=== PATIENT | male | born 1940 | race African-American/Black ===

== ENCOUNTER 2016-09-03 21:49 | Emergency (ER) | payer MEDICARE ==
--- NOTE | 2016-09-03 23:42 | ER Document Report ---
ED Medical Screen (RME) - General Stated Complaint: LEG PAIN Time seen by provider: 23:38 Mode of Arrival: Ambulatory Information source: Patient Notes: 76-year-old male presents to ED for pains, swelling, and numbness to his right leg up to his groin. He states she's had blood clots in the past states he was on blood thinners about 3 years ago not now. Left calf 32 cm right calf 32-1/2 cm. I have greeted and performed a rapid initial assessment of this patient. A comprehensive ED assessment and evaluation of the patient, analysis of test results and completion of medical decision making process will be conducted by an additional ED providers. TRAVEL OUTSIDE OF THE U[place] IN LAST 30 DAYS: No - Related Data Allergies/Adverse Reactions: No Known Allergies Allergy (Verified 03/28/16 20:03) Past Medical History - Past Medical History Cardiac Medical History: Reports: Hx Hypertension Renal/ Medical History: Reports: Hx Kidney Stones - Immunizations Hx Diphtheria, Pertussis, Tetanus Vaccination: Yes Physical Exam - Vital signs Vitals: Temp Pulse Resp BP Pulse Ox 98.1 F 64 16 148/71 H 98 09/03/16 23:13 09/03/16 23:13 09/03/16 23:13 09/03/16 23:13 09/03/16 23:13 Course - Vital Signs Vital signs: Temp Pulse Resp BP Pulse Ox 98.1 F 64 16 148/71 H 98 09/03/16 23:13 09/03/16 23:13 09/03/16 23:13 09/03/16 23:13 09/03/16 23:13
--- NOTE | 2016-09-04 06:40 | ER Document Report ---
ED Extremity Problem, Lower - General Mode of Arrival: Ambulatory Information source: Patient TRAVEL OUTSIDE OF THE U.S. IN LAST 30 DAYS: No - HPI Patient complains to provider of: Pain Location: Leg - Right Occurred: Other - ~08/31/16 Onset/Duration: Gradual, Persistent Context: denies: Recent travel Associated symptoms: Painful ambulation <BEKA DEWITT - Last Filed: 09/04/16 06:35> <TOR ACE - Last Filed: 09/04/16 08:14> - General Chief Complaint: Leg Pain Stated Complaint: LEG PAIN Notes: Patient is a 76-year-old male presenting to the emergency department chief complaint right leg pain for the past 3-4 days. Patient states that his leg feels numb from the hip down with pins and needles. Patient states the pain came on gradually after lifting some heavy items at work at [employer]. Patient has a history of blood clot and his leg, but he cannot remember which leg because it was a few years ago. (BEKA DEWITT) - Related Data Allergies/Adverse Reactions: No Known Allergies Allergy (Verified 09/03/16 23:39) Past Medical History - General Information source: Patient - Social History Smoking Status: Never Smoker Chew tobacco use (# tins/day): No Frequency of alcohol use: None Drug Abuse: None Family History: Reviewed & Not Pertinent - Past Medical History Cardiac Medical History: Reports: Hx Hypertension Renal/ Medical History: Reports: Hx Benign Prostatic Hyperplasia, Hx Kidney Stones. Denies: Hx Peritoneal Dialysis - Immunizations Hx Diphtheria, Pertussis, Tetanus Vaccination: Yes <BEKA DEWITT - Last Filed: 09/04/16 06:35> Review of Systems - Review of Systems Constitutional: No symptoms reported EENT: No symptoms reported Cardiovascular: No symptoms reported Respiratory: No symptoms reported Gastrointestinal: No symptoms reported Genitourinary: No symptoms reported Male Genitourinary: No symptoms reported Musculoskeletal: See HPI, Other - R. leg pain and numbness Skin: No symptoms reported Hematologic/Lymphatic: No symptoms reported Neurological/Psychological: No symptoms reported -: Yes All other systems reviewed and negative <BEKA DEWITT - Last Filed: 09/04/16 06:35> Physical Exam - General General appearance: Appears well, Alert In distress: None - HEENT Head: Normocephalic, Atraumatic Eyes: Normal Pupils: PERRL - Respiratory Respiratory status: No respiratory distress Chest status: Nontender Breath sounds: Normal Chest palpation: Normal - Cardiovascular Rhythm: Regular Heart sounds: Normal auscultation Murmur: No - Abdominal Inspection: Normal Distension: No distension Bowel sounds: Normal Tenderness: Nontender Organomegaly: No organomegaly - Back Back: Normal, Nontender - Extremities General upper extremity: Normal inspection Thigh: Tender - Tenderness over anterior lateral thigh from hip down. - Neurological Neuro grossly intact: Yes Cognition: Normal Elberta Coma Scale Eye Opening: Spontaneous Elberta Coma Scale Verbal: Oriented Claudia Coma Scale Motor: Obeys Commands Elberta Coma Scale Total: 15 Speech: Normal - Psychological Associated symptoms: Normal affect, Normal mood - Skin Skin Temperature: Warm Skin Moisture: Dry Skin Color: Normal <BEKA DEWITT - Last Filed: 09/04/16 06:35> Course <BEKA DEWITT - Last Filed: 09/04/16 06:35> - Laboratory Result Diagrams: 09/04/16 06:45 09/04/16 06:45 <TOR ACE - Last Filed: 09/04/16 08:14> - Re-evaluation Re-evalutation: 09/04/16 08:13 The patient's creatinine has gone up quite a bit since it was checked here in May 2016. He admits he has been taking Motrin for his thigh pain. He was advised to stop all NSAIDs, and several of these were listed for him so he understands. He was advised to take only Tylenol for his discomfort, and primarily rest. Muscles. He is also advised to follow-up with [facility] this week and he was given a copy of his lab work in May and today. ( TOR ACE) - Vital Signs Vital signs: Temp Pulse Resp BP Pulse Ox 98.1 F 64 16 148/71 H 98 09/03/16 23:13 09/03/16 23:13 09/03/16 23:13 09/03/16 23:13 09/03/16 23:13 (BEKA DEWITT) (TOR ACE) - Laboratory Laboratory results interpreted by va: 09/04/16 09/04/16 06:45 06:45 RBC 4.10 L Hgb 12.4 L Hct 37.2 L RDW 15.1 H Seg Neutrophils % 38.0 L Potassium 5.1 H BUN 25 H Creatinine 2.01 H Est GFR ( Amer) 39 L Est GFR (Non-Af Amer) 33 L (TOR ACE) Discharge <BEKA DEWITT - Last Filed: 09/04/16 06:35> <TOR ACE - Last Filed: 09/04/16 08:14> - Discharge Clinical Impression: Renal failure Muscle strain of right thigh Qualifiers: Encounter type: initial encounter Qualified Code(s): S76.911A - Strain of unspecified muscles, fascia and tendons at thigh level, right thigh, initial encounter Condition: Stable Disposition: HOME, SELF-CARE Additional Instructions: Muscle Strain: You have PROBABLY strained a muscle. This often occurs with strenuous exertion, or during an injury that suddenly stretches the muscle. The seriousness of a strain varies. Some strains heal within days, others cause problems for months. X-rays cannot show a muscle strain. X-rays are taken only if symptoms suggest that a fracture could be present. The usual treatment of a muscle strain is rest and ice packs. Sometimes, a sling, splint, or crutches may be necessary to rest the muscle. The muscle can be used again once pain subsides. Severe strains require a special exercise and stretching program to prevent permanent stiffness and disability. Your doctor will advise you if this will be necessary. Call the doctor immediately if pain or swelling becomes severe, or if numbness or discoloration develop. //////////////////////////////////////////////////////////////////////////////// /////////////////////////////////////////////////////////////////////////////// Your pain seems to be coming from the anterior and anterolateral thigh muscles. This is not related to the vein system or clots. Of more concern is we discovered that your serum creatinine has gone up quite a lot in the past 3 months. This indicates worsening kidney function. You should follow-up with your primary care provider this week to review the lab work. Drink plenty of water. Do not take Motrin, aspirin, Aleve, or any other nonsteroidal anti-inflammatory medication for your pain Try to limit your walking to let the muscle rest. RETURN TO THE EMERGENCY ROOM IF ANY NEW OR WORSENING SYMPTOMS. Forms: Return to Work Referrals: [facility] [Provider Group] - Follow up in 3-5 days Scribe Attestation: 09/04/16 08:05 I personally performed the services described in the documentation, reviewed and edited the documentation which was dictated to the scribe in my presence, and it accurately records my words and actions. (TOR ACE) Scribe Documentation - Scribe Written by Scribe:: Beka Dewitt 09/04/2016 0638 acting as scribe for :: Juan Ramon <BEKA DEWITT - Last Filed: 09/04/16 06:35>
[2016-09-04 06:59] LABS: ABSOLUTE BASOPHILS # (AUTO) 0.1 10^3/uL (0.0-0.2); ABSOLUTE EOSINOPHILS # (AUTO) 0.2 10^3/uL (0.0-0.6); ABSOLUTE LYMPHOCYTES (AUTO) 2.3 10^3/uL (0.5-4.7); ABSOLUTE MONOCYTES (AUTO) 0.6 10^3/uL (0.1-1.4); ABSOLUTE NEUT (AUTO) 1.9 10^3/uL (1.7-8.2); BASOPHILS % (AUTO) 1.1 % (0-2); EOSINOPHILS % (AUTO) 4.4 % (0-6); HEMATOCRIT 37.2 % (37.9-51.0); HEMOGLOBIN 12.4 g/dL (13.5-17.0); LYMPHOCYTES % (AUTO) 44.9 % (13-45); MEAN CORPUSCULAR HEMOGLOBIN 30.3 pg (27.0-33.4); MEAN CORPUSCULAR HGB CONC 33.3 g/dL (32.0-36.0); MEAN CORPUSCULAR VOLUME 91 fl (80-97); MONOCYTES % (AUTO) 11.6 % (3-13); RED CELL DISTRIBUTION WIDTH 15.1 % (11.5-14.0); WHITE BLOOD COUNT 5.1 10^3/uL (4.0-10.5)
[2016-09-04 07:12] LABS: ALANINE AMINOTRANSFERASE 25 U/L (21-72); ALBUMIN 3.8 g/dL (3.5-5.0); ALKALINE PHOSPHATASE 61 U/L (38-126); ANION GAP 7 (5-19); ASPARTATE AMINO TRANSFERASE 26 U/L (17-59); BILIRUBIN,TOTAL 0.5 mg/dL (0.2-1.3); BLOOD UREA NITROGEN 25 mg/dL (7-20); CALCIUM 9.8 mg/dL (8.4-10.2); CARBON DIOXIDE 29 mmol/L (22-30); CHLORIDE 104 mmol/L (98-107); CREATINE KINASE 127 U/L (55-170); CREATININE RESULT 2.01 mg/dL (0.52-1.25); GLUCOSE 98 mg/dL (75-110); POTASSIUM 5.1 mmol/L (3.6-5.0); SODIUM 140.4 mmol/L (137-145); TOTAL PROTEIN 6.6 g/dL (6.3-8.2)
[2016-09-04 08:28] VITALS: BP 149/66
== END 2016-09-04 08:27 | disposition home or self-care (01) ==
LOC: ER 21:49
DX: S76.911A Strain of unspecified muscles, fascia and tendons at thigh level, right thigh, initial encounter (principal); X50.0XXA Overexertion from strenuous movement or load, initial encounter; Y92.512 Supermarket, store or market as the place of occurrence of the external cause; Y99.0 Civilian activity done for income or pay; N19 Unspecified kidney failure; I10 Essential (primary) hypertension; R20.0 Anesthesia of skin; M79.651 Pain in right thigh; Z86.718 Personal history of other venous thrombosis and embolism
CPT/HCPCS: 36415; 80053; 82550; 85025; 85379; 99283

== ENCOUNTER 2016-10-02 05:34 | Emergency (ER) | payer OTHER, MEDICARE ==
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
[2016-10-02 09:13] VITALS: BP 148/75
== END 2016-10-02 09:05 | disposition home or self-care (01) ==
LOC: ER 05:34
DX: G62.9 Polyneuropathy, unspecified (principal); M79.651 Pain in right thigh; V48.5XXA Car driver injured in noncollision transport accident in traffic accident, initial encounter; I12.9 Hypertensive chronic kidney disease with stage 1 through stage 4 chronic kidney disease, or unspecified chronic kidney disease; N18.9 Chronic kidney disease, unspecified
CPT/HCPCS: 93971; 99283

== ENCOUNTER 2017-11-15 16:39 | Emergency (ER) | payer MEDICARE ==
[2017-11-15] MEDS ORDERED: MAG HYDROX/AL HYDROX/SIMETH SUSP 30 ML UDCUP PO ONE (17:18)
[2017-11-15] MEDS ORDERED: METOCLOPRAMIDE HCL ORAL SOLN 10 MG/10 ML UDCUP PO ONE (17:18)
[2017-11-15] MEDS ORDERED: LIDOCAINE 2% VISCOUS SOLN 20 ML UDCUP PO ONE (17:18)
[2017-11-15] MEDS ORDERED: NORMAL SALINE 1000 ML 1,000 ML IV ONE (17:19)
[2017-11-15] MEDS ORDERED: KETOROLAC TROMETHAMINE INJ/PF 30 MG/1 ML SDV IV ONE (17:19)
--- NOTE | 2017-11-15 17:19 | ER Document Report ---
ED Medical Screen (RME) - General Chief Complaint: Skin Problem Stated Complaint: BODY PAIN Time Seen by Provider: 11/15/17 17:04 TRAVEL OUTSIDE OF THE U.S. IN LAST 30 DAYS: No - HPI Notes: 11/15/17 17:14 Patient is a 77-year-old male presents to the ED complaining of epigastric abdominal pain as well as continued pain from his shingles outbreak over the last couple weeks. Patient states that his abdominal pain is a burning sensation that is worsened with any p.o. intake. Patient states that he has not been able to eat or drink much of anything in the last 4 days. He still urinating normally otherwise and having bowel movements. Patient states that he believes he was on antiviral medications during the shingles outbreak initially, but has had a lot of pain in this area since then. Denies any drug allergies. Denies any headache, fever, URI, sore throat, chest pain, palpitations, syncope, cough, shortness of breath, wheeze, dyspnea, urinary retention, dysuria, hematuria, loss of control of bowel or bladder, numbness/ tingling, saddle anesthesia, muscle paralysis/weakness, or rash. I have treated and performed a rapid initial assessment of this patient. A comprehensive ED assessment and evaluation of the patient, analysis of test results and completion of medical decision making process will be conducted by additional ED providers. PHYSICAL EXAMINATION: GENERAL: Well-appearing, well-nourished and in no acute distress. A&Ox4. Answers questions appropriately. LUNGS: Breath sounds clear to auscultation bilaterally and equal. No wheezes rales or rhonchi. HEART: Regular rate and rhythm without murmurs, rubs, gallops. ABDOMEN: Soft, nondistended abdomen. No guarding, no rebound. No masses appreciated. Normal bowel sounds present. No CVA tenderness bilaterally. + moderate epigastric tenderness Extremities: No cyanosis, clubbing, or edema b/l. NEUROLOGICAL: Normal speech, normal gait. PSYCH: Normal mood, normal affect. Skin: herpes zoster approx dermatome T10-11, does not appear acute. - Related Data Allergies/Adverse Reactions: No Known Allergies Allergy (Verified 11/15/17 16:50) Past Medical History - Past Medical History Cardiac Medical History: Reports: Hx Hypertension Renal/ Medical History: Reports: Hx Benign Prostatic Hyperplasia, Hx Kidney Stones. Denies: Hx Peritoneal Dialysis - Immunizations Hx Diphtheria, Pertussis, Tetanus Vaccination: Yes Physical Exam - Vital signs Vitals: Temp Pulse Resp BP Pulse Ox 97.9 F 87 18 109/71 98 11/15/17 16:46 11/15/17 16:46 11/15/17 16:46 11/15/17 16:46 11/15/17 16:46 Course - Vital Signs Vital signs: Temp Pulse Resp BP Pulse Ox 97.9 F 87 18 109/71 98 11/15/17 16:46 11/15/17 16:46 11/15/17 16:46 11/15/17 16:46 11/15/17 16:46
[2017-11-15 18:29] LABS: ABSOLUTE EOSINOPHILS # (AUTO) 0.1 10^3/uL (0.0-0.6); ABSOLUTE LYMPHOCYTES (AUTO) 1.9 10^3/uL (0.5-4.7); ABSOLUTE MONOCYTES (AUTO) 0.5 10^3/uL (0.1-1.4); ABSOLUTE NEUT (AUTO) 1.9 10^3/uL (1.7-8.2); BASOPHILS % (AUTO) 0.3 % (0-2); EOSINOPHILS % (AUTO) 2.5 % (0-6); HEMATOCRIT 37.4 % (37.9-51.0); HEMOGLOBIN 12.6 g/dL (13.5-17.0); LYMPHOCYTES % (AUTO) 43.5 % (13-45); MEAN CORPUSCULAR HEMOGLOBIN 30.7 pg (27.0-33.4); MEAN CORPUSCULAR HGB CONC 33.8 g/dL (32.0-36.0); MEAN CORPUSCULAR VOLUME 91 fl (80-97); PLATELET COUNT 240 10^3/uL (150-450); RED BLOOD COUNT 4.11 10^6/uL (4.35-5.55); RED CELL DISTRIBUTION WIDTH 14.9 % (11.5-14.0); SEGMENTED NEUTROPHILS % (AUTO) 42.7 % (42-78); TOTAL CELLS COUNTED % (AUTO) 100 %; WHITE BLOOD COUNT 4.4 10^3/uL (4.0-10.5)
[2017-11-15 18:47] LABS: ALANINE AMINOTRANSFERASE 20 U/L (21-72); ALBUMIN 4.3 g/dL (3.5-5.0); ALKALINE PHOSPHATASE 64 U/L (38-126); ANION GAP 8 (5-19); ASPARTATE AMINO TRANSFERASE 27 U/L (17-59); BILIRUBIN,DIRECT 0.3 mg/dL (0.0-0.4); BILIRUBIN,TOTAL 0.7 mg/dL (0.2-1.3); BLOOD UREA NITROGEN 19 mg/dL (7-20); CALCIUM 10.5 mg/dL (8.4-10.2); CARBON DIOXIDE 34 mmol/L (22-30); CHLORIDE 100 mmol/L (98-107); GLUCOSE 110 mg/dL (75-110); LIPASE 156.7 U/L (23-300); POTASSIUM 4.2 mmol/L (3.6-5.0); SODIUM 141.9 mmol/L (137-145); TOTAL PROTEIN 7.8 g/dL (6.3-8.2)
--- NOTE | 2017-11-15 18:53 | ER Document Report ---
ED General - General Chief Complaint: Skin Problem Stated Complaint: BODY PAIN Time Seen by Provider: 11/15/17 17:04 Notes: The patient is a 77-year-old male who was diagnosed with shingles in [place] 3 weeks ago and finished his course of antivirals, presents with continuing pain at the site of his rash. In addition, he is having epigastric pain is a burning sensation and is worse after he eats. He moved to [place] from [place] and is in the process of obtaining a primary care physician. He denies nausea, vomiting, chest pain, shortness of breath, diarrhea, constipation, fevers or headache. TRAVEL OUTSIDE OF THE [place] IN LAST 30 DAYS: No - Related Data Allergies/Adverse Reactions: No Known Allergies Allergy (Verified 11/15/17 16:50) Past Medical History - General Information source: Patient - Social History Smoking Status: Former Smoker Family History: Reviewed & Not Pertinent Patient has suicidal ideation: No Patient has homicidal ideation: No - Past Medical History Cardiac Medical History: Reports: Hx Hypertension Renal/ Medical History: Reports: Hx Benign Prostatic Hyperplasia, Hx Kidney Stones. Denies: Hx Peritoneal Dialysis - Immunizations Hx Diphtheria, Pertussis, Tetanus Vaccination: Yes Review of Systems - Review of Systems Notes: REVIEW OF SYSTEMS: CONSTITUTIONAL: -fevers, -chills EENT: -eye pain, -difficulty swallowing, -nasal congestion CARDIOVASCULAR: -chest pain, -syncope. RESPIRATORY: -cough, -SOB GASTROINTESTINAL: +epigastric abdominal pain, -nausea, -vomiting, -diarrhea GENITOURINARY: -dysuria, -hematuria MUSCULOSKELETAL: -back pain, -neck pain SKIN: +painful rash HEMATOLOGIC: -easy bruising or bleeding. LYMPHATIC: -swollen, enlarged glands. NEUROLOGICAL: -altered mental status or loss of consciousness, -headache, - neurologic symptoms PSYCHIATRIC: -anxiety, -depression. ALL OTHER SYSTEMS REVIEWED AND NEGATIVE. Physical Exam - Vital signs Vitals: Temp Pulse Resp BP Pulse Ox 97.9 F 87 18 109/71 98 11/15/17 16:46 11/15/17 16:46 11/15/17 16:46 11/15/17 16:46 11/15/17 16:46 - Notes Notes: PHYSICAL EXAMINATION: GENERAL: Well-appearing, well-nourished and in no acute distress. HEAD: Atraumatic, normocephalic. EYES: Pupils equal round and reactive to light, extraocular movements intact, sclera anicteric, conjunctiva are normal. ENT: nares patent, oropharynx clear without exudates. Moist mucous membranes. NECK: Normal range of motion, supple without lymphadenopathy LUNGS: Breath sounds clear to auscultation bilaterally and equal. No wheezes rales or rhonchi. HEART: Regular rate and rhythm without murmurs ABDOMEN: Soft, mild epigastric tenderness, normoactive bowel sounds. No guarding, no rebound. No masses appreciated. EXTREMITIES: Normal range of motion, no pitting or edema. No cyanosis. NEUROLOGICAL: Cranial nerves grossly intact. Normal speech, normal gait. Normal sensory and motor exams. PSYCH: Normal mood, normal affect. SKIN: Crusted lesions in the right T10 dermatome, consistent with shingles. Course - Re-evaluation Re-evalutation: Patient appears well. His 3 weeks of shingles are mostly crusted over, but they are still painful. Will begin him on low-dose gabapentin and Curtiss for severe pain with follow-up at his primary care physician. He also has symptoms of gastritis and esophagitis that resolved after GI cocktail and will begin him on a PPI. Blood work is unremarkable. Symptoms are atypical for ACS, aortic dissection or PE at this time. Given very strict return precautions and he understands. - Vital Signs Vital signs: Temp Pulse Resp BP Pulse Ox 98.6 F 100 18 148/84 H 100 11/15/17 19:20 11/15/17 19:20 11/15/17 19:20 11/15/17 19:20 11/15/17 19:20 - Laboratory Result Diagrams: 11/15/17 18:11 11/15/17 18:11 Laboratory results interpreted by me: 11/15/17 11/15/17 18:11 18:11 RBC 4.11 L Hgb 12.6 L Hct 37.4 L RDW 14.9 H Carbon Dioxide 34 H Creatinine 1.68 H Est GFR ( Amer) 48 L Est GFR (Non-Af Amer) 40 L Calcium 10.5 H ALT 20 L Discharge - Discharge Clinical Impression: Epigastric pain, Shingles (herpes zoster) polyneuropathy Condition: Stable Disposition: HOME, SELF-CARE Additional Instructions: Shingles You have shingles. Shingles is caused by the chicken pox virus, The virus has been surviving dormant in a nerve cell since you had chicken pox years ago. The virus has spread down a nerve root to reach the skin. Typically, an band-like area of pain and skin sensitivity develops, then small blisters erupt in the area. Shingles lasts two or three weeks, but sometimes leaves persistent pain. You are contagious -- you can give children chicken pox. But you can't give anyone shingles. Antiviral medicines (such as acyclovir or famciclovir) can help, but the rash usually worsens for about a week. Pain medication is often given if the area hurts. Antihistamines such as Benadryl may be necessary for itching if it does not respond to soda baths and calamine lotion. Sometimes cortisone medicine or nerve-block shots are necessary if pain is severe. If the area remains severely painful as the sores heal, or if you suspect an infection developing in the sores, see your doctor. Gastritis You have an inflammation of the stomach called gastritis. This commonly causes upper abdominal pain, nausea, and vomiting. In severe cases, bleeding of the stomach lining can occur. Gastritis can be caused by bacteria or viruses , alcohol, or stomach-irritating drugs. Begin with sips of clear liquids. Take increasing amounts of fluid over the first 24 hours. Then start small amounts of bland foods (such as dry toast , applesauce, mashed potato). Gradually resume your usual diet. You should take antacids every two hours until the pain has subsided. Acid -suppressing drugs may be prescribed as well. Avoid aspirin, caffeine, tobacco , and alcohol. If the abdominal pain worsens, or there is evidence of major bleeding in the stomach (such as black, tarry stool, bloody or black vomit, or lightheadedness), you should return immediately. Call the doctor if you aren't improved in 24 to 36 hours. Prescriptions: Gabapentin [Neurontin 300 mg Capsule] 300 mg PO QHS #30 cap Hydrocodone/Acetaminophen [Curtiss 5-325 mg Tablet] 1 tab PO Q6H PRN #10 tablet PRN Reason: Omeprazole Magnesium [Prilosec Otc] 20 mg PO Q12H #14 tablet.dr Referrals: KATHRYN SMITH MD [[facility]UNITY BASED STAFF] - Follow up as needed
[2017-11-15 19:30] VITALS: BP 148/84
== END 2017-11-15 19:23 | disposition home or self-care (01) ==
LOC: ER 16:39
DX: R10.13 Epigastric pain (principal); B02.9 Zoster without complications; G62.9 Polyneuropathy, unspecified; I10 Essential (primary) hypertension; Z87.442 Personal history of urinary calculi
CPT/HCPCS: 99284; 96361; 96374; 36415; 83690; 85025; 80053; J3490; J1885; A9270; J7030

== ENCOUNTER 2017-11-26 14:35 | Inpatient (IN) | payer OTHER, MEDICARE ==
--- NOTE | 2017-11-26 15:24 | ER Document Report ---
ED General - General Chief Complaint: Syncope Stated Complaint: FALL/HEAD INJURY Time Seen by Provider: 11/26/17 15:08 Mode of Arrival: Medic Information source: Patient TRAVEL OUTSIDE OF THE [place] IN LAST 30 DAYS: No - HPI Patient complains to provider of: passing out Onset: Just prior to arrival Onset/Duration: Sudden Quality of pain: Dull - hit head on floor after passing out Associated symptoms: None Exacerbated by: Denies Relieved by: Denies Similar symptoms previously: No Recently seen / treated by doctor: No - just moved here from [place]-no PMD here yet Notes: 77-year-old male states he was sitting in a chair ready to take his meds for his hypertension when he passed out. He states he awoke on the floor had the phone next to him and called 911.Patient states he recently relocated here from [place] has not established a primary medical doctor yet although he does have a name to call for an appointment. He states he does have relatives that live in the area and they do visit him however he does live alone. - Related Data Allergies/Adverse Reactions: No Known Allergies Allergy (Verified 11/15/17 16:50) Past Medical History - General Information source: Patient, [facility] Records - Social History Smoking Status: Unknown if Ever Smoked Frequency of alcohol use: None Lives with: Alone Family History: Reviewed & Not Pertinent, Hypertension Patient has suicidal ideation: No Patient has homicidal ideation: No - Past Medical History Cardiac Medical History: Reports: Hx Hypertension Pulmonary Medical History: Reports: None Neurological Medical History: Reports: None Renal/ Medical History: Reports: Hx Benign Prostatic Hyperplasia, Hx Kidney Stones. Denies: Hx Peritoneal Dialysis Skin Medical History: Reports Other - Postherpetic neuralgia right flank area - Immunizations Hx Diphtheria, Pertussis, Tetanus Vaccination: Yes Review of Systems - Review of Systems Constitutional: Weakness. denies: Fever EENT: No symptoms reported Cardiovascular: Syncope, Dizziness, Lightheaded Respiratory: No symptoms reported Gastrointestinal: Diarrhea - This week, Nausea, Vomiting Genitourinary: No symptoms reported Skin: Other - Shingles Neurological/Psychological: No symptoms reported Physical Exam - Vital signs Vitals: Resp BP Pulse Ox 14 154/69 H 98 11/26/17 14:41 11/26/17 14:41 11/26/17 14:41 - Notes Notes: PHYSICAL EXAMINATION: GENERAL: Well-appearing, well-nourished and in no acute distress. HEAD: Atraumatic, normocephalic. EYES: Pupils equal round and reactive to light, extraocular movements intact, sclera anicteric, conjunctiva are normal. ENT: Nares patent, oropharynx clear without exudates. Moist mucous membranes. NECK: Normal range of motion, supple without lymphadenopathy LUNGS: Breath sounds clear to auscultation bilaterally and equal. No wheezes rales or rhonchi. HEART: Regular rate and rhythm without murmurs ABDOMEN: Soft, Right flank and right mid quadrant scarring status post shingles with current postherpetic neuralgia, nondistended abdomen. No guarding, no rebound. No masses appreciated. Musculoskeletal: Normal range of motion, +1 pitting edema. No cyanosis. NEUROLOGICAL: Cranial nerves grossly intact. Normal speech. Normal sensory, motor exams PSYCH: Normal mood, normal affect. SKIN: Warm, Dry, normal turgor, no rashes noted. Course - Re-evaluation Re-evalutation: 11/26/17 16:[address] 11/26/17 00:00 IMPRESSION: No acute intracranial changes. EVIDENCE OF ACUTE STROKE: NO. Mucosal thickening is noted left maxillary antrum. Chest X-Ray 11/26/17 15:16 IMPRESSION: NO ACUTE RADIOGRAPHIC FINDING IN THE CHEST. Labs- All tests 24 hr 11/26/17 11/26/17 16:18 16:18 WBC 4.6 RBC 4.40 Hgb 13.5 Hct 39.9 MCV 91 MCH 30.6 MCHC 33.7 RDW 15.1 H Plt Count 288 Seg Neutrophils % 61.1 Lymphocytes % 28.7 Monocytes % 8.7 Eosinophils % 0.6 Basophils % 0.9 Absolute Neutrophils 2.8 Absolute Lymphocytes 1.3 Absolute Monocytes 0.4 Absolute Eosinophils 0.0 Absolute Basophils 0.0 Sodium 141.2 Potassium 4.5 Chloride 98 Carbon Dioxide 30 Anion Gap 13 BUN 29 H Creatinine 1.92 H Est GFR ( Amer) 41 L Est GFR (Non-Af Amer) 34 L Glucose 110 Calcium 10.5 H Magnesium 2.5 H Total Bilirubin 0.7 Direct Bilirubin 0.4 Neonat Total Bilirubin Not Reportable Neonat Direct Bilirubin Not Reportable Neonat Indirect Bili Not Reportable AST 31 ALT 30 Alkaline Phosphatase 59 Total Protein 7.8 Albumin 4.3 - Vital Signs Vital signs: Temp Pulse Resp BP Pulse Ox 98.3 F 80 18 142/63 H 97 11/26/17 14:50 11/26/17 15:27 11/26/17 15:27 11/26/17 15:27 11/26/17 15:27 - Laboratory Result Diagrams: 11/26/17 16:18 11/26/17 16:18 Laboratory results interpreted by me: 11/26/17 11/26/17 16:18 16:18 RDW 15.1 H BUN 29 H Creatinine 1.92 H Est GFR ( Amer) 41 L Est GFR (Non-Af Amer) 34 L Calcium 10.5 H Magnesium 2.5 H - Diagnostic Test Radiology reviewed: Image reviewed, Reports reviewed - EKG Interpretation by Me EKG shows normal: Sinus rhythm - 75 When compared to previous EKG there are: Previous EKG unavailable Discharge - Discharge Clinical Impression: Syncope, Renal insufficiency syndrome Condition: Stable Disposition: ADMITTED INPATIENT Admitting Provider: Hospitalist - Dr. Joe Unit Admitted: Telemetry
--- NOTE | 2017-11-26 15:36 | RADIOLOGY REPORT (SQ) ---
EXAM DESCRIPTION: CT HEAD WITHOUT COMPLETED DATE/TIME: 11/26/2017 3:06 pm REASON FOR STUDY: bed1 s/p fall hit head per dr sheldon COMPARISON: None. TECHNIQUE: Axial images acquired through the brain without intravenous contrast. Images reviewed wi th bone, brain and subdural windows. Images stored on PACS. All CT scanners at this facility use dose modulation, iterative reconstruction, and/or weight based d osing when appropriate to reduce radiation dose to as low as reasonably achievable (ALARA). [facility]: Dose Right [facility]: CareDose [facility]: Dose Right [facility]: Teradose 4D [facility]: [employer] RADIATION DOSE: mGy. LIMITATIONS: Rotation during filming. FINDINGS: VENTRICLES: Normal size and contour. CEREBRUM: No masses. No hemorrhage. No midline shift. No evidence for acute infarction. Normal gra y/white matter differentiation. No areas of low density in the white matter. CEREBELLUM: No masses. No hemorrhage. No alteration of density. No evidence for acute infarction. EXTRAAXIAL SPACES: No fluid collections. No masses. ORBITS AND GLOBE: No intra- or extraconal masses. Normal contour of globe without masses. CALVARIUM: No fracture. PARANASAL SINUSES: No fluid. Mucosal thickening noted left maxillary antrum. SOFT TISSUES: No mass or hematoma. OTHER: No other significant finding. IMPRESSION: No acute intracranial changes. EVIDENCE OF ACUTE STROKE: NO. Mucosal thickening is noted left maxillary antrum. COMMENT: Quality ID # [id number]: Final reports with documentation of one or more dose reduction techniques (e.g., Automated exposure control, adjustment of the mA and/or kV according to patient size, use of iterative reconstruction technique) TECHNICAL DOCUMENTATION: JOB ID: [id number] [employer]- All Rights Reserved Reading location - IP/workstation name: [facility]
--- NOTE | 2017-11-26 15:58 | RADIOLOGY REPORT (SQ) ---
EXAM DESCRIPTION: CHEST SINGLE VIEW COMPLETED DATE/TIME: 11/26/2017 3:41 pm REASON FOR STUDY: syncope COMPARISON: None. EXAM PARAMETERS: NUMBER OF VIEWS: One view. TECHNIQUE: Single frontal radiographic view of the chest acquired. RADIATION DOSE: NA LIMITATIONS: None. FINDINGS: LUNGS AND PLEURA: No opacities, masses or pneumothorax. No pleural effusion. MEDIASTINUM AND HILAR STRUCTURES: No masses. Contour normal. HEART AND VASCULAR STRUCTURES: Heart normal in size. Normal vasculature. BONES: No acute findings. HARDWARE: None in the chest. OTHER: EKG leads over the chest. IMPRESSION: NO ACUTE RADIOGRAPHIC FINDING IN THE CHEST. TECHNICAL DOCUMENTATION: JOB ID: [id number] [employer]- All Rights Reserved Reading location - IP/workstation name: [email or web address]
[2017-11-26 16:37] LABS: ABSOLUTE LYMPHOCYTES (AUTO) 1.3 10^3/uL (0.5-4.7); ABSOLUTE MONOCYTES (AUTO) 0.4 10^3/uL (0.1-1.4); ABSOLUTE NEUT (AUTO) 2.8 10^3/uL (1.7-8.2); BASOPHILS % (AUTO) 0.9 % (0-2); EOSINOPHILS % (AUTO) 0.6 % (0-6); HEMATOCRIT 39.9 % (37.9-51.0); HEMOGLOBIN 13.5 g/dL (13.5-17.0); LYMPHOCYTES % (AUTO) 28.7 % (13-45); MEAN CORPUSCULAR HEMOGLOBIN 30.6 pg (27.0-33.4); MEAN CORPUSCULAR HGB CONC 33.7 g/dL (32.0-36.0); MEAN CORPUSCULAR VOLUME 91 fl (80-97); MONOCYTES % (AUTO) 8.7 % (3-13); PLATELET COUNT 288 10^3/uL (150-450); RED CELL DISTRIBUTION WIDTH 15.1 % (11.5-14.0); SEGMENTED NEUTROPHILS % (AUTO) 61.1 % (42-78); TOTAL CELLS COUNTED % (AUTO) 100 %; WHITE BLOOD COUNT 4.6 10^3/uL (4.0-10.5)
[2017-11-26 16:51] LABS: ALANINE AMINOTRANSFERASE 30 U/L (21-72); ALBUMIN 4.3 g/dL (3.5-5.0); ALKALINE PHOSPHATASE 59 U/L (38-126); ANION GAP 13 (5-19); ASPARTATE AMINO TRANSFERASE 31 U/L (17-59); BILIRUBIN,DIRECT 0.4 mg/dL (0.0-0.4); BILIRUBIN,TOTAL 0.7 mg/dL (0.2-1.3); BLOOD UREA NITROGEN 29 mg/dL (7-20); CALCIUM 10.5 mg/dL (8.4-10.2); CARBON DIOXIDE 30 mmol/L (22-30); CHLORIDE 98 mmol/L (98-107); GLUCOSE 110 mg/dL (75-110); POTASSIUM 4.5 mmol/L (3.6-5.0); SODIUM 141.2 mmol/L (137-145); TOTAL PROTEIN 7.8 g/dL (6.3-8.2)
[2017-11-26] MEDS ORDERED: ONDANSETRON HCL INJ/PF 4 MG/2 ML SDV IV PRN (17:03)
[2017-11-26] MEDS ORDERED: MAGNESIUM HYDROXIDE SUSP 30 ML UDCUP PO PRN (17:03)
[2017-11-26] MEDS ORDERED: NORMAL SALINE 1000 ML 1,000 ML IV PRN (17:18)
[2017-11-26 17:32] LABS: APPEARANCE,URINE SLIGHTLY-CLOUDY; BILIRUBIN,URINE NEGATIVE (NEGATIVE); COLOR,URINE YELLOW; GLUCOSE, URINE NEGATIVE (NEGATIVE); KETONES,URINE 20 mg/dL (NEGATIVE); LEUKOCYTE ESTERASE,URINE SMALL (NEGATIVE); NITRITE,URINE NEGATIVE (NEGATIVE); PROTEIN,URINE NEGATIVE (NEGATIVE); URINE SPECIFIC GRAVITY 1.015; UROBILINOGEN,URINE NEGATIVE mg/dL (<2.0)
--- NOTE | 2017-11-26 18:00 | PDOC H&P ---
History of Present Illness Patient complains of: Syncopal episode History of Present Illness: CANDIDO WHITFIELD JR is a 77 year old male who presents to [facility]'s ER after he passed out at home. He states he was sitting in a chair ready to take his meds for his hypertension when he passed out. He states he awoke on the floor had the phone next to him and called 911.Patient states he recently relocated here from [place] has not established a primary medical doctor yet although he does have a name to call for an appointment. He states he does have relatives that live in the area and they do visit him however he does live alone. He states for the last 2 months he has had difficulty swallowing food. He feels like his food gets stuck. He describes drinking hot water to push down. Started pureing all his food over the last month. He reports at least a 20 pound weight loss over the last 2 months. Past Medical History Medical History: None Cardiac Medical History: Reports: Hypertension Pulmonary Medical History: Reports: None Neurological Medical History: Reports: None Malignancy Medical History: Reports: None GI Medical History: Reports: Gastroesophageal Reflux Disease, Other - Significant dysphagia Musculoskeltal Medical History: Reports: None Skin Medical History: Reports: Other - Postherpetic neuralgia right flank area Psychiatric Medical History: Reports: None Hematology: Reports: None Infectious Medical History: Reports: None Past Surgical History Past Surgical History: Reports: Vascular Surgery - Left carotid artery endarterectomuy Social History Information Source: Patient Lives with: Alone Smoking Status: Unknown if Ever Smoked Frequency of Alcohol Use: None Hx Recreational Drug Use: Yes Drugs: None - Advance Directive Resuscitation Status: Full Code Surrogate healthcare decision maker:: Daughter in [place] Family History Family History: Hypertension Parental Family History Reviewed: Yes Children Family History Reviewed: Yes Sibling(s) Family History Reviewed.: Yes Medication/Allergy Home Medications: Gabapentin [Neurontin 300 mg Capsule] 300 mg PO QHS #30 cap 11/15/17 Hydrocodone/Acetaminophen [Abbott 5-325 mg Tablet] 1 tab PO Q6HP PRN 11/26/17 Omeprazole Magnesium [Prilosec Otc] 20 mg PO Q12 11/26/17 Allergies/Adverse Reactions: No Known Allergies Allergy (Verified 11/15/17 16:50) Review of Systems Constitutional: PRESENT: anorexia, weight loss Eyes: ABSENT: visual disturbances Ears: ABSENT: hearing changes Cardiovascular: ABSENT: chest pain, dyspnea on exertion, edema, orthropnea, palpitations Respiratory: ABSENT: as per HPI, cough, dyspnea, hemoptysis, sputum, other Gastrointestinal: PRESENT: dysphagia Genitourinary: ABSENT: dysuria, hematuria Musculoskeletal: ABSENT: joint swelling Integumentary: ABSENT: rash, wounds Neurological: ABSENT: abnormal gait, abnormal speech, confusion, dizziness, focal weakness, syncope Psychiatric: ABSENT: anxiety, depression, homidical ideation, suicidal ideation Endocrine: ABSENT: cold intolerance, heat intolerance, polydipsia, polyuria Hematologic/Lymphatic: ABSENT: as per HPI, easy bleeding, easy bruising, lymphadenopathy, other Physical Exam Vital Signs: Temp Pulse Resp BP Pulse Ox 98.3 F 80 18 142/63 H 97 11/26/17 14:50 11/26/17 15:27 11/26/17 15:27 11/26/17 15:27 11/26/17 15:27 Intake & Output 11/25/17 11/26/17 11/27/17 06:59 06:59 06:59 Weight 85.729 kg General appearance: PRESENT: no acute distress, thin, well-developed, well- nourished Head exam: PRESENT: atraumatic, normocephalic Eye exam: PRESENT: conjunctiva pink, EOMI, PERRLA. ABSENT: scleral icterus Ear exam: PRESENT: normal external ear exam Mouth exam: PRESENT: moist, tongue midline Neck exam: ABSENT: carotid bruit, JVD, lymphadenopathy, thyromegaly Respiratory exam: PRESENT: clear to auscultation karina. ABSENT: rales, rhonchi, wheezes Cardiovascular exam: PRESENT: RRR. ABSENT: diastolic murmur, rubs, systolic murmur Pulses: PRESENT: normal dorsalis pedis pul Vascular exam: PRESENT: normal capillary refill GI/Abdominal exam: PRESENT: normal bowel sounds, soft. ABSENT: distended, guarding, mass, organolmegaly, rebound, tenderness Rectal exam: PRESENT: deferred Extremities exam: PRESENT: full ROM. ABSENT: calf tenderness, clubbing, pedal edema Neurological exam: PRESENT: alert, awake, oriented to person, oriented to place , oriented to time, oriented to situation, CN II-XII grossly intact. ABSENT: motor sensory deficit Psychiatric exam: PRESENT: appropriate affect, normal mood. ABSENT: homicidal ideation, suicidal ideation Skin exam: PRESENT: dry, intact, warm. ABSENT: cyanosis, rash Results Laboratory Results: 11/26/17 16:18 11/26/17 16:18 11/26/17 11/26/17 16:18 16:18 WBC 4.6 RBC 4.40 Hgb 13.5 Hct 39.9 MCV 91 MCH 30.6 MCHC 33.7 RDW 15.1 H Plt Count 288 Seg Neutrophils % 61.1 Lymphocytes % 28.7 Monocytes % 8.7 Eosinophils % 0.6 Basophils % 0.9 Absolute Neutrophils 2.8 Absolute Lymphocytes 1.3 Absolute Monocytes 0.4 Absolute Eosinophils 0.0 Absolute Basophils 0.0 Sodium 141.2 Potassium 4.5 Chloride 98 Carbon Dioxide 30 Anion Gap 13 BUN 29 H Creatinine 1.92 H Est GFR ( Amer) 41 L Est GFR (Non-Af Amer) 34 L Glucose 110 Calcium 10.5 H Magnesium 2.5 H Total Bilirubin 0.7 AST 31 ALT 30 Alkaline Phosphatase 59 Total Protein 7.8 Albumin 4.3 11/26/17 16:18 Troponin I 0.014 Impressions: Head CT 11/26/17 00:00 IMPRESSION: No acute intracranial changes. EVIDENCE OF ACUTE STROKE: NO. Mucosal thickening is noted left maxillary antrum. Chest X-Ray 11/26/17 15:16 IMPRESSION: NO ACUTE RADIOGRAPHIC FINDING IN THE CHEST. Assessment & Plan - Diagnosis (1) Syncope Qualifiers: Syncope type: unspecified Qualified Code(s): R55 - Syncope and collapse Is this a current diagnosis for this admission?: Yes Plan: We will place patient on telemetry and monitor overnight. Check carotid duplex. (2) Acute kidney failure Qualifiers: Acute renal failure type: with acute tubular necrosis Qualified Code(s): N17.0 - Acute kidney failure with tubular necrosis Is this a current diagnosis for this admission?: Yes Plan: Most likely secondary to dehydration patient has not been eating and drinking well over the last month he reports. His last reported at least 20 pounds. Will hydrate with IV normal saline overnight recheck BMP in the morning. (4) GERD (gastroesophageal reflux disease) Qualifiers: Esophagitis presence: esophagitis presence not specified Qualified Code(s) : K21.9 - Gastro-esophageal reflux disease without esophagitis Is this a current diagnosis for this admission?: Yes Plan: We will obtain an upper GI series tomorrow. If stricture is present will refer to gastroenterology (5) Herpes zoster Is this a current diagnosis for this admission?: Yes Plan: Continue gabapentin and hydrocodone for pain (6) Essential hypertension Is this a current diagnosis for this admission?: Yes Plan: Continue current home medications. We will obtain orthostatic vital signs every shift.
--- NOTE | 2017-11-26 20:15 | EKG REPORT ---
SEVERITY:- BORDERLINE ECG - SINUS RHYTHM PROBABLE LEFT ATRIAL ABNORMALITY : Confirmed by: Kelsey Alvarez 26-Nov-2017 20:14:33
[2017-11-26] MEDS: GABAPENTIN 300 MG CAPSULE PO SCH (23:19)
[2017-11-27] MEDS: LANSOPRAZOLE 15 MG TAB.RAP.DR PO SCH ×2 (05:42→19:10)
[2017-11-27 06:44] LABS: ANION GAP 13 (5-19); BLOOD UREA NITROGEN 26 mg/dL (7-20); CALCIUM 9.9 mg/dL (8.4-10.2); CARBON DIOXIDE 27 mmol/L (22-30); CHLORIDE 102 mmol/L (98-107); GLUCOSE 84 mg/dL (75-110); POTASSIUM 4.2 mmol/L (3.6-5.0); SODIUM 142.1 mmol/L (137-145)
[2017-11-27] MEDS: ENOXAPARIN SODIUM INJ 40 MG/0.4 ML DISP.SYRIN SUBCUT SCH (10:17)
--- NOTE | 2017-11-27 10:42 | RADIOLOGY REPORT (SQ) ---
EXAM DESCRIPTION: UGI SERIES COMPLETED DATE/TIME: 11/27/2017 9:39 am REASON FOR STUDY: Increasing dysphagia with solids, COMPARISON: Chest films 11/26/2017 TECHNIQUE: Under fluoroscopic guidance, patient ingested effervescent granules followed by thick and thin barium. Fluoroscopic spot images and routine radiographic images acquired and stored on PACS. 12 MM BARIUM TABLET GIVEN: Yes. No significant delay in passage. LIMITATIONS: Limited visualization of the gastric antrum FLUOROSCOPY TIME: FLUORO TIME: 3.9 minutes 24 digital radiographic images saved to PACS. FINDINGS: NEUROMUSCULAR COORDINATION OF SWALLOW: Normal. No aspiration. ESOPHAGEAL MOTILITY: Normal peristalsis. No esophageal spasm. ESOPHAGEAL MUCOSA: Normal mucosa without masses or ulceration. GASTRO-ESOPHAGEAL JUNCTION: No hiatal hernia. Minimal gastroesophageal reflux to the distal 3rd of t he esophagus. 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 This overlaps the antrum region which is difficult to visualize on george vu's study. GASTRIC OUTLET: No delay in emptying. Normal pylorus. DUODENAL BULB: Normal distention. No spasm or ulceration. DUODENUM: Mucosa normal. No extrinsic masses or malrotation. PROXIMAL SMALL BOWEL: Mucosa normal. No extrinsic masses or malrotation. NON-GI TRACT STRUCTURES: Degenerative disc changes at C4-5 and C5-6 OTHER: No other significant finding. IMPRESSION: Mild gastroesophageal reflux to the distal 3rd of the esophagus. No Schatzki's ring or distal esophageal stricture. Partial organoaxial gastric volvulus, where the body of the stomach is more superior than the GE junc tion and pylorus. This partially obscures the gastric antrum. COMMENT: Quality ID [id number]: Final reports for procedures using fluoroscopy that document radiation exp osure indices, or exposure time and number of fluorographic images (if radiation exposure indices are not available) TECHNICAL DOCUMENTATION: JOB ID: [id number] [employer]- All Rights Reserved Reading location - IP/workstation name: [email or web address]
[2017-11-27] MEDS: HYDROCODONE/ACETAMINOPHEN 5-325 MG TABLET PO PRN ×2 (14:00→22:20)
--- NOTE | 2017-11-27 16:11 | PDOC PROGRESS REPORT ---
Subjective Progress Note for:: 11/27/17 Subjective:: Patient is seen resting in bed. He denies any chest pain, shortness of breath or dyspnea. He denies any further dizziness. He denies any nausea. He continues to have abdominal pain. He has had no vomiting. He continues to complain of dysphagia. His upper GI showed no esophageal strictures or narrowing. He denies any other complaints at the present time. Reason For Visit: SYNCOPE Physical Exam Vital Signs: Temp Pulse Resp BP Pulse Ox 98.5 F 78 16 132/62 H 98 11/27/17 11:09 11/27/17 11:09 11/27/17 11:09 11/27/17 11:09 11/27/17 11:09 Intake & Output 11/26/17 11/27/17 11/28/17 06:59 06:59 06:59 Intake Total 1175 Output Total 400 Balance 775 Weight 75.8 kg General appearance: PRESENT: no acute distress, well-developed, well-nourished Head exam: PRESENT: atraumatic, normocephalic Eye exam: PRESENT: conjunctiva pink, EOMI, PERRLA. ABSENT: scleral icterus Ear exam: PRESENT: normal external ear exam Mouth exam: PRESENT: moist, tongue midline Neck exam: ABSENT: carotid bruit, JVD, lymphadenopathy, thyromegaly Respiratory exam: PRESENT: clear to auscultation karina. ABSENT: rales, rhonchi, wheezes Cardiovascular exam: PRESENT: RRR. ABSENT: diastolic murmur, rubs, systolic murmur Pulses: PRESENT: normal dorsalis pedis pul Vascular exam: PRESENT: normal capillary refill GI/Abdominal exam: PRESENT: normal bowel sounds, soft. ABSENT: distended, guarding, mass, organolmegaly, rebound, tenderness Rectal exam: PRESENT: deferred Extremities exam: PRESENT: full ROM. ABSENT: calf tenderness, clubbing, pedal edema Neurological exam: PRESENT: alert, awake, oriented to person, oriented to place , oriented to time, oriented to situation, CN II-XII grossly intact. ABSENT: motor sensory deficit Psychiatric exam: PRESENT: appropriate affect, normal mood. ABSENT: homicidal ideation, suicidal ideation Skin exam: PRESENT: dry, intact, warm. ABSENT: cyanosis, rash Results Laboratory Results: 11/27/17 05:31 11/26/17 11/27/17 17:15 05:31 Sodium 142.1 Potassium 4.2 Chloride 102 Carbon Dioxide 27 Anion Gap 13 BUN 26 H Creatinine 1.59 H Est GFR ( Amer) 51 L Est GFR (Non-Af Amer) 43 L Glucose 84 Calcium 9.9 Urine Color YELLOW Urine Appearance SLIGHTLY-CLOUDY Urine pH 5.0 Ur Specific [place] 1.015 Urine Protein NEGATIVE Urine Glucose (UA) NEGATIVE Urine Ketones 20 H Urine Blood NEGATIVE Urine Nitrite NEGATIVE Ur Leukocyte Esterase SMALL H Urine WBC (Auto) 9 Urine RBC (Auto) 2 Impressions: Head CT 11/26/17 00:00 IMPRESSION: No acute intracranial changes. EVIDENCE OF ACUTE STROKE: NO. Mucosal thickening is noted left maxillary antrum. Chest X-Ray 11/26/17 15:16 IMPRESSION: NO ACUTE RADIOGRAPHIC FINDING IN THE CHEST. Upper GI Series 11/27/17 00:00 IMPRESSION: Mild gastroesophageal reflux to the distal 3rd of the esophagus. No Schatzki's ring or distal esophageal stricture. Partial organoaxial gastric volvulus, where the body of the stomach is more superior than the GE junction and pylorus. This partially obscures the gastric antrum. Assessment & Plan - Diagnosis (1) Syncope Qualifiers: Syncope type: unspecified Qualified Code(s): R55 - Syncope and collapse Is this a current diagnosis for this admission?: Yes Plan: No further dizziness. He is unsteady on his feet. Will consult with physical therapy (2) Acute kidney failure Qualifiers: Acute renal failure type: with acute tubular necrosis Qualified Code(s): N17.0 - Acute kidney failure with tubular necrosis Is this a current diagnosis for this admission?: Yes Plan: Most likely secondary to dehydration patient has not been eating and drinking well over the last month he reports. His last reported at least 20 pounds. Will hydrate with IV normal saline overnight recheck BMP in the morning. (3) Dysphagia Qualifiers: Dysphagia type: unspecified Qualified Code(s): R13.10 - Dysphagia, unspecified Is this a current diagnosis for this admission?: Yes Plan: UGI negative. Will check CT of the abd/pelvis due to significant weight loss and abdominal pain (4) GERD (gastroesophageal reflux disease) Qualifiers: Esophagitis presence: esophagitis presence not specified Qualified Code(s) : K21.9 - Gastro-esophageal reflux disease without esophagitis Is this a current diagnosis for this admission?: Yes Plan: We will obtain an upper GI series tomorrow. If stricture is present will refer to gastroenterology (5) Herpes zoster Is this a current diagnosis for this admission?: Yes Plan: Continue gabapentin and hydrocodone for pain (6) Essential hypertension Is this a current diagnosis for this admission?: Yes Plan: Continue current home medications. We will obtain orthostatic vital signs every shift. - Time Time Spent with patient: 25-34 minutes Medications reviewed and adjusted accordingly: Yes
[2017-11-27] MEDS: GABAPENTIN 300 MG CAPSULE PO SCH (22:20)
--- NOTE | 2017-11-27 23:41 | RADIOLOGY REPORT (SQ) ---
EXAM DESCRIPTION: CT ABD/PELVIS ORAL ONLY COMPLETED DATE/TIME: 11/27/2017 10:01 pm REASON FOR STUDY: Abdominal pain, nausea, and 20 lb weight loss R10.10 UPPER ABDOMINAL PAIN, UNSPE CIFIED COMPARISON: None. TECHNIQUE: CT scan of the abdomen and pelvis performed with oral contrast and no intravenous contras t. Images reviewed with lung, soft tissue, and bone windows. Reconstructed coronal and sagittal MPR i mages reviewed. All images stored on PACS. All CT scanners at this facility use dose modulation, iterative reconstruction, and/or weight based d osing when appropriate to reduce radiation dose to as low as reasonably achievable (ALARA). [facility]: Dose Right [facility]: CareDose [facility]: Dose Right [facility]: Teradose 4D [facility]: Smart [employer] RADIATION DOSE: mGy. LIMITATIONS: Significant beam hardening- Scatter artifact from enteric contrast. FINDINGS: LOWER CHEST: Minimal linear atelectasis. NON-CONTRASTED LIVER, SPLEEN, ADRENALS: Evaluation limited by lack of IV contrast. No identified sign ificant masses. PANCREAS: No identified significant masses. No peripancreatic inflammatory changes. GALLBLADDER: No identified stones by CT criteria. No inflammatory changes to suggest cholecystitis. RIGHT KIDNEY AND URETER: No identified significant masses. Assessment limited by lack of IV contrast. No significant calcifications. No hydronephrosis or hydroureter. LEFT KIDNEY AND URETER: No identified significant masses. Assessment limited by lack of IV contrast. No significant calcifications. No hydronephrosis or hydroureter. AORTA AND RETROPERITONEUM: No aneurysm. No identified significant masses. BOWEL AND PERITONEAL CAVITY: No obvious inflammatory changes. No identified significant masses. No f ree fluid. APPENDIX: Normal. PELVIS, BLADDER, AND ABDOMINAL WALL:No free fluid. Bladder normal. BONES: No acute findings. IMPRESSION: No definite acute findings. There is significant beam hardening- scatter artifact from the enteric contrast which limits evaluation through the abdomen. TECHNICAL DOCUMENTATION: JOB ID: [id number] Quality ID # [id number]: Final reports with documentation of one or more dose reduction techniques (e.g., Au tomated exposure control, adjustment of the mA and/or kV according to patient size, use of iterative reconstruction technique) 2010 [employer]- All Rights Reserved Reading location - IP/workstation name: [email or web address]
[2017-11-28] MEDS: LANSOPRAZOLE 15 MG TAB.RAP.DR PO SCH ×2 (04:06→17:45)
[2017-11-28] MEDS: HYDROCODONE/ACETAMINOPHEN 5-325 MG TABLET PO PRN ×3 (04:06→15:27)
[2017-11-28] MEDS: ENOXAPARIN SODIUM INJ 40 MG/0.4 ML DISP.SYRIN SUBCUT SCH (09:53)
[2017-11-28] MEDS ORDERED: 1/2 NORMAL SALINE 1,000 ML IV PRN (11:39)
--- NOTE | 2017-11-28 12:35 | RADIOLOGY REPORT (SQ) ---
EXAM DESCRIPTION: CAROTID DOPPLER COMPLETED DATE/TIME: 11/28/2017 12:13 pm REASON FOR STUDY: syncope, hx carotid disease R10.10 UPPER ABDOMINAL PAIN, UNSPECIFIED COMPARISON: None. TECHNIQUE: Grayscale ultrasound, Doppler velocity and spectra, and color Doppler images acquired of the extra-cranial carotid and vertebral arteries. Images stored on PACS. LIMITATIONS: None. FINDINGS: RIGHT CAROTID CCA Velocities: Within normal limits. ICA Velocities Peak systolic 1.3 m/s. End diastolic 0.25 m/s. Proximal ICA/CCA peak systolic ratio 1.2. Intimal thickening and smooth plaque. LEFT CAROTID CCA Velocities: Within normal limits. ICA Velocities Peak systolic 0.77 m/s. End diastolic 0.23 m/s. Proximal ICA/CCA peak systolic ratio 1.0. Intimal thickening and smooth plaque. VERTEBRAL ARTERIES: Antegrade flow. Normal waveforms. SUBCLAVIAN ARTERIES: No finding. OTHER: No other significant finding. IMPRESSION: NO HEMODYNAMICALLY SIGNIFICANT STENOSIS. COMMENT: Quality ID #[id number]: Velocity criteria are extrapolated from the diameter data as defined by t he Society of Radiologists in Ultrasound Consensus Conference. Radiology 2003: 229; 340-346. TECHNICAL DOCUMENTATION: JOB ID: [id number] [employer]- All Rights Reserved Reading location - IP/workstation name: [email or web address]
--- NOTE | 2017-11-28 16:18 | PDOC PROGRESS REPORT ---
Subjective Progress Note for:: 11/28/17 Subjective:: The patient is a 77-year-old gentleman with a past medical history of Hypertension GERD Postherpetic neuralgia in the right flank He presented to the hospital on November 26 with an episode of syncope. He was sitting in a chair about to take his medications when he passed out. He woke up on the floor and called EMS. The patient recently relocated from [place] and does not have a primary care physician yet. He is reported a recent h/o dysphagia to solids and a 20 lb weight loss. Barium swallow revealed mild GERD but no schatzki's ring or distal esophageal stricture. Continues to c/o pain due to postherpetic neuralgia Reason For Visit: FALL/HEAD INJURY Physical Exam Vital Signs: Temp Pulse Resp BP Pulse Ox 98.5 F 60 16 165/64 H 96 11/28/17 11:00 11/28/17 11:00 11/28/17 11:00 11/28/17 11:00 11/28/17 11:00 Intake & Output 11/27/17 11/28/17 11/29/17 06:59 06:59 06:59 Intake Total 1175 621 Output Total 400 1400 Balance 775 -779 Weight 75.8 kg 81.3 kg General appearance: PRESENT: cooperative Head exam: PRESENT: atraumatic Eye exam: ABSENT: scleral icterus Ear exam: PRESENT: normal external ear exam Mouth exam: PRESENT: moist Respiratory exam: PRESENT: symmetrical, unlabored Cardiovascular exam: PRESENT: RRR GI/Abdominal exam: PRESENT: normal bowel sounds, soft Rectal exam: PRESENT: deferred Extremities exam: ABSENT: pedal edema Neurological exam: PRESENT: alert, awake Skin exam: PRESENT: other - R flank post herpetic rash- clearing up, no vesicles. Results Laboratory Results: 11/27/17 05:31 Impressions: Head CT 11/26/17 00:00 IMPRESSION: No acute intracranial changes. EVIDENCE OF ACUTE STROKE: NO. Mucosal thickening is noted left maxillary antrum. Chest X-Ray 11/26/17 15:16 IMPRESSION: NO ACUTE RADIOGRAPHIC FINDING IN THE CHEST. Abdomen/Pelvis CT 11/27/17 00:00 IMPRESSION: No definite acute findings. There is significant beam hardening- scatter artifact from the enteric contrast which limits evaluation through the abdomen. Upper GI Series 11/27/17 00:00 IMPRESSION: Mild gastroesophageal reflux to the distal 3rd of the esophagus. No Schatzki's ring or distal esophageal stricture. Partial organoaxial gastric volvulus, where the body of the stomach is more superior than the GE junction and pylorus. This partially obscures the gastric antrum. Assessment & Plan - Diagnosis (1) Acute kidney failure Qualifiers: Acute renal failure type: with acute tubular necrosis Qualified Code(s): N17.0 - Acute kidney failure with tubular necrosis Is this a current diagnosis for this admission?: Yes Plan: IV fluids, monitor renal function (2) Dysphagia Qualifiers: Dysphagia type: unspecified Qualified Code(s): R13.10 - Dysphagia, unspecified Is this a current diagnosis for this admission?: Yes (3) Essential hypertension Is this a current diagnosis for this admission?: Yes Plan: Amlodipine (4) GERD (gastroesophageal reflux disease) Qualifiers: Esophagitis presence: esophagitis presence not specified Qualified Code(s) : K21.9 - Gastro-esophageal reflux disease without esophagitis Is this a current diagnosis for this admission?: Yes Plan: PPI (5) Herpes zoster Is this a current diagnosis for this admission?: Yes (6) Syncope Qualifiers: Syncope type: unspecified Qualified Code(s): R55 - Syncope and collapse Is this a current diagnosis for this admission?: Yes Plan: Suspected due to orthostatic hypotension. Continue IV fluids. - Time Time Spent with patient: 25-34 minutes
[2017-11-28] MEDS: HYDROMORPHONE HCL INJ/PF 2 MG/ML AMPULE IV PRN (19:57)
[2017-11-28] MEDS: GABAPENTIN 300 MG CAPSULE PO SCH (21:28)
[2017-11-29] MEDS: HYDROMORPHONE HCL INJ/PF 2 MG/ML AMPULE IV PRN ×2 (02:10→08:30)
[2017-11-29] MEDS: LANSOPRAZOLE 15 MG TAB.RAP.DR PO SCH ×2 (05:34→17:25)
[2017-11-29 05:42] LABS: ANION GAP 11 (5-19); BLOOD UREA NITROGEN 15 mg/dL (7-20); CALCIUM 9.7 mg/dL (8.4-10.2); CARBON DIOXIDE 30 mmol/L (22-30); CHLORIDE 101 mmol/L (98-107); GLUCOSE 104 mg/dL (75-110); PHOSPHORUS 3.4 mg/dL (2.5-4.5); POTASSIUM 4.1 mmol/L (3.6-5.0)
[2017-11-29] MEDS: ENOXAPARIN SODIUM INJ 40 MG/0.4 ML DISP.SYRIN SUBCUT SCH (10:04)
[2017-11-29] MEDS: AMLODIPINE BESYLATE 10 MG TABLET PO SCH (10:04)
[2017-11-29] MEDS: OXYCODONE HCL IR 5 MG TABLET PO PRN ×2 (11:59→20:10)
[2017-11-29] MEDS ORDERED: ONDANSETRON HCL INJ/PF 4 MG/2 ML SDV IV PRN (13:30)
[2017-11-29] MEDS ORDERED: GABAPENTIN 100 MG CAPSULE PO SCH (14:00)
--- NOTE | 2017-11-29 16:32 | PDOC PROGRESS REPORT ---
Subjective Progress Note for:: 11/29/17 Subjective:: The patient is a 77-year-old gentleman with a past medical history of Hypertension GERD Postherpetic neuralgia in the right flank He presented to the hospital on November 26 with an episode of syncope. He was sitting in a chair about to take his medications when he passed out. He woke up on the floor and called EMS. The patient recently relocated from [place] and does not have a primary care physician yet. He is reported a recent h/o dysphagia to solids and a 20 lb weight loss. Barium swallow revealed mild GERD but no schatzki's ring or distal esophageal stricture. pain improved. Neurontin frequency increased. PT to re evaluate for possible rehab. Orthostatic hypotension improved with IV fluids. Reason For Visit: SYNCOPE Physical Exam Vital Signs: Temp Pulse Resp BP Pulse Ox 98.3 F 90 18 155/80 H 99 11/29/17 12:00 11/29/17 12:00 11/29/17 12:00 11/29/17 12:00 11/29/17 12:00 Intake & Output 11/28/17 11/29/17 11/30/17 06:59 06:59 06:59 Intake Total 1435 Output Total 1125 Balance 310 Weight 81.6 kg General appearance: PRESENT: no acute distress Head exam: PRESENT: atraumatic Eye exam: PRESENT: PERRLA Mouth exam: PRESENT: moist Neck exam: ABSENT: tracheal deviation Respiratory exam: PRESENT: symmetrical, unlabored Cardiovascular exam: PRESENT: RRR GI/Abdominal exam: PRESENT: normal bowel sounds, soft Extremities exam: ABSENT: pedal edema Neurological exam: PRESENT: alert, awake Psychiatric exam: PRESENT: appropriate affect Skin exam: PRESENT: other - Zoster rash R flank- no vesicles, improving Results Laboratory Results: 11/29/17 04:35 11/29/17 04:35 Sodium 142.0 Potassium 4.1 Chloride 101 Carbon Dioxide 30 Anion Gap 11 BUN 15 Creatinine 1.29 H Est GFR ( Amer) > 60 Est GFR (Non-Af Amer) 54 L Glucose 104 Calcium 9.7 Phosphorus 3.4 Magnesium 2.0 Impressions: Head CT 11/26/17 00:00 IMPRESSION: No acute intracranial changes. EVIDENCE OF ACUTE STROKE: NO. Mucosal thickening is noted left maxillary antrum. Chest X-Ray 11/26/17 15:16 IMPRESSION: NO ACUTE RADIOGRAPHIC FINDING IN THE CHEST. Abdomen/Pelvis CT 11/27/17 00:00 IMPRESSION: No definite acute findings. There is significant beam hardening- scatter artifact from the enteric contrast which limits evaluation through the abdomen. Upper GI Series 11/27/17 00:00 IMPRESSION: Mild gastroesophageal reflux to the distal 3rd of the esophagus. No Schatzki's ring or distal esophageal stricture. Partial organoaxial gastric volvulus, where the body of the stomach is more superior than the GE junction and pylorus. This partially obscures the gastric antrum. Carotid Doppler Study 11/28/17 00:00 IMPRESSION: NO HEMODYNAMICALLY SIGNIFICANT STENOSIS. Assessment & Plan - Diagnosis (1) Acute kidney failure Qualifiers: Acute renal failure type: with acute tubular necrosis Qualified Code(s): N17.0 - Acute kidney failure with tubular necrosis Is this a current diagnosis for this admission?: Yes Plan: IV fluids, monitor renal function (2) Dysphagia Qualifiers: Dysphagia type: unspecified Qualified Code(s): R13.10 - Dysphagia, unspecified Is this a current diagnosis for this admission?: Yes Plan: No complaints at present. Upper GI barium study unremarkable. Would benefit from EGD as outpatient (3) Essential hypertension Is this a current diagnosis for this admission?: Yes Plan: Amlodipine (4) GERD (gastroesophageal reflux disease) Qualifiers: Esophagitis presence: esophagitis presence not specified Qualified Code(s) : K21.9 - Gastro-esophageal reflux disease without esophagitis Is this a current diagnosis for this admission?: Yes Plan: PPI (5) Herpes zoster Is this a current diagnosis for this admission?: Yes Plan: pain control with Gabapentin. Oxycodone prn (6) Syncope Qualifiers: Syncope type: unspecified Qualified Code(s): R55 - Syncope and collapse Is this a current diagnosis for this admission?: Yes Plan: Suspected due to orthostatic hypotension which has improved with IV fluids. - Time Time Spent with patient: 25-34 minutes
[2017-11-29] MEDS: GABAPENTIN 300 MG CAPSULE PO SCH (22:36)
[2017-11-29] MEDS: TEMAZEPAM 15 MG CAPSULE PO PRN (22:36)
[2017-11-29] MEDS: ACETAMINOPHEN 325 MG TABLET PO PRN (22:36)
[2017-11-30] MEDS: OXYCODONE HCL IR 5 MG TABLET PO PRN ×3 (05:50→20:32)
[2017-11-30] MEDS: LANSOPRAZOLE 15 MG TAB.RAP.DR PO SCH ×2 (05:50→17:13)
[2017-11-30 06:31] LABS: ANION GAP 13 (5-19); BLOOD UREA NITROGEN 14 mg/dL (7-20); CALCIUM 9.5 mg/dL (8.4-10.2); CARBON DIOXIDE 28 mmol/L (22-30); CHLORIDE 102 mmol/L (98-107); GLUCOSE 110 mg/dL (75-110); PHOSPHORUS 2.7 mg/dL (2.5-4.5); POTASSIUM 4.2 mmol/L (3.6-5.0); SODIUM 142.6 mmol/L (137-145)
[2017-11-30] MEDS: AMLODIPINE BESYLATE 10 MG TABLET PO SCH (09:42)
[2017-11-30] MEDS: GABAPENTIN 100 MG CAPSULE PO SCH ×3 (09:43→17:13)
[2017-11-30] MEDS: ENOXAPARIN SODIUM INJ 40 MG/0.4 ML DISP.SYRIN SUBCUT SCH (09:43)
[2017-11-30] MEDS: ACETAMINOPHEN 325 MG TABLET PO PRN (14:17)
[2017-11-30] MEDS ORDERED: PROMETHAZINE HCL 6.25 MG/5 ML SYRUP 60 ML PO PRN (19:30)
--- NOTE | 2017-11-30 19:38 | PDOC PROGRESS REPORT ---
Subjective Progress Note for:: 11/30/17 Subjective:: Patient having continued epigastric pain. Also he feels constipated, is passing gas but has had no bowel movement. Mild nausea associated with epigastric pain. No bleeding. No vomitus. No fever or chills. No chest pain or difficulty breathing. Reason For Visit: SYNCOPE Physical Exam Vital Signs: Temp Pulse Resp BP Pulse Ox 98.4 F 70 16 140/69 H 100 11/30/17 15:44 11/30/17 15:44 11/30/17 15:44 11/30/17 15:44 11/30/17 15:44 Intake & Output 11/29/17 11/30/17 12/01/17 06:59 06:59 06:59 Intake Total 1435 1435 1320 Output Total 1125 1500 1200 Balance 310 -65 120 Weight 81.6 kg 81 kg General appearance: PRESENT: mild distress, well-developed, well-nourished Head exam: PRESENT: atraumatic, normocephalic Eye exam: PRESENT: EOMI. ABSENT: scleral icterus Ear exam: PRESENT: normal external ear exam Mouth exam: PRESENT: moist Respiratory exam: PRESENT: clear to auscultation karina, unlabored. ABSENT: rales , rhonchi, wheezes Cardiovascular exam: PRESENT: RRR. ABSENT: systolic murmur Pulses: PRESENT: normal radial pulses GI/Abdominal exam: PRESENT: normal bowel sounds, soft, tenderness. ABSENT: distended, firm, guarding Rectal exam: PRESENT: deferred Extremities exam: ABSENT: pedal edema Neurological exam: PRESENT: alert, awake, oriented to person, oriented to place , oriented to situation, CN II-XII grossly intact Psychiatric exam: PRESENT: appropriate affect. ABSENT: anxious Skin exam: PRESENT: dry, intact, warm Results Laboratory Results: 11/30/17 05:45 11/30/17 05:45 Sodium 142.6 Potassium 4.2 Chloride 102 Carbon Dioxide 28 Anion Gap 13 BUN 14 Creatinine 1.19 Est GFR ( Amer) > 60 Est GFR (Non-Af Amer) 59 L Glucose 110 Calcium 9.5 Phosphorus 2.7 Magnesium 2.0 Impressions: Head CT 11/26/17 00:00 IMPRESSION: No acute intracranial changes. EVIDENCE OF ACUTE STROKE: NO. Mucosal thickening is noted left maxillary antrum. Chest X-Ray 11/26/17 15:16 IMPRESSION: NO ACUTE RADIOGRAPHIC FINDING IN THE CHEST. Abdomen/Pelvis CT 11/27/17 00:00 IMPRESSION: No definite acute findings. There is significant beam hardening- scatter artifact from the enteric contrast which limits evaluation through the abdomen. Upper GI Series 11/27/17 00:00 IMPRESSION: Mild gastroesophageal reflux to the distal 3rd of the esophagus. No Schatzki's ring or distal esophageal stricture. Partial organoaxial gastric volvulus, where the body of the stomach is more superior than the GE junction and pylorus. This partially obscures the gastric antrum. Carotid Doppler Study 11/28/17 00:00 IMPRESSION: NO HEMODYNAMICALLY SIGNIFICANT STENOSIS. Assessment & Plan - Diagnosis (1) Epigastric pain Is this a current diagnosis for this admission?: Yes Plan: Patient has known GERD. He is on twice daily PPI. I wonder if he has evidence of Moran's or other esophagitis. I believe upper endoscopy is indicated. I will speak with GI in the morning. (2) Constipation Is this a current diagnosis for this admission?: Yes Plan: Have started senna twice daily and also will order Dulcolax suppository. (3) Dysphagia Qualifiers: Dysphagia type: unspecified Qualified Code(s): R13.10 - Dysphagia, unspecified Is this a current diagnosis for this admission?: Yes Plan: Patient has had difficulty with food getting stuck in his esophagus. Another indication for endoscopy. (4) GERD (gastroesophageal reflux disease) Qualifiers: Esophagitis presence: esophagitis presence not specified Qualified Code(s) : K21.9 - Gastro-esophageal reflux disease without esophagitis Is this a current diagnosis for this admission?: Yes Plan: Continue twice daily PPI for now (5) Herpes zoster Is this a current diagnosis for this admission?: Yes Plan: Patient is on gabapentin and has as needed oxycodone available. (6) Syncope Qualifiers: Syncope type: unspecified Qualified Code(s): R55 - Syncope and collapse Is this a current diagnosis for this admission?: Yes Plan: Mariano pain when he had an episode of syncope. So far the workup for avascular syncope is negative. CT head negative. Carotid imaging negative. Will consider further brain imaging and order echocardiogram - Time Time Spent with patient: 25-34 minutes Medications reviewed and adjusted accordingly: Yes - Inpatient Certification Based on my medical assessment, after consideration of the patient's comorbidities, presenting symptoms, or acuity I expect that the services needed warrant INPATIENT care.: Yes I certify that my determination is in accordance with my understanding of Medicare's requirements for reasonable and necessary INPATIENT services [42 CFR 412.3e].: Yes Medical Necessity: Significant Comorbidiites Make Outpatient Treatment Too Risky , Need Close Monitoring Due to Risk of Patient Decompensation, Risk of Complication if Not Cared For in Hospital
[2017-11-30] MEDS ORDERED: BISACODYL 10 MG SUPP.RECT PR ONE (20:00)
[2017-11-30] MEDS: GABAPENTIN 300 MG CAPSULE PO SCH (20:31)
[2017-11-30] MEDS: SENNOSIDES/DOCUSATE 8.6-50 MG 1 EACH TABLET PO SCH (20:32)
[2017-12-01] MEDS: OXYCODONE HCL IR 5 MG TABLET PO PRN ×3 (00:48→14:40)
[2017-12-01] MEDS: TEMAZEPAM 15 MG CAPSULE PO PRN ×2 (02:28→21:08)
[2017-12-01] MEDS: LANSOPRAZOLE 15 MG TAB.RAP.DR PO SCH ×2 (06:30→17:29)
[2017-12-01] MEDS: AMLODIPINE BESYLATE 10 MG TABLET PO SCH (09:24)
[2017-12-01] MEDS: ENOXAPARIN SODIUM INJ 40 MG/0.4 ML DISP.SYRIN SUBCUT SCH (09:25)
[2017-12-01] MEDS: GABAPENTIN 100 MG CAPSULE PO SCH ×3 (09:25→17:29)
[2017-12-01] MEDS: SENNOSIDES/DOCUSATE 8.6-50 MG 1 EACH TABLET PO SCH ×2 (09:25→21:08)
--- NOTE | 2017-12-01 15:52 | PDOC PROGRESS REPORT ---
Subjective Progress Note for:: 12/01/17 Subjective:: Feeling some better, had two watery stools. Right sided shingles lesions are getting some better, he thinks that pain is radiating into left side of abd causing some discomfort there. No chest pain or dyspnea, no fever or chills, no obvious blood. No nausea or vomiting today. No dysphagia or epigastric pain today. Reason For Visit: SYNCOPE Physical Exam Vital Signs: Temp Pulse Resp BP Pulse Ox 98.5 F 69 18 127/57 H 100 12/01/17 11:25 12/01/17 11:25 12/01/17 11:25 12/01/17 11:25 12/01/17 11:25 Intake & Output 11/30/17 12/01/17 12/02/17 06:59 06:59 06:59 Intake Total 1435 1740 Output Total 1500 1775 Balance -65 -35 Weight 81 kg 83.7 kg General appearance: PRESENT: no acute distress, cooperative Head exam: PRESENT: atraumatic, normocephalic Eye exam: ABSENT: scleral icterus Mouth exam: PRESENT: moist, neck supple, tongue midline Respiratory exam: PRESENT: clear to auscultation karina, unlabored. ABSENT: rales , rhonchi, wheezes Cardiovascular exam: PRESENT: RRR. ABSENT: systolic murmur Pulses: PRESENT: normal radial pulses GI/Abdominal exam: PRESENT: normal bowel sounds, soft. ABSENT: distended, firm , guarding, tenderness Rectal exam: PRESENT: deferred Extremities exam: ABSENT: pedal edema Musculoskeletal exam: PRESENT: ambulatory Neurological exam: PRESENT: alert, awake, oriented to person, oriented to place , oriented to situation, CN II-XII grossly intact. ABSENT: aphasic Psychiatric exam: PRESENT: appropriate affect. ABSENT: anxious Skin exam: PRESENT: dry, rash - Healing shingles lesions at about T10 distribution, warm Results Laboratory Results: 11/30/17 05:45 Impressions: Head CT 11/26/17 00:00 IMPRESSION: No acute intracranial changes. EVIDENCE OF ACUTE STROKE: NO. Mucosal thickening is noted left maxillary antrum. Chest X-Ray 11/26/17 15:16 IMPRESSION: NO ACUTE RADIOGRAPHIC FINDING IN THE CHEST. Abdomen/Pelvis CT 11/27/17 00:00 IMPRESSION: No definite acute findings. There is significant beam hardening- scatter artifact from the enteric contrast which limits evaluation through the abdomen. Upper GI Series 11/27/17 00:00 IMPRESSION: Mild gastroesophageal reflux to the distal 3rd of the esophagus. No Schatzki's ring or distal esophageal stricture. Partial organoaxial gastric volvulus, where the body of the stomach is more superior than the GE junction and pylorus. This partially obscures the gastric antrum. Carotid Doppler Study 11/28/17 00:00 IMPRESSION: NO HEMODYNAMICALLY SIGNIFICANT STENOSIS. Assessment & Plan - Diagnosis (1) Epigastric pain Is this a current diagnosis for this admission?: Yes Plan: None today. Continue twice daily PPI. With this and history of dysphasia for solids will speak with GI about upper endoscopy, probably can defer to outpatient setting. (2) Constipation Is this a current diagnosis for this admission?: Yes Plan: Unclear whether this is true. Patient stated he felt constipated but today had 2 watery stools so this could be a postobstructive diarrhea. Large amount of stool was not reported on the CT scan. At this point we will check stool for C. difficile, blood and bacterial infection. 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 I have increased the daily gabapentin to 200 p.o. 3 times daily, will continue at bedtime dosing. Patient has as needed oxycodone available also. He is taking this very sparingly. (6) Syncope Qualifiers: Syncope type: unspecified Qualified Code(s): R55 - Syncope and collapse Is this a current diagnosis for this admission?: Yes Plan: We will complete workup with MRI and echocardiogram. No further syncopal episodes during the hospitalization. - Time Time Spent with patient: 25-34 minutes Medications reviewed and adjusted accordingly: Yes - Inpatient Certification Based on my medical assessment, after consideration of the patient's comorbidities, presenting symptoms, or acuity I expect that the services needed warrant INPATIENT care.: Yes I certify that my determination is in accordance with my understanding of Medicare's requirements for reasonable and necessary INPATIENT services [42 CFR 412.3e].: Yes Medical Necessity: Need Close Monitoring Due to Risk of Patient Decompensation, Risk of Complication if Not Cared For in Hospital
[2017-12-01] MEDS: GABAPENTIN 300 MG CAPSULE PO SCH (21:08)
[2017-12-02] MEDS: LANSOPRAZOLE 15 MG TAB.RAP.DR PO SCH ×2 (03:51→17:18)
[2017-12-02] MEDS: OXYCODONE HCL IR 5 MG TABLET PO PRN ×3 (03:51→17:19)
--- NOTE | 2017-12-02 08:24 | RADIOLOGY REPORT (SQ) ---
EXAM DESCRIPTION: MRI HEAD WITHOUT COMPLETED DATE/TIME: 12/01/2017 6:31 pm REASON FOR STUDY: stroke eval R10.10 UPPER ABDOMINAL PAIN, UNSPECIFIED COMPARISON: CT dated 11/26/2017. TECHNIQUE: Multiplanar imaging includes non-contrasted T1, T2, FLAIR, and diffusion with ADC map seq uences. Images stored on PACS. LIMITATIONS: None. FINDINGS: ANATOMY: No anomalies. Normal vascular flow voids. Pituitary fossa normal. CSF SPACES: Normal in size and contour. No hemorrhage. CEREBRUM: Sulci and gyri normal in size and contour. Normal white matter signal on FLAIR imaging. No evidence of hemorrhage, mass, or extraaxial fluid collection. POSTERIOR FOSSA: No signal alteration. No hemorrhage. No edema, masses or mass effect. Internal jah tory canals, cerebello-pontine angles, mastoids normal. DIFFUSION IMAGING: Negative for acute or sub-acute infarction. ORBITS: No masses. Globes normal. PARANASAL SINUSES: No fluid levels. Mucous membrane thickening in the left maxillary sinus. OTHER: No other significant finding. IMPRESSION: NORMAL MRI OF THE BRAIN WITHOUT INTRAVENOUS GADOLINIUM CONTRAST. EVIDENCE OF ACUTE STROKE: NO. TECHNICAL DOCUMENTATION: JOB ID: [id number] [employer]- All Rights Reserved Reading location - IP/workstation name: [email or web address]
[2017-12-02] MEDS: AMLODIPINE BESYLATE 10 MG TABLET PO SCH (09:16)
[2017-12-02] MEDS: GABAPENTIN 100 MG CAPSULE PO SCH ×3 (09:16→17:18)
[2017-12-02] MEDS: SENNOSIDES/DOCUSATE 8.6-50 MG 1 EACH TABLET PO SCH (09:16)
[2017-12-02] MEDS: ENOXAPARIN SODIUM INJ 40 MG/0.4 ML DISP.SYRIN SUBCUT SCH (09:17)
[2017-12-02] MEDS ORDERED: SENNOSIDES/DOCUSATE 8.6-50 MG 1 EACH TABLET PO ONE ×2 (09:34→11:15)
--- NOTE | 2017-12-02 10:33 | RADIOLOGY REPORT (SQ) ---
EXAM DESCRIPTION: KUB/ABDOMEN (SINGLE VIEW) COMPLETED DATE/TIME: 12/02/2017 10:14 am REASON FOR STUDY: abdominal pain R10.10 UPPER ABDOMINAL PAIN, UNSPECIFIED COMPARISON: None. NUMBER OF VIEWS: One view. TECHNIQUE: Supine radiographic image of the abdomen acquired. LIMITATIONS: None. FINDINGS: BOWEL GAS PATTERN: Normal bowel gas pattern contrast throughout the colon. No dilated loop s. CALCIFICATIONS: No suspicious calcifications. SOFT TISSUES: No gross mass or suggestion of organomegaly. HARDWARE: None in the abdomen. BONES: No acute fracture. No worrisome bone lesions. OTHER: No other significant finding. IMPRESSION: CONTRAST THROUGHOUT THE COLON. NO RADIOGRAPHIC EVIDENCE FOR ACUTE ABDOMINAL DISEASE. TECHNICAL DOCUMENTATION: JOB ID: [id number] [employer]- All Rights Reserved Reading location - IP/workstation name: [email or web address]
--- NOTE | 2017-12-02 18:35 | PDOC PROGRESS REPORT ---
Subjective Progress Note for:: 12/02/17 Subjective:: Patient's shingles pain improving. He continues to have left lower quadrant pain and feels that he is constipated. He feels that his 2 episodes of loose stool yesterday happened despite constipation. His abdomen is soft nondistended without point tenderness. No epigastric pain today. No nausea or vomiting any fevers or chills. No weakness or syncope. Reason For Visit: SYNCOPE Physical Exam Vital Signs: Temp Pulse Resp BP Pulse Ox 98.5 F 79 14 141/85 H 98 12/02/17 16:00 12/02/17 16:00 12/02/17 16:00 12/02/17 16:00 12/02/17 16:00 Intake & Output 12/01/17 12/02/17 12/03/17 06:59 06:59 06:59 Intake Total 1740 1003 822 Output Total 1775 1250 500 Balance -35 -247 322 Weight 83.7 kg 84.6 kg General appearance: PRESENT: no acute distress, cooperative Head exam: PRESENT: atraumatic, normocephalic Eye exam: PRESENT: EOMI. ABSENT: scleral icterus Mouth exam: PRESENT: moist, neck supple Respiratory exam: PRESENT: clear to auscultation karina, unlabored. ABSENT: rales , rhonchi, wheezes Cardiovascular exam: PRESENT: RRR. ABSENT: systolic murmur Pulses: PRESENT: normal radial pulses GI/Abdominal exam: PRESENT: normal bowel sounds, soft. ABSENT: distended, firm , guarding, tenderness Rectal exam: ABSENT: heme (+) stool Neurological exam: PRESENT: alert, awake, oriented to person, oriented to place , oriented to situation, CN II-XII grossly intact Psychiatric exam: PRESENT: anxious Skin exam: PRESENT: dry, warm Results Laboratory Results: 11/30/17 05:45 12/02/17 14:16 Stool Occult Blood NEGATIVE Impressions: Head CT 11/26/17 00:00 IMPRESSION: No acute intracranial changes. EVIDENCE OF ACUTE STROKE: NO. Mucosal thickening is noted left maxillary antrum. Chest X-Ray 11/26/17 15:16 IMPRESSION: NO ACUTE RADIOGRAPHIC FINDING IN THE CHEST. Abdomen/Pelvis CT 11/27/17 00:00 IMPRESSION: No definite acute findings. There is significant beam hardening- scatter artifact from the enteric contrast which limits evaluation through the abdomen. Upper GI Series 11/27/17 00:00 IMPRESSION: Mild gastroesophageal reflux to the distal 3rd of the esophagus. No Schatzki's ring or distal esophageal stricture. Partial organoaxial gastric volvulus, where the body of the stomach is more superior than the GE junction and pylorus. This partially obscures the gastric antrum. Carotid Doppler Study 11/28/17 00:00 IMPRESSION: NO HEMODYNAMICALLY SIGNIFICANT STENOSIS. Head MRI 12/01/17 00:00 IMPRESSION: NORMAL MRI OF THE BRAIN WITHOUT INTRAVENOUS GADOLINIUM CONTRAST. EVIDENCE OF ACUTE STROKE: NO. KUB X-Ray 12/02/17 00:00 IMPRESSION: CONTRAST THROUGHOUT THE COLON. NO RADIOGRAPHIC EVIDENCE FOR ACUTE ABDOMINAL DISEASE. Assessment & Plan - Diagnosis (1) Epigastric pain Is this a current diagnosis for this admission?: Yes Plan: This appears resolved. Continue PPI. Given patient's reported history of dysphagia to solids and also some findings on his upper GI series including partial gastric volvulus and esophageal complications related to GERD outpatient EGD is indicated. (2) Constipation Is this a current diagnosis for this admission?: Yes Plan: Patient takes 5 senna tabs every day to stool normally and avoid constipation. We will administer 5 senna tabs today and see how he does. (3) Dysphagia Qualifiers: Dysphagia type: unspecified Qualified Code(s): R13.10 - Dysphagia, unspecified Is this a current diagnosis for this admission?: Yes Plan: None today. Continue to monitor. Outpatient EGD indicated. (4) GERD (gastroesophageal reflux disease) Qualifiers: Esophagitis presence: esophagitis presence not specified Qualified Code(s) : K21.9 - Gastro-esophageal reflux disease without esophagitis Is this a current diagnosis for this admission?: Yes Plan: Continue PPI. Refer to outpatient GI. (5) Herpes zoster Is this a current diagnosis for this admission?: Yes Plan: Continue gabapentin and as needed oxycodone. (6) Syncope Qualifiers: Syncope type: unspecified Qualified Code(s): R55 - Syncope and collapse Is this a current diagnosis for this admission?: Yes Plan: No further episodes. MRI of the brain negative. Echocardiogram pending. - Time Time Spent with patient: 35 or more minutes Medications reviewed and adjusted accordingly: Yes - Inpatient Certification Based on my medical assessment, after consideration of the patient's comorbidities, presenting symptoms, or acuity I expect that the services needed warrant INPATIENT care.: Yes Medical Necessity: Need Close Monitoring Due to Risk of Patient Decompensation, Risk of Complication if Not Cared For in Hospital
[2017-12-02] MEDS: GABAPENTIN 300 MG CAPSULE PO SCH (21:15)
[2017-12-03] MEDS: TEMAZEPAM 15 MG CAPSULE PO PRN (00:13)
[2017-12-03] MEDS: OXYCODONE HCL IR 5 MG TABLET PO PRN ×3 (00:13→10:03)
[2017-12-03] MEDS: LANSOPRAZOLE 15 MG TAB.RAP.DR PO SCH (05:56)
[2017-12-03 08:02] VITALS: BP 134/78
[2017-12-03] MEDS: AMLODIPINE BESYLATE 10 MG TABLET PO SCH (10:03)
[2017-12-03] MEDS: GABAPENTIN 100 MG CAPSULE PO SCH (10:04)
[2017-12-03] MEDS: ENOXAPARIN SODIUM INJ 40 MG/0.4 ML DISP.SYRIN SUBCUT SCH (10:10)
--- NOTE | 2017-12-03 17:36 | XCELERA REPORT ---
[address] [address] Transthoracic Echocardiogram Report Name: CANDIDO WHITFIELD JR Age: 77 yrs Gender: Male : 1940 Patient Status: Inpatient Patient Location: [address] [place] [address] Study Date: 12/03/2017 09:38 AM Height: 66 in Weight: 184 lb BSA: 1.9 m2 Procedure: A two-dimensional transthoracic echocardiogram with color flow and Doppler was performed. The study was technically limited with all images being suboptimal in quality. Reason For Study: STROKE (CVA) History: STROKE (CVA). Ordering Physician: BAKARI TEJEDA Performed By: Yesi Zamorano Interpretation Summary There is no obvious cardiac source of embolus noted on this transthoracic echocardiogram. Follow-up with a JOSE is suggested if cardiac source is still suspected. The left ventricle is normal in size. There is normal left ventricular wall thickness. LV EF is > than 65% Left ventricular systolic function is normal. Doppler measurements suggest impaired left ventricular relaxation, which is associated with grade I/IV or mild diastolic dysfunction The left ventricular wall motion is normal. The right ventricle is grossly normal size. The right ventricle is not well visualized secondary to technical limitations The left atrial size is normal. There is no evidence of mitral valve prolapse. There is no vegetation seen on the mitral valve. There is no mitral valve stenosis. There is a trace amount of mitral regurgitation There is no aortic valve stenosis There is no LVOT obstruction. No aortic regurgitation is present. There is no tricuspid stenosis. There is a trace amount of tricuspid regurgitation Right ventricular systolic pressure is normal. RVSP is 28 mm of Hg , with RA mean of 5. There is no pericardial effusion. There is no obvious cardiac source of embolus noted on this transthoracic echocardiogram. Follow-up with a JOSE is suggested if cardiac source is still suspected MMode/2D Measurements & Calculations RVDd: 2.5 cm LVIDd: 3.5 cm FS: 33.7 % Ao root diam: 2.4 cm IVSd: 0.96 cm LVIDs: 2.3 cm EDV(Teich): 50.5 ml LVPWd: 0.99 cm ESV(Teich): 18.4 ml Ao root area: 4.5 cm2 EF(Teich): 63.6 % LA dimension: 3.0 cm Doppler Measurements & Calculations MV E max carrie: MV P1/2t max carrie: Ao V2 max: LV V1 max P.7 cm/sec 66.1 cm/sec 127.3 cm/sec 4.0 mmHg MV A max carrie: MV P1/2t: 82.5 msec Ao max PG: LV V1 max: 90.8 cm/sec 6.5 mmHg 100.2 cm/sec MV E/A: 0.70 MVA(P1/2t): 2.7 cm2 MV dec slope: 234.9 cm/sec2 MV dec time: 0.27 sec PA V2 max: PI end-d carrie: TR max carrie: 92.8 cm/sec 115.4 cm/sec 241.4 cm/sec PA max PG: TR max P.4 mmHg 23.3 mmHg Left Ventricle The left ventricle is normal in size. There is normal left ventricular wall thickness. LV EF is > than 65%. Left ventricular systolic function is normal. Doppler measurements suggest impaired left ventricular relaxation, which is associated with grade I/IV or mild diastolic dysfunction. The left ventricular wall motion is normal. There is no thrombus. Right Ventricle The right ventricle is grossly normal size. The right ventricle is not well visualized secondary to technical limitations. Atria The right atrium is normal. The left atrial size is normal. Mitral Valve There is mild to moderate mitral annular calcification. There is no evidence of mitral valve prolapse. There is no vegetation seen on the mitral valve. There is no mitral valve stenosis. There is a trace amount of mitral regurgitation. Aortic Valve There is no aortic valvular vegetation. There is no aortic valve stenosis. There is no LVOT obstruction. No aortic regurgitation is present. Tricuspid Valve There is no tricuspid stenosis. There is a trace amount of tricuspid regurgitation. Right ventricular systolic pressure is normal. RVSP is 28 mm of Hg , with RA mean of 5. Pulmonic Valve There is no pulmonic valvular stenosis. There is a trace amount of pulmonic regurgitation. Great Vessels The aortic root is normal size. Effusions There is no pericardial effusion. : BAKARI TEJEDA > Haydee Caicedo
--- NOTE | 2017-12-03 21:45 | DISCHARGE SUMMARY E ---
Discharge Summary NAME: CANDIDO WHITFIELD : 1940 AGE: 77Y ADMITTED: 11/28/2017 DISCHARGED: 12/03/2017 CODE STATUS: FULL CODE. PRIMARY CARE PROVIDER: Lainey Plata PA-C DISCHARGE DIAGNOSES: Includes: 1. Possible gastric volvulus and esophageal complications resulting in epigastric pain. 2. Constipation. 3. Dysphagia secondary to number 1 which appears to be intermittent. 4. Gastroesophageal reflux disease. 5. Shingles. 6. Syncope secondary to dehydration. 7. Hypertension. DISCHARGE MEDICATIONS: Include: 1. Norvasc 10 mg p.o. daily. 2. Neurontin 200 mg p.o. t.i.d. 90 capsules with 0 refills. 3. Neurontin 300 mg p.o. q. hour of sleep 30 capsules with 0 refills. 4. Chambers 5/325 one tablet p.o. q. 6 hours p.r.n. 5. Prilosec 20 mg p.o. q. 12 hours. DIET: GI soft as tolerated. ACTIVITY: As tolerated. CONDITION: Good. DIAGNOSTICS: Lab values are as follows: Hematology obtained on 11/26/2017: WBCs are 4.6; hemoglobin 30.5; hematocrit 39.9; platelet count is 288,000. Chemistry obtained on 11/30/2017: Sodium is 142, potassium 4.2, chloride is 102, carbon dioxide 28, BUN 14, creatinine 1.19, glucose 110, calcium is 9.5, phosphorus 2.7, magnesium 2.0, bilirubin is 0.7, AST 31, ALT is 30, alk phos 59. Troponin is 0.014. Total protein 7.8, albumin 4.3. Urinalysis obtained on 11/26/2017: Color yellow, appearance slightly cloudy. PH is 5, specific gravity is 1.015. Protein negative, glucose negative, ketones 28, occult blood negative, nitrate negative, bilirubin negative, urobilinogen is negative, leukocyte esterase is small, WBCs are 9, RBCs 2, casts 9, epithelial squamous cells 1, mucus few, ascorbic acid is negative. *------* obtained on 12/02/2017. Stool for occult blood is negative. Serology obtained on 12/02/2017. C. diff. toxin is negative. Microbiology: Stool culture obtained on 12/02/[address] obtained on 11/26/2017 reveals no acute intracranial findings. Chest x-ray obtained on 11/26/2017 reveals no acute radiographic finding of the chest. CT of the abdomen and pelvis obtained on 11/27/2017 reveals no definite acute findings. Upper GI series obtained on 11/27/2017 reveals mild gastroesophageal reflux to the distal third of the esophagus. No Schatzki's ring or distal esophageal stricture. Partial organoaxial gastric volvulus where the body of the stomach is more superior than the GE junction and pylorus. Carotid Doppler obtained on 11/28/2017 reveals no hemodialysis significant stenosis. Head MRI obtained on 12/01/2017 reveals normal MRI of the brain without contrast. KUB obtained on 12/02/2017 reveals contrast throughout the colon. No radiographic evidence of acute abdominal disease. PHYSICAL EXAMINATION: GENERAL: On examination, the patient is a well-developed, well-nourished 77-year-old male who is awake, alert, and oriented to person, place, time, and situation. He is verbal, conversational, does not appear to be in distress. VITAL SIGNS: Temperature is 98.5, pulse 82, respirations 18, blood pressure is 134/78, oxygen saturation 97% on room air. SKIN: Warm and dry. No rash. Not diaphoretic. HEENT: Pupils equal, round, and reactive to light and accommodation. Conjunctiva is pink. No evidence of JVP. CARDIOVASCULAR SYSTEM: Heart is regular. There is no murmur or rub. CHEST: Clear, symmetrical, unlabored. ABDOMEN: Soft, nontender, nondistended. BACK: No CVA tenderness or sacral edema. EXTREMITIES: No clubbing, cyanosis, edema. PSYCHIATRIC: The patient does have an odd affect. HISTORY OF PRESENT ILLNESS: The patient is a 77-year-old -[place] male with a past medical history of recent diagnosis of shingles and hypertension. The patient presented to the Emergency Department after sustaining a syncopal episode. According to the patient, he was sitting in his chair and was ready to take his meds for hypertension when he passed out. The patient stated he was awakened on the floor and had the phone next to him and he called 9--. The patient stated he had recently relocated to this area from [place] and had not established primary care provider although he does have a name to call for an appointment. The patient stated that he does have relatives that live in the area and they visit him often. The patient stated for the past 2 months, he has had difficulty swallowing food. He just feels sometimes food gets stuck. He describes drinking hot water sometimes to push them down. The patient started pureeing all of his foods in the past month and reports losing about 20 pounds over the past 2 months. The patient had labs that were reflective of dehydration. The patient was referred to the hospitalist for admission and management. HOSPITAL COURSE: The patient was admitted to continuous telemetry unit. The patient did have MRI and carotid Dopplers, all of which were unremarkable. The patient did have a CT of the abdomen and his head, also unremarkable. The patient did have a GI series that was suggestive of a gastric volvulus and the patient is agreeable to outpatient followup for this. The patient was hydrated and the patient had no further replication of symptoms. The patient was able to tolerate a diet of GI soft, especially with toast, and feels absolutely ready for discharge. Dr. Sawant discussed the case with Dr. Witt who has agreed to see the patient in his office and this referral has already been made earlier in the week. DISCHARGE PLANNIN. The patient has already been referred to Dr. Witt for outpatient workup. 2. The patient is to follow with primary care provider within 1-2 weeks for hospital followup. TIME SPENT: On this discharge including assessment, plan, physical examination, patient education, review of records is 25 minutes. DICTATING PHYSICIAN: DAMIAN PÉREZ [id number] Y#: [id number] ID: [id number] JOB#: [id number] ACCT: [id number] cc:ANANT SILVA M.D. >
== END 2017-12-03 12:06 | disposition home or self-care (01) | DRG 682 ==
LOC: ER 14:35 → INTOOBSV 17:02 → EH 17:02 → 4W 23:00 → OBSVTOIN 11-28 13:54 → 4N 11-30 17:25
PROVIDERS: ADMIT Internal Medicine; ATTEND Internal Medicine
DX: N17.0 Acute kidney failure with tubular necrosis (principal); K56.2 Volvulus; B02.29 Other postherpetic nervous system involvement; E86.0 Dehydration; K59.00 Constipation, unspecified; I10 Essential (primary) hypertension; R13.10 Dysphagia, unspecified; N40.0 Benign prostatic hyperplasia without lower urinary tract symptoms; K21.9 Gastro-esophageal reflux disease without esophagitis; Z79.899 Other long term (current) drug therapy; Z82.49 Family history of ischemic heart disease and other diseases of the circulatory system; Z87.442 Personal history of urinary calculi; Z91.81 History of falling
CPT/HCPCS: 36415; 70450; 70551; 71045; 74018; 74176; 74247; 80048; 80053; 81001; 82272; 83735; 84100; 84484; 85025; 87045; 87205; 87493; 93005; 93010; 93306; 93880; 99285; G0378; J1170; J1650; J3490; J7030

== ENCOUNTER 2018-02-04 08:35 | Day surgery (SDC) | payer MEDICARE, OTHER ==
[~2018-02-04 08:35] MED LIST: PROPOFOL INJ 200 MG/20 ML VIAL IV ONE
[2018-02-04 10:29] VITALS: BP 114/59
--- NOTE | 2018-02-04 10:50 | Operative Report ---
Operative Report DATE OF SURGERY: 02/04/18 Operative Report: The risks, benefits and alternatives of the procedure including risks of bleeding, perforation requiring surgery are explained to the patient in detail and informed consent is obtained. The patient is brought back to the endoscopy suite and placed in the left, lateral decubital position. Timeout was called. Propofol medication is administered. A rectal examination is done which did not reveal any masses, tears or fissures. An Olympus videoscope was inserted the patient's rectum. The scope was then carefully advanced all the way to the cecum. The cecum was identified by the usual anatomical landmarks including the ileocecal valve as well as the appendiceal office. Photodocumentation is obtained. The scope was then sequentially pulled back via the various segments of the colon including the ascending colon, hepatic flexure, transverse colon, splenic flexure, descending colon and finally into the rectosigmoid portions of the colon. Retroflexion maneuvers performed. The risks benefits and alternatives of the procedure explained to the patient in detail and informed consent is obtained.A GIF Olympus video scope was inserted into the patient's mouth and hypopharynx, the esophagus is identified intubated and insufflated ,the scope was then advanced through the esophagus stomach and duodenum ,retroflexion maneuver is done ,the esophagus stomach and first and second portions of the duodenum examined PREOPERATIVE DIAGNOSIS: Colorectal cancer screening. Dysphagia POSTOPERATIVE DIAGNOSIS: Right side colonic inflammation, status post biopsy. Colon polyp at the splenic flexure area removed via snare polypectomy. Internal hemorrhoids. Gastritis status post biopsy rule out Helicobacter pylori. Schatzki's ring which is broken. Questionable paraesophageal hernia OPERATION: Colonoscopy with snare polypectomy. Colonoscopy with biopsy. EGD with biopsy SURGEON: FAUZIA LEYVA ANESTHESIA: LMAC TISSUE REMOVED OR ALTERED: As noted above. COMPLICATIONS: None. ESTIMATED BLOOD LOSS: None. INTRAOPERATIVE FINDINGS: As noted above. PROCEDURE: Patient tolerated the procedure well. No immediate postprocedure complications are noted. Patient discharged in good condition. Discharge date 02/04/2018. Discharge diet: Regular. Discharge activity: Regular. 2-3 week follow-up to discuss findings. Patient is instructed to call the office or proceed to the emergency room should there be any further problems or questions. 3-5 year surveillance colonoscopy.
== END 2018-02-04 10:20 | disposition home or self-care (01) ==
LOC: END 08:35
PROVIDERS: ATTEND Internal Medicine Gastroenterology
DX: K52.9 Noninfective gastroenteritis and colitis, unspecified (principal); K29.50 Unspecified chronic gastritis without bleeding; D12.6 Benign neoplasm of colon, unspecified; K64.8 Other hemorrhoids; K22.2 Esophageal obstruction; E78.5 Hyperlipidemia, unspecified; I12.9 Hypertensive chronic kidney disease with stage 1 through stage 4 chronic kidney disease, or unspecified chronic kidney disease; N18.2 Chronic kidney disease, stage 2 (mild); Z79.899 Other long term (current) drug therapy
CPT/HCPCS: 43239; 45380; 45385; 88342 ×2; 88305 ×2; J2704; 813

== ENCOUNTER 2018-02-22 13:03 | Inpatient (IN) | payer MEDICARE ==
[2018-02-22] MEDS ORDERED: ASPIRIN 325 MG TABLET PO ONE (13:21)
--- NOTE | 2018-02-22 13:23 | ER Document Report ---
ED Medical Screen (RME) - General Chief Complaint: General Weakness Stated Complaint: WEAKNESS Time Seen by Provider: 02/22/18 13:21 Mode of Arrival: Wheelchair Information source: Patient, Relative TRAVEL OUTSIDE OF THE [place] IN LAST 30 DAYS: No - HPI Patient complains to provider of: weakness/cp Onset: This morning - pt with onset of weakness and cp starting early this am - Related Data Allergies/Adverse Reactions: No Known Allergies Allergy (Verified 11/15/17 16:50) Past Medical History - Past Medical History Cardiac Medical History: Reports: Hx Hypertension Denies: Hx Coronary Artery Disease Pulmonary Medical History: Denies: Hx Asthma, Hx Bronchitis, Hx COPD, Hx Pneumonia Neurological Medical History: Denies: Hx Cerebrovascular Accident, Hx Seizures Renal/ Medical History: Reports: Hx Benign Prostatic Hyperplasia, Hx Kidney Stones. Denies: Hx Peritoneal Dialysis GI Medical History: Reports: Hx Gastroesophageal Reflux Disease Musculoskeltal Medical History: Denies Hx Arthritis Past Surgical History: Reports: Hx Vascular Surgery - Left carotid artery endarterectomuy - Immunizations Hx Diphtheria, Pertussis, Tetanus Vaccination: Yes Physical Exam - Vital signs Vitals: Temp Pulse Resp BP Pulse Ox 98.0 F 100 14 124/72 96 02/22/18 13:11 02/22/18 13:11 02/22/18 13:11 02/22/18 13:11 02/22/18 13:11 Course - Vital Signs Vital signs: Temp Pulse Resp BP Pulse Ox 98.0 F 100 14 124/72 96 02/22/18 13:11 02/22/18 13:11 02/22/18 13:11 02/22/18 13:11 02/22/18 13:11
[2018-02-22 14:24] LABS: HEMOGLOBIN 12.9 g/dL (13.5-17.0); MEAN CORPUSCULAR HEMOGLOBIN 31.9 pg (27.0-33.4); MEAN CORPUSCULAR HGB CONC 33.9 g/dL (32.0-36.0); MEAN CORPUSCULAR VOLUME 94 fl (80-97); PLATELET COUNT 334 10^3/uL (150-450); RED BLOOD COUNT 4.03 10^6/uL (4.35-5.55); RED CELL DISTRIBUTION WIDTH 13.7 % (11.5-14.0); WHITE BLOOD COUNT 3.9 10^3/uL (4.0-10.5)
--- NOTE | 2018-02-22 14:25 | ER Document Report ---
ED Dizziness/Weakness - General Chief Complaint: General Weakness Stated Complaint: WEAKNESS Time Seen by Provider: 02/22/18 13:21 Mode of Arrival: Wheelchair Information source: Patient, Relative TRAVEL OUTSIDE OF THE [place] IN LAST 30 DAYS: No - HPI Patient complains to provider of: Weakness Onset: Yesterday Onset/Duration: Gradual Quality of pain: Dull Severity: Mild Context: denies: Chronic dizziness, Trauma, Vertigo Associated symptoms: Chest pain, Lightheaded, Loss of strength, Short of breath. denies: Nausea, Recent trauma, Sweating, Vomiting Exacerbated by: denies: Change in position - STANDING, ATTEMPTING TO WALK Baseline gait: Walks w/o assistance - Related Data Allergies/Adverse Reactions: No Known Allergies Allergy (Verified 11/15/17 16:50) Past Medical History - General Information source: Patient, Relative - Social History Smoking Status: Former Smoker Cigarette use (# per day): No Chew tobacco use (# tins/day): No Frequency of alcohol use: None Drug Abuse: None Family History: Hypertension Patient has suicidal ideation: No Patient has homicidal ideation: No - Past Medical History Cardiac Medical History: Reports: Hx Hypertension Denies: Hx Coronary Artery Disease Pulmonary Medical History: Denies: Hx Asthma, Hx Bronchitis, Hx COPD, Hx Pneumonia Neurological Medical History: Denies: Hx Cerebrovascular Accident, Hx Seizures Endocrine Medical History: Reports: None Renal/ Medical History: Reports: Hx Benign Prostatic Hyperplasia, Hx Kidney Stones. Denies: Hx Peritoneal Dialysis Malignancy Medical History: Reports Hx Skin Cancer GI Medical History: Reports: Hx Gastroesophageal Reflux Disease Musculoskeletal Medical History: Denies Hx Arthritis Psychiatric Medical History: Reports: None Infectious Medical History: Reports: Other - SHINGLES, POST-HERPETIC NEURALGIA Past Surgical History: Reports: Other - SKIN CANCER ON NECK REMOVED - Immunizations Hx Diphtheria, Pertussis, Tetanus Vaccination: Yes Review of Systems - Review of Systems Constitutional: See HPI EENT: No symptoms reported Cardiovascular: See HPI Respiratory: See HPI Gastrointestinal: No symptoms reported Genitourinary: No symptoms reported Musculoskeletal: No symptoms reported Skin: No symptoms reported Neurological/Psychological: See HPI Physical Exam - Vital signs Vitals: Temp Pulse Resp BP Pulse Ox 98.0 F 100 14 124/72 96 02/22/18 13:11 02/22/18 13:11 02/22/18 13:11 02/22/18 13:11 02/22/18 13:11 Interpretation: Tachycardic. No: Hypotensive, Tachypneic, Febrile - General General appearance: Appears well, Alert In distress: None - HEENT Head: Normocephalic Eyes: Normal Conjunctiva: Normal Ears: Normal Nasal: Normal Mouth/Lips: Normal Mucous membranes: Normal - Respiratory Respiratory status: No respiratory distress Breath sounds: Normal - Cardiovascular Rhythm: Regular Heart sounds: Normal auscultation Murmur: No - Abdominal Inspection: Normal Distension: No distension Bowel sounds: Normal - Extremities General upper extremity: Normal inspection General lower extremity: Normal inspection - Neurological Neuro grossly intact: Yes Cognition: Normal Orientation: AAOx4 - Psychological Associated symptoms: Normal affect, Normal mood - Skin Skin Temperature: Warm Skin Moisture: Dry Skin Color: Normal Skin Turgor: Elastic Course - Vital Signs Vital signs: Temp Pulse Resp BP Pulse Ox 98.0 F 100 13 150/81 H 96 02/22/18 13:11 02/22/18 13:11 02/22/18 15:12 02/22/18 15:12 02/22/18 15:12 - Laboratory Result Diagrams: 02/22/18 14:09 02/22/18 14:09 Laboratory results interpreted by me: 02/22/18 02/22/18 02/22/18 14:09 14:09 14:09 WBC 3.9 L RBC 4.03 L Hgb 12.9 L Seg Neuts % (Manual) 41 L Monocytes % (Manual) 14 H Abs Neuts (Manual) 1.6 L D-Dimer 0.90 H Potassium 5.4 H BUN 30 H Creatinine 1.97 H Est GFR ( Amer) 40 L Est GFR (Non-Af Amer) 33 L - Diagnostic Test Radiology reviewed: Image reviewed, Reports reviewed - EKG Interpretation by Me EKG shows normal: Sinus rhythm, [place], Intervals, QRS Complexes. abnormal: ST-T Waves - BORDERLINE FLAT T WAVES, NS Rate: Normal Rhythm: NSR P Waves: LAE - Consults DR. Nicanor GARCIA Time consulted: 17:08 Consulted provider: will come to ER Discharge - Discharge Clinical Impression: Dehydration, Hyperkalemia Acute kidney failure Qualifiers: Acute renal failure type: unspecified Qualified Code(s): N17.9 - Acute kidney failure, unspecified Condition: Good Disposition: ADMITTED OBSERVATION Admitting Provider: Hospitalist Unit Admitted: Medical Floor
[2018-02-22 14:50] LABS: ALANINE AMINOTRANSFERASE 29 U/L (21-72); ALKALINE PHOSPHATASE 64 U/L (38-126); ANION GAP 11 (5-19); ASPARTATE AMINO TRANSFERASE 33 U/L (17-59); BILIRUBIN,DIRECT 0.3 mg/dL (0.0-0.4); BILIRUBIN,TOTAL 0.4 mg/dL (0.2-1.3); BLOOD UREA NITROGEN 30 mg/dL (7-20); CALCIUM 9.7 mg/dL (8.4-10.2); CARBON DIOXIDE 30 mmol/L (22-30); CHLORIDE 103 mmol/L (98-107); CREATINE KINASE 118 U/L (55-170); GLUCOSE 104 mg/dL (75-110); POTASSIUM 5.4 mmol/L (3.6-5.0); SODIUM 143.7 mmol/L (137-145)
--- NOTE | 2018-02-22 14:51 | RADIOLOGY REPORT (SQ) ---
EXAM DESCRIPTION: CHEST 2 VIEWS COMPLETED DATE/TIME: 02/22/2018 2:38 pm REASON FOR STUDY: sob, cp COMPARISON: None. EXAM PARAMETERS: NUMBER OF VIEWS: two views TECHNIQUE: Digital Frontal and Lateral radiographic views of the chest acquired. RADIATION DOSE: NA LIMITATIONS: none FINDINGS: LUNGS AND PLEURA: No opacities, masses or pneumothorax. No pleural effusion. MEDIASTINUM AND HILAR STRUCTURES: No masses or contour abnormalities. HEART AND VASCULAR STRUCTURES: Heart normal size. No evidence for failure. BONES: No acute findings. HARDWARE: None in the chest. OTHER: No other significant finding. IMPRESSION: NO ACUTE RADIOGRAPHIC FINDING IN THE CHEST. TECHNICAL DOCUMENTATION: JOB ID: [id number] [email or web address] All Rights Reserved Reading location - IP/workstation name: [email or web address]
[2018-02-22 14:57] LABS: ABSOLUTE LYMPHOCYTES# (MANUAL) 1.7 10^3/uL (0.5-4.7); ABSOLUTE MONOCYTES # (MANUAL) 0.5 10^3/uL (0.1-1.4); ABSOLUTE NEUTROPHILS# (MANUAL) 1.6 10^3/uL (1.7-8.2); BASOPHILS % (MANUAL) 1 % (0-2); EOSINOPHILS % (MANUAL) 1 % (0-6); HYPOCHROMASIA SLIGHT; LYMPHOCYTES % (MANUAL) 43 % (13-45); MONOCYTES % (MANUAL) 14 % (3-13); PLATELET COMMENT ADEQUATE; POLYCHROMASIA SLIGHT; SEGMENTED NEUTROPHILS % (MAN) 41 % (42-78); TOTAL CELLS COUNTED 100
[2018-02-22 14:59] LABS: CREATINE KINASE MB 0.39 ng/mL (<4.55)
[2018-02-22 15:00] LABS: TROPONIN I < 0.012 ng/mL
[2018-02-22 16:04] LABS: APPEARANCE,URINE CLEAR; BILIRUBIN,URINE NEGATIVE (NEGATIVE); COLOR,URINE YELLOW; GLUCOSE, URINE NEGATIVE (NEGATIVE); KETONES,URINE NEGATIVE (NEGATIVE); LEUKOCYTE ESTERASE,URINE NEGATIVE (NEGATIVE); NITRITE,URINE NEGATIVE (NEGATIVE); PROTEIN,URINE NEGATIVE (NEGATIVE); URINE SPECIFIC GRAVITY 1.006; UROBILINOGEN,URINE NEGATIVE mg/dL (<2.0)
[2018-02-22 22:09] LABS: ANION GAP 11 (5-19); BLOOD UREA NITROGEN 29 mg/dL (7-20); CARBON DIOXIDE 29 mmol/L (22-30); CHLORIDE 103 mmol/L (98-107); GLUCOSE 103 mg/dL (75-110); SODIUM 143.4 mmol/L (137-145)
[2018-02-22 22:17] LABS: CREATINE KINASE MB 0.46 ng/mL (<4.55)
[2018-02-22 22:19] LABS: TROPONIN I < 0.012 ng/mL
--- NOTE | 2018-02-22 22:20 | RADIOLOGY REPORT (SQ) ---
EXAM DESCRIPTION: CT HEAD WITHOUT COMPLETED DATE/TIME: 02/22/2018 9:39 pm REASON FOR STUDY: weakness/ dizziness/ syncope R55 SYNCOPE AND COLLAPSE COMPARISON: 12/01/2017 TECHNIQUE: Axial images acquired through the brain without intravenous contrast. Images reviewed wi th bone, brain and subdural windows. Images stored on PACS. All CT scanners at this facility use dose modulation, iterative reconstruction, and/or weight based d osing when appropriate to reduce radiation dose to as low as reasonably achievable (ALARA). [facility]: Dose Right [facility]: CareDose [facility]: Dose Right [facility]: Teradose 4D [facility]: [employer] RADIATION DOSE: CT Rad equipment meets quality standard of care and radiation dose reduction techniq ues were employed. CTDIvol: 53.2 mGy. DLP: 1017 mGy-cm. mGy. LIMITATIONS: None. FINDINGS: VENTRICLES: Normal size and contour. CEREBRUM: No masses. No hemorrhage. No midline shift. No evidence for acute infarction. Normal gra y/white matter differentiation. No areas of low density in the white matter. CEREBELLUM: No masses. No hemorrhage. No alteration of density. No evidence for acute infarction. EXTRAAXIAL SPACES: No fluid collections. No masses. ORBITS AND GLOBE: No intra- or extraconal masses. Normal contour of globe without masses. CALVARIUM: No fracture. PARANASAL SINUSES: No fluid or mucosal thickening. SOFT TISSUES: No mass or hematoma. OTHER: No other significant finding. IMPRESSION: No acute intracranial findings. EVIDENCE OF ACUTE STROKE: NO. COMMENT: Quality ID # [id number]: Final reports with documentation of one or more dose reduction techniques (e.g., Automated exposure control, adjustment of the mA and/or kV according to patient size, use of iterative reconstruction technique) TECHNICAL DOCUMENTATION: JOB ID: [id number] 2010 [employer]- All Rights Reserved Reading location - IP/workstation name: [email or web address]
[2018-02-22] MEDS ORDERED: GABAPENTIN 300 MG CAPSULE PO ONE (23:15)
[2018-02-22] MEDS: ASPIRIN 81 MG TABLET, ENT COATED PO SCH (23:24)
[2018-02-22] MEDS: ATORVASTATIN CALCIUM 80 MG TABLET PO SCH (23:24)
[2018-02-22 23:53] LABS: APPEARANCE,URINE CLEAR; BILIRUBIN,URINE NEGATIVE (NEGATIVE); COLOR,URINE YELLOW; GLUCOSE, URINE NEGATIVE (NEGATIVE); KETONES,URINE NEGATIVE (NEGATIVE); LEUKOCYTE ESTERASE,URINE NEGATIVE (NEGATIVE); NITRITE,URINE NEGATIVE (NEGATIVE); PROTEIN,URINE NEGATIVE (NEGATIVE); URINE SPECIFIC GRAVITY 1.009; UROBILINOGEN,URINE NEGATIVE mg/dL (<2.0)
--- NOTE | 2018-02-23 00:07 | EKG REPORT ---
SEVERITY:- BORDERLINE ECG - SINUS RHYTHM PROBABLE LEFT ATRIAL ABNORMALITY BORDERLINE T WAVE ABNORMALITIES : Confirmed by: Haydee Caicedo MD 23-Feb-2018 00:06:41
[2018-02-23 04:32] LABS: ABSOLUTE EOSINOPHILS # (AUTO) 0.2 10^3/uL (0.0-0.6); ABSOLUTE LYMPHOCYTES (AUTO) 2.1 10^3/uL (0.5-4.7); ABSOLUTE MONOCYTES (AUTO) 0.5 10^3/uL (0.1-1.4); ABSOLUTE NEUT (AUTO) 1.6 10^3/uL (1.7-8.2); ALANINE AMINOTRANSFERASE 33 U/L (21-72); ALBUMIN 3.8 g/dL (3.5-5.0); ALKALINE PHOSPHATASE 70 U/L (38-126); ANION GAP 11 (5-19); ASPARTATE AMINO TRANSFERASE 27 U/L (17-59); BASOPHILS % (AUTO) 0.3 % (0-2); BILIRUBIN,DIRECT 0.3 mg/dL (0.0-0.4); BILIRUBIN,TOTAL 0.5 mg/dL (0.2-1.3); BLOOD UREA NITROGEN 29 mg/dL (7-20); CALCIUM 9.7 mg/dL (8.4-10.2); CARBON DIOXIDE 26 mmol/L (22-30); CHLORIDE 105 mmol/L (98-107); EOSINOPHILS % (AUTO) 4.6 % (0-6); GLUCOSE 84 mg/dL (75-110); HEMATOCRIT 37.8 % (37.9-51.0); HEMOGLOBIN 12.7 g/dL (13.5-17.0); LYMPHOCYTES % (AUTO) 48.3 % (13-45); MEAN CORPUSCULAR HEMOGLOBIN 31.5 pg (27.0-33.4); MEAN CORPUSCULAR HGB CONC 33.6 g/dL (32.0-36.0); MEAN CORPUSCULAR VOLUME 94 fl (80-97); MONOCYTES % (AUTO) 10.7 % (3-13); PLATELET COUNT 292 10^3/uL (150-450); POTASSIUM 5.1 mmol/L (3.6-5.0); RED BLOOD COUNT 4.02 10^6/uL (4.35-5.55); RED CELL DISTRIBUTION WIDTH 13.9 % (11.5-14.0); SEGMENTED NEUTROPHILS % (AUTO) 36.1 % (42-78); SODIUM 141.9 mmol/L (137-145); TOTAL CELLS COUNTED % (AUTO) 100 %; TOTAL PROTEIN 6.8 g/dL (6.3-8.2); WHITE BLOOD COUNT 4.4 10^3/uL (4.0-10.5)
[2018-02-23 04:43] LABS: CREATINE KINASE MB 0.49 ng/mL (<4.55)
[2018-02-23 04:47] LABS: TROPONIN I < 0.012 ng/mL
[2018-02-23] MEDS ORDERED: CLARITHROMYCIN 500 MG TABLET PO ONE (06:12)
[2018-02-23] MEDS: LANSOPRAZOLE 30 MG TAB.RAP.DR PO SCH ×2 (06:16→16:24)
[2018-02-23] MEDS: GABAPENTIN 300 MG CAPSULE PO SCH ×3 (06:16→22:53)
[2018-02-23] MEDS: CLARITHROMYCIN 500 MG TABLET PO SCH ×2 (06:16→17:10)
[2018-02-23] MEDS: AMOXICILLIN TRIHYDRATE 500 MG CAPSULE PO SCH ×2 (06:16→17:10)
[2018-02-23] MEDS: NORMAL SALINE 1000 ML 1,000 ML IV PRN ×2 (08:49→17:10)
--- NOTE | 2018-02-23 09:15 | PDOC H&P ---
History of Present Illness Admission Date/PCP: 02/22/18 18:07 MARY ANNE MONROE MD Patient complains of: Generalized weakness. History of Present Illness: CANDIDO WHITFIELD JR is a 77 year old male [place] male presented to the emergency room with complaints of generalized weakness patient states that he is lonely and he is crying while he is telling me his history. Patient has a history of high blood pressure. Patient states that he had a very bad episode of shingles on the right right flank involving multiple thoracolumbar dermatomes. States that he has been diagnosed with very serious stomach infection. States that his daughter is visiting and this morning he tried to get up he felt a little dizzy when to get up to drink water and he noticed that he was woozy . Past Medical History Cardiac Medical History: Reports: Hypertension Denies: Coronary Artery Disease Pulmonary Medical History: Denies: Asthma, Bronchitis, Chronic Obstructive Pulmonary Disease (COPD), Pneumonia Neurological Medical History: Denies: Seizures Endocrine Medical History: Reports: None Malignancy Medical History: Reports: Skin Cancer GI Medical History: Reports: Gastroesophageal Reflux Disease Musculoskeltal Medical History: Denies: Arthritis Psychiatric Medical History: Reports: None Hematology: Denies: Anemia Past Surgical History Past Surgical History: Reports: Vascular Surgery - Left carotid artery endarterectomuy, Other - SKIN CANCER ON NECK REMOVED Social History Smoking Status: Former Smoker Frequency of Alcohol Use: None Hx Recreational Drug Use: No Drugs: None Hx Prescription Drug Abuse: No Family History Family History: Hypertension. denies: DM, Hyperlipidemia Parental Family History Reviewed: No - Noncontributory Children Family History Reviewed: NA Sibling(s) Family History Reviewed.: NA Medication/Allergy Home Medications: Amlodipine Besylate 1 tab PO DAILY 02/22/18 Amoxicillin Trihydrate [Amoxil 500 mg Capsule] 2 cap PO Q12 02/22/18 Clarithromycin 1 tab PO Q12 02/22/18 Gabapentin [Neurontin] 600 mg PO Q8 02/22/18 Hydrochlorothiazide 25 mg PO DAILY 02/22/18 Lisinopril 20 mg PO DAILY 02/22/18 Omeprazole 40 mg PO DAILY 02/22/18 Allergies/Adverse Reactions: No Known Allergies Allergy (Verified 11/15/17 16:50) Review of Systems Constitutional: PRESENT: fatigue, weakness Cardiovascular: ABSENT: chest pain Respiratory: ABSENT: cough Gastrointestinal: ABSENT: abdominal pain Genitourinary: PRESENT: other - Polyuria patient states that he has a problem with his prostate. Neurological: PRESENT: dizziness. ABSENT: abnormal gait, abnormal movements, abnormal speech, confusion, convulsions, focal weakness, numbness, paresthesias , restless legs, syncope, tingling, tremor(s), weakness Psychiatric: PRESENT: depression. ABSENT: anxiety Physical Exam Vital Signs: Temp Pulse Resp BP Pulse Ox 98.4 F 100 15 133/64 H 99 02/22/18 17:01 02/22/18 13:11 02/22/18 17:01 02/22/18 17:01 02/22/18 17:01 General appearance: PRESENT: no acute distress, cooperative Head exam: PRESENT: atraumatic, normocephalic Eye exam: PRESENT: EOMI Ear exam: PRESENT: normal external ear exam Neck exam: PRESENT: full ROM. ABSENT: carotid bruit, tenderness, thyromegaly Respiratory exam: PRESENT: clear to auscultation karina. ABSENT: rhonchi, wheezes Cardiovascular exam: PRESENT: RRR. ABSENT: tachycardia GI/Abdominal exam: PRESENT: normal bowel sounds, soft. ABSENT: distended, tenderness Neurological exam: PRESENT: alert, awake, oriented to person, oriented to place , oriented to time, reflexes normal, CN II-XII grossly intact. ABSENT: motor sensory deficit, normal gait Psychiatric exam: ABSENT: agitated, anxious Results Impressions: Chest X-Ray 02/22/18 13:21 IMPRESSION: NO ACUTE RADIOGRAPHIC FINDING IN THE CHEST. Assessment & Plan - Diagnosis (1) Acute kidney failure Qualifiers: Acute renal failure type: unspecified Qualified Code(s): N17.9 - Acute kidney failure, unspecified Is this a current diagnosis for this admission?: Yes Plan: pt to continue po intake. will start ivf as needed. (2) Hyperkalemia Is this a current diagnosis for this admission?: Yes Plan: suspect acute on chronic kidney disease from htn. will administer kayexalate if needed. no ekg changes,. (3) Essential hypertension Is this a current diagnosis for this admission?: Yes Plan: restart hoem meds once bp allows. (4) GERD (gastroesophageal reflux disease) Qualifiers: Esophagitis presence: esophagitis presence not specified Qualified Code(s) : K21.9 - Gastro-esophageal reflux disease without esophagitis Is this a current diagnosis for this admission?: Yes Plan: continue ppi. (5) Herpes zoster Qualifiers: Herpes zoster complications: unspecified herpes zoster complication Qualified Code(s): B02.8 - Zoster with other complications Is this a current diagnosis for this admission?: Yes Plan: pt to continue his gabapentin. - Time Critical Time spent with patient: Less than 15 minutes Anticipated discharge: Home - Inpatient Certification Based on my medical assessment, after consideration of the patient's comorbidities, presenting symptoms, or acuity I expect that the services needed warrant INPATIENT care.: Yes I certify that my determination is in accordance with my understanding of Medicare's requirements for reasonable and necessary INPATIENT services [42 CFR 412.3e].: Yes Medical Necessity: Need For Continuous Telemetry Monitoring
[2018-02-23] MEDS: ENOXAPARIN SODIUM INJ 30 MG/0.3 ML DISP.SYRIN SUBCUT SCH (09:55)
[2018-02-23] MEDS: ASPIRIN 81 MG TABLET, ENT COATED PO SCH (09:55)
[2018-02-23] MEDS: MORPHINE SULFATE 10 MG/ML INJ IV PRN ×3 (10:02→22:52)
[2018-02-23 10:44] LABS: CREATINE KINASE MB 0.43 ng/mL (<4.55)
[2018-02-23 10:51] LABS: TROPONIN I < 0.012 ng/mL
--- NOTE | 2018-02-23 18:30 | PDOC PROGRESS REPORT ---
Subjective Progress Note for:: 02/23/18 Subjective:: 02/23/18 Patient seen today for follow-up Vitals are stable. CBC shows normal WBC count mild hemoglobin of 12.7 which I suspect is dilutional. Potassium is 5.1 creatinine is 1.69 we will recheck labs today in the afternoon. Reason For Visit: WEAKNESS,DIZZINESS,CUBA,HTN, PHN Physical Exam Vital Signs: Temp Pulse Resp BP Pulse Ox 97.7 F 71 16 116/55 L 99 02/23/18 15:31 02/23/18 16:00 02/23/18 16:00 02/23/18 16:00 02/23/18 16:00 Intake & Output 02/22/18 02/23/18 02/24/18 06:59 06:59 06:59 Intake Total 163 1632 Output Total 1350 Balance 163 282 Weight 175 lb 7.807 oz General appearance: PRESENT: no acute distress, cooperative Eye exam: PRESENT: EOMI Respiratory exam: PRESENT: clear to auscultation karina Cardiovascular exam: PRESENT: RRR GI/Abdominal exam: PRESENT: normal bowel sounds, soft. ABSENT: distended, tenderness Neurological exam: PRESENT: alert, awake, oriented to person, oriented to place Results Laboratory Results: 02/23/18 03:54 02/23/18 03:54 02/22/18 02/22/18 02/23/18 21:17 23:33 03:54 WBC 4.4 RBC 4.02 L Hgb 12.7 L Hct 37.8 L MCV 94 MCH 31.5 MCHC 33.6 RDW 13.9 Plt Count 292 Seg Neutrophils % 36.1 L Lymphocytes % 48.3 H Monocytes % 10.7 Eosinophils % 4.6 Basophils % 0.3 Absolute Neutrophils 1.6 L Absolute Lymphocytes 2.1 Absolute Monocytes 0.5 Absolute Eosinophils 0.2 Absolute Basophils 0.0 Sodium 143.4 Potassium 5.0 Chloride 103 Carbon Dioxide 29 Anion Gap 11 BUN 29 H Creatinine 1.84 H Est GFR ( Amer) 43 L Est GFR (Non-Af Amer) 36 L Glucose 103 Calcium 10.0 Phosphorus 3.0 Magnesium 2.9 H Total Bilirubin AST ALT Alkaline Phosphatase Total Protein Albumin Urine Color YELLOW Urine Appearance CLEAR Urine pH 8.0 Ur Specific [place] 1.009 Urine Protein NEGATIVE Urine Glucose (UA) NEGATIVE Urine Ketones NEGATIVE Urine Blood NEGATIVE Urine Nitrite NEGATIVE Ur Leukocyte Esterase NEGATIVE Urine WBC (Auto) 0 Urine RBC (Auto) 1 Stool Occult Blood 02/23/18 02/23/18 03:54 14:40 WBC RBC Hgb Hct MCV MCH MCHC RDW Plt Count Seg Neutrophils % Lymphocytes % Monocytes % Eosinophils % Basophils % Absolute Neutrophils Absolute Lymphocytes Absolute Monocytes Absolute Eosinophils Absolute Basophils Sodium 141.9 Potassium 5.1 H Chloride 105 Carbon Dioxide 26 Anion Gap 11 BUN 29 H Creatinine 1.69 H Est GFR ( Amer) 48 L Est GFR (Non-Af Amer) 40 L Glucose 84 Calcium 9.7 Phosphorus Magnesium Total Bilirubin 0.5 AST 27 ALT 33 Alkaline Phosphatase 70 Total Protein 6.8 Albumin 3.8 Urine Color Urine Appearance Urine pH Ur Specific [place] Urine Protein Urine Glucose (UA) Urine Ketones Urine Blood Urine Nitrite Ur Leukocyte Esterase Urine WBC (Auto) Urine RBC (Auto) Stool Occult Blood NEGATIVE 02/22/18 02/22/18 02/23/18 21:17 21:17 03:54 Creatine Kinase 101 90 CK-MB (CK-2) 0.46 Troponin I < 0.012 02/23/18 02/23/18 02/23/18 03:54 09:40 09:40 Creatine Kinase 87 CK-MB (CK-2) 0.49 0.43 Troponin I < 0.012 < 0.012 Impressions: Chest X-Ray 02/22/18 13:21 IMPRESSION: NO ACUTE RADIOGRAPHIC FINDING IN THE CHEST. Head CT 02/22/18 20:39 IMPRESSION: No acute intracranial findings. EVIDENCE OF ACUTE STROKE: NO. Assessment & Plan - Diagnosis (1) Acute kidney failure Qualifiers: Acute renal failure type: unspecified Qualified Code(s): N17.9 - Acute kidney failure, unspecified Is this a current diagnosis for this admission?: Yes Plan: pt to continue po intake. will start ivf as needed. (2) Hyperkalemia Is this a current diagnosis for this admission?: Yes Plan: suspect acute on chronic kidney disease from htn. will administer kayexalate if needed. no ekg changes,. (3) Essential hypertension Is this a current diagnosis for this admission?: Yes Plan: restart hoem meds once bp allows. (4) Herpes zoster Qualifiers: Herpes zoster complications: unspecified herpes zoster complication Qualified Code(s): B02.8 - Zoster with other complications Is this a current diagnosis for this admission?: Yes Plan: pt to continue his gabapentin.
[2018-02-23 19:02] LABS: PHOSPHORUS 3.8 mg/dL (2.5-4.5)
[2018-02-23 19:03] LABS: ANION GAP 11 (5-19); BLOOD UREA NITROGEN 26 mg/dL (7-20); CALCIUM 9.3 mg/dL (8.4-10.2); CARBON DIOXIDE 24 mmol/L (22-30); CHLORIDE 105 mmol/L (98-107); GLUCOSE 86 mg/dL (75-110); SODIUM 140.3 mmol/L (137-145)
[2018-02-23] MEDS: ATORVASTATIN CALCIUM 80 MG TABLET PO SCH (22:53)
[2018-02-24] MEDS: NORMAL SALINE 1000 ML 1,000 ML IV PRN ×3 (00:32→18:34)
[2018-02-24] MEDS: LANSOPRAZOLE 30 MG TAB.RAP.DR PO SCH ×2 (05:18→17:31)
[2018-02-24] MEDS: CLARITHROMYCIN 500 MG TABLET PO SCH ×2 (05:18→17:31)
[2018-02-24] MEDS: AMOXICILLIN TRIHYDRATE 500 MG CAPSULE PO SCH ×2 (05:18→17:31)
[2018-02-24] MEDS: GABAPENTIN 300 MG CAPSULE PO SCH ×3 (05:18→22:27)
[2018-02-24 07:03] LABS: HEMATOCRIT 34.8 % (37.9-51.0); HEMOGLOBIN 11.7 g/dL (13.5-17.0); MEAN CORPUSCULAR HEMOGLOBIN 31.9 pg (27.0-33.4); MEAN CORPUSCULAR HGB CONC 33.8 g/dL (32.0-36.0); MEAN CORPUSCULAR VOLUME 95 fl (80-97); PLATELET COUNT 316 10^3/uL (150-450); RED BLOOD COUNT 3.67 10^6/uL (4.35-5.55); RED CELL DISTRIBUTION WIDTH 13.8 % (11.5-14.0); WHITE BLOOD COUNT 3.8 10^3/uL (4.0-10.5)
[2018-02-24 07:38] LABS: ALANINE AMINOTRANSFERASE 24 U/L (21-72); ALBUMIN 3.4 g/dL (3.5-5.0); ALKALINE PHOSPHATASE 57 U/L (38-126); ANION GAP 12 (5-19); ASPARTATE AMINO TRANSFERASE 23 U/L (17-59); BILIRUBIN,DIRECT 0.3 mg/dL (0.0-0.4); BILIRUBIN,TOTAL 0.3 mg/dL (0.2-1.3); BLOOD UREA NITROGEN 23 mg/dL (7-20); CALCIUM 9.3 mg/dL (8.4-10.2); CARBON DIOXIDE 23 mmol/L (22-30); CHLORIDE 108 mmol/L (98-107); GLUCOSE 92 mg/dL (75-110); POTASSIUM 5.1 mmol/L (3.6-5.0); SODIUM 142.7 mmol/L (137-145); TOTAL PROTEIN 6.2 g/dL (6.3-8.2)
[2018-02-24 07:59] LABS: ABSOLUTE LYMPHOCYTES# (MANUAL) 1.9 10^3/uL (0.5-4.7); ABSOLUTE MONOCYTES # (MANUAL) 0.5 10^3/uL (0.1-1.4); ABSOLUTE NEUTROPHILS# (MANUAL) 1.3 10^3/uL (1.7-8.2); BASOPHILS % (MANUAL) 0 % (0-2); EOSINOPHILS % (MANUAL) 6 % (0-6); LYMPHOCYTES % (MANUAL) 48 % (13-45); MONOCYTES % (MANUAL) 12 % (3-13); SEGMENTED NEUTROPHILS % (MAN) 33 % (42-78); TOTAL CELLS COUNTED 100
[2018-02-24 08:00] LABS: PLATELET COMMENT ADEQUATE; RBC MORPHOLOGY COMMENT NORMO-CYTIC/CHROMIC
[2018-02-24] MEDS: MORPHINE SULFATE 10 MG/ML INJ IV PRN (08:23)
[2018-02-24 09:40] LABS: ARTERIAL BLOOD BASE EXCESS -2.9 mmol/L; ARTERIAL BLOOD H2CO3 1.24 mmol/L (1.05-1.35); ARTERIAL BLOOD HCO3 22.4 mmol/L (20-26); ARTERIAL BLOOD O2 SATURATION 94.7 % (94-98); ARTERIAL BLOOD PCO2 41.2 mmHg (35-45); ARTERIAL BLOOD PH 7.35 (7.35-7.45); ARTERIAL BLOOD PO2 76.2 mmHg (80-100); ARTERIAL BLOOD TOTAL CO2 23.7 mmol/L (23-27)
[2018-02-24 09:41] LABS: ARTERIAL BLOOD FIO2 ROOM AIR
[2018-02-24] MEDS: ASPIRIN 81 MG TABLET, ENT COATED PO SCH (10:51)
[2018-02-24] MEDS: ENOXAPARIN SODIUM INJ 30 MG/0.3 ML DISP.SYRIN SUBCUT SCH (10:51)
[2018-02-24] MEDS: HYDROCODONE/ACETAMINOPHEN 5-325 MG TABLET PO PRN ×2 (12:08→20:45)
--- NOTE | 2018-02-24 13:28 | RADIOLOGY REPORT (SQ) ---
EXAM DESCRIPTION: MRI HEAD WITHOUT COMPLETED DATE/TIME: 02/24/2018 1:02 pm REASON FOR STUDY: rule out CVA R55 SYNCOPE AND COLLAPSE COMPARISON: 12/01/2017 TECHNIQUE: Multiplanar imaging includes non-contrasted T1, T2, FLAIR, and diffusion with ADC map seq uences. Images stored on PACS. LIMITATIONS: None. FINDINGS: ANATOMY: No anomalies. Normal vascular flow voids. Pituitary fossa normal. CSF SPACES: Normal in size and contour. No hemorrhage. CEREBRUM: Sulci and gyri normal in size and contour. No evidence of hemorrhage, mass, or extraaxial f luid collection. 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 No hemorrhage. No edema, masses or mass effect. Internal auditory canals, cerebello-pontine angles, mastoids normal. DIFFUSION IMAGING: Negative for acute or sub-acute infarction. ORBITS: No masses. Globes normal. PARANASAL SINUSES: Mucosal thickening left maxillary sinus. OTHER: No other significant finding. IMPRESSION: No acute abnormality in the brain. EVIDENCE OF ACUTE STROKE: NO. TECHNICAL DOCUMENTATION: JOB ID: [id number] [employer]- All Rights Reserved Reading location - IP/workstation name: [email or web address]
--- NOTE | 2018-02-24 13:33 | RADIOLOGY REPORT (SQ) ---
EXAM DESCRIPTION: MRA HEAD WITHOUT COMPLETED DATE/TIME: 02/24/2018 1:02 pm REASON FOR STUDY: rule out CVA R55 SYNCOPE AND COLLAPSE COMPARISON: None. TECHNIQUE: Axial 3-D [id number] acquisition imaging performed through the brain in the area of t he [place] of [place]. Images reformatted using 3-D MIPS. LIMITATIONS: None. FINDINGS: SOURCE IMAGES: See separate report of the same date. 3-D MIP: No aneurysm. No occlusions. No significant stenosis. OTHER: No other significant finding. IMPRESSION: NORMAL MRA OF THE [place]. TECHNICAL DOCUMENTATION: JOB ID: [id number] [employer]- All Rights Reserved Reading location - IP/workstation name: [email or web address]
--- NOTE | 2018-02-24 14:56 | PDOC PROGRESS REPORT ---
Subjective Progress Note for:: 02/24/18 Subjective:: 02/23/18 Patient seen today for follow-up Vitals are stable. CBC shows normal WBC count mild hemoglobin of 12.7 which I suspect is dilutional. Potassium is 5.1 creatinine is 1.69 we will recheck labs today in the afternoon. 02/24/18 Patient seen today for follow-up of his admission for weakness dizziness syncope. Admitted for stroke CVA TIA eval but also possibly cardiac etiology related to syncopal episode. Patient is overall stable vitals are stable. CT of the head MRI and MRA has been negative. Echocardiogram is pending. Plan will be based on the echocardiogram results. If any wall motion abnormality on the echo will proceed with cardiology consult and ischemic evaluation. Reason For Visit: DIZZINESS/GENERALIZED WEAKNESS Physical Exam Vital Signs: Temp Pulse Resp BP Pulse Ox 97.8 F 71 16 137/57 H 99 02/24/18 11:44 02/24/18 11:44 02/24/18 11:44 02/24/18 11:44 02/24/18 11:44 Intake & Output 02/23/18 02/24/18 02/25/18 06:59 06:59 06:59 Intake Total 163 3353 992 Output Total 2110 Balance 163 1243 992 Weight 175 lb 7.807 oz 182 lb 1.629 oz General appearance: PRESENT: no acute distress, cooperative Eye exam: PRESENT: EOMI Ear exam: PRESENT: normal external ear exam Respiratory exam: PRESENT: clear to auscultation karina Cardiovascular exam: PRESENT: RRR GI/Abdominal exam: PRESENT: normal bowel sounds, soft. ABSENT: guarding, tenderness Neurological exam: PRESENT: alert, awake, oriented to person, oriented to place , oriented to time, CN II-XII grossly intact Results Laboratory Results: 02/24/18 05:39 02/24/18 05:39 02/23/18 02/23/18 02/23/18 09:40 09:40 14:40 WBC RBC Hgb Hct MCV MCH MCHC RDW Plt Count Seg Neutrophils % Lymphocytes % Monocytes % Eosinophils % Basophils % Absolute Neutrophils Absolute Lymphocytes Absolute Monocytes Absolute Eosinophils Absolute Basophils Carbonic Acid HCO3/H2CO3 Ratio ABG pH ABG pCO2 ABG pO2 ABG HCO3 ABG O2 Saturation ABG Base Excess FiO2 Sodium 140.3 Potassium 5.0 Chloride 105 Carbon Dioxide 24 Anion Gap 11 BUN 26 H Creatinine 1.61 H Est GFR ( Amer) 51 L Est GFR (Non-Af Amer) 42 L Glucose 86 Calcium 9.3 Phosphorus 3.8 Magnesium 2.8 H Total Bilirubin AST ALT Alkaline Phosphatase Total Protein Albumin Prostate Specific Ag Stool Occult Blood NEGATIVE 02/24/18 02/24/18 02/24/18 05:39 05:39 09:20 WBC 3.8 L RBC 3.67 L Hgb 11.7 L Hct 34.8 L MCV 95 MCH 31.9 MCHC 33.8 RDW 13.8 Plt Count 316 Seg Neutrophils % Not Reportable Lymphocytes % Not Reportable Monocytes % Not Reportable Eosinophils % Not Reportable Basophils % Not Reportable Absolute Neutrophils Not Reportable Absolute Lymphocytes Not Reportable Absolute Monocytes Not Reportable Absolute Eosinophils Not Reportable Absolute Basophils Not Reportable Carbonic Acid 1.24 HCO3/H2CO3 Ratio 18:1 ABG pH 7.35 ABG pCO2 41.2 ABG pO2 76.2 L ABG HCO3 22.4 ABG O2 Saturation 94.7 ABG Base Excess -2.9 FiO2 ROOM AIR Sodium 142.7 Potassium 5.1 H Chloride 108 H Carbon Dioxide 23 Anion Gap 12 BUN 23 H Creatinine 1.69 H Est GFR ( Amer) 48 L Est GFR (Non-Af Amer) 40 L Glucose 92 Calcium 9.3 Phosphorus Magnesium Total Bilirubin 0.3 AST 23 ALT 24 Alkaline Phosphatase 57 Total Protein 6.2 L Albumin 3.4 L Prostate Specific Ag Stool Occult Blood 02/24/18 11:25 WBC RBC Hgb Hct MCV MCH MCHC RDW Plt Count Seg Neutrophils % Lymphocytes % Monocytes % Eosinophils % Basophils % Absolute Neutrophils Absolute Lymphocytes Absolute Monocytes Absolute Eosinophils Absolute Basophils Carbonic Acid HCO3/H2CO3 Ratio ABG pH ABG pCO2 ABG pO2 ABG HCO3 ABG O2 Saturation ABG Base Excess FiO2 Sodium Potassium Chloride Carbon Dioxide Anion Gap BUN Creatinine Est GFR ( Amer) Est GFR (Non-Af Amer) Glucose Calcium Phosphorus Magnesium Total Bilirubin AST ALT Alkaline Phosphatase Total Protein Albumin Prostate Specific Ag 2.550 Stool Occult Blood 02/22/18 02/22/18 02/23/18 21:17 21:17 03:54 Creatine Kinase 101 90 CK-MB (CK-2) 0.46 Troponin I < 0.012 02/23/18 02/23/18 02/23/18 03:54 09:40 09:40 Creatine Kinase 87 CK-MB (CK-2) 0.49 0.43 Troponin I < 0.012 < 0.012 Impressions: Chest X-Ray 02/22/18 13:21 IMPRESSION: NO ACUTE RADIOGRAPHIC FINDING IN THE CHEST. Head CT 02/22/18 20:39 IMPRESSION: No acute intracranial findings. EVIDENCE OF ACUTE STROKE: NO. Brain MRI with MRA 02/24/18 00:00 IMPRESSION: NORMAL MRA OF THE [place] OF [place]. Head MRI 02/24/18 00:00 IMPRESSION: No acute abnormality in the brain. EVIDENCE OF ACUTE STROKE: NO. Assessment & Plan - Diagnosis (1) Acute kidney failure Qualifiers: Acute renal failure type: unspecified Qualified Code(s): N17.9 - Acute kidney failure, unspecified Is this a current diagnosis for this admission?: Yes Plan: Pt to continue po intake. Continue IV fluids. Suspect renal failure related to acute kidney injury. No previous creatinine to compare. Uterus renal ultrasound for possible nephrolithiasis. (2) Hyperkalemia Is this a current diagnosis for this admission?: Yes Plan: suspect acute on chronic kidney disease from htn. will administer kayexalate if needed. no ekg changes,. (3) Essential hypertension Is this a current diagnosis for this admission?: Yes Plan: restart hoem meds once bp allows. (4) Herpes zoster Qualifiers: Herpes zoster complications: unspecified herpes zoster complication Qualified Code(s): B02.8 - Zoster with other complications Is this a current diagnosis for this admission?: Yes Plan: pt to continue his gabapentin. Patient started on medication as needed. - Time Time Spent with patient: Less than 15 minutes - Inpatient Certification Medical Necessity: Need Close Monitoring Due to Risk of Patient Decompensation, Need For IV Fluids
--- NOTE | 2018-02-24 17:30 | EKG REPORT ---
SEVERITY:- ABNORMAL ECG - SINUS RHYTHM NONSPECIFIC T ABNORMALITIES, LATERAL LEADS : Confirmed by: Haydee Caicedo MD 24-Feb-2018 17:29:50
[2018-02-24 18:33] LABS: C-REACTIVE PROTEIN 6.7 mg/L (<10.0)
[2018-02-24 18:47] LABS: FREE T4 (FREE THYROXINE) 0.96 ng/dL (0.78-2.19)
[2018-02-24 19:01] LABS: THYROID STIMULATING HORMONE 1.68 uIU/mL (0.47-4.68)
[2018-02-24 19:35] LABS: FOLATE 12.4 ng/mL (>2.76)
[2018-02-24] MEDS ORDERED: POLYETHYLENE GLYCOL 3350 POWDER 17 GM/1 PACKET PO PRN (23:27)
[2018-02-25 05:46] LABS: ABSOLUTE BASOPHILS # (AUTO) 0.1 10^3/uL (0.0-0.2); ABSOLUTE EOSINOPHILS # (AUTO) 0.3 10^3/uL (0.0-0.6); ABSOLUTE LYMPHOCYTES (AUTO) 2.1 10^3/uL (0.5-4.7); ABSOLUTE MONOCYTES (AUTO) 0.4 10^3/uL (0.1-1.4); ABSOLUTE NEUT (AUTO) 1.4 10^3/uL (1.7-8.2); BASOPHILS % (AUTO) 1.3 % (0-2); EOSINOPHILS % (AUTO) 6.1 % (0-6); HEMOGLOBIN 10.7 g/dL (13.5-17.0); LYMPHOCYTES % (AUTO) 49.6 % (13-45); MEAN CORPUSCULAR HEMOGLOBIN 31.9 pg (27.0-33.4); MEAN CORPUSCULAR HGB CONC 33.4 g/dL (32.0-36.0); MEAN CORPUSCULAR VOLUME 95 fl (80-97); MONOCYTES % (AUTO) 10.6 % (3-13); PLATELET COUNT 240 10^3/uL (150-450); RED BLOOD COUNT 3.36 10^6/uL (4.35-5.55); RED CELL DISTRIBUTION WIDTH 13.9 % (11.5-14.0); SEGMENTED NEUTROPHILS % (AUTO) 32.4 % (42-78); TOTAL CELLS COUNTED % (AUTO) 100 %; WHITE BLOOD COUNT 4.2 10^3/uL (4.0-10.5)
[2018-02-25] MEDS: CLARITHROMYCIN 500 MG TABLET PO SCH ×2 (05:49→18:12)
[2018-02-25] MEDS: LANSOPRAZOLE 30 MG TAB.RAP.DR PO SCH ×2 (05:49→18:55)
[2018-02-25] MEDS: AMOXICILLIN TRIHYDRATE 500 MG CAPSULE PO SCH ×2 (05:49→18:11)
[2018-02-25] MEDS: NORMAL SALINE 1000 ML 1,000 ML IV PRN ×2 (05:49→18:12)
[2018-02-25] MEDS: GABAPENTIN 300 MG CAPSULE PO SCH ×3 (05:49→21:41)
[2018-02-25] MEDS: HYDROCODONE/ACETAMINOPHEN 5-325 MG TABLET PO PRN ×2 (05:50→18:11)
[2018-02-25 05:54] LABS: ALANINE AMINOTRANSFERASE 23 U/L (21-72); ALKALINE PHOSPHATASE 56 U/L (38-126); ANION GAP 12 (5-19); ASPARTATE AMINO TRANSFERASE 21 U/L (17-59); BILIRUBIN,DIRECT 0.2 mg/dL (0.0-0.4); BILIRUBIN,TOTAL 0.2 mg/dL (0.2-1.3); BLOOD UREA NITROGEN 23 mg/dL (7-20); CALCIUM 8.6 mg/dL (8.4-10.2); CARBON DIOXIDE 20 mmol/L (22-30); CHLORIDE 109 mmol/L (98-107); GLUCOSE 123 mg/dL (75-110); POTASSIUM 5.1 mmol/L (3.6-5.0); SODIUM 140.7 mmol/L (137-145); TOTAL PROTEIN 5.6 g/dL (6.3-8.2)
[2018-02-25] MEDS: ENOXAPARIN SODIUM INJ 30 MG/0.3 ML DISP.SYRIN SUBCUT SCH (12:25)
[2018-02-25] MEDS: DOCUSATE SODIUM 100 MG CAPSULE PO SCH ×2 (12:25→18:11)
[2018-02-25] MEDS: ASPIRIN 81 MG TABLET, ENT COATED PO SCH (12:25)
[2018-02-25] MEDS ORDERED: REGADENOSON INJ 0.4 MG/5 ML DISP.SYRIN IV ONE (13:52)
[2018-02-25] MEDS ORDERED: CYANOCOBALAMIN (VITAMIN B-12) INJ 1000 MCG/1 ML VIAL IM SCH (20:00)
[2018-02-25] MEDS ORDERED: CYANOCOBALAMIN (VITAMIN B-12) INJ 1000 MCG/1 ML VIAL IM ONE (20:45)
[2018-02-25] MEDS ORDERED: CYANOCOBALAMIN (VITAMIN B-12) 1,000 MCG TABLET PO ONE (21:00)
[2018-02-25] MEDS ORDERED: SODIUM POLYSTYRENE SULFONATE 15 GM/60 ML PO ONE (21:00)
--- NOTE | 2018-02-25 22:14 | PDOC PROGRESS REPORT ---
Subjective Progress Note for:: 02/25/18 Subjective:: 02/23/18 Patient seen today for follow-up Vitals are stable. CBC shows normal WBC count mild hemoglobin of 12.7 which I suspect is dilutional. Potassium is 5.1 creatinine is 1.69 we will recheck labs today in the afternoon. 02/24/18 Patient seen today for follow-up of his admission for weakness dizziness syncope. Admitted for stroke CVA TIA eval but also possibly cardiac etiology related to syncopal episode. Patient is overall stable vitals are stable. CT of the head MRI and MRA has been negative. Echocardiogram is pending. Plan will be based on the echocardiogram results. If any wall motion abnormality on the echo will proceed with cardiology consult and ischemic evaluation. 02/25/18 Patient seen today for follow-up of his admission for generalized weakness and dizziness. Patient is a 77-year-old -[place] male who lives alone and seems depressed. Upon giving history patient was crying and saying that he is lonely. Patient today does have his daughter and her nurse friends is here visiting currently. I suspect the abdominal pain is related to his severe attack of shingles involving multiple dermatomes pain on his right flank anteriorly to the right side of the abdomen and back to the lumbar area is contributing to Pain. Discussed with patient that we have evaluated him: 02/22/2018 chest x-ray : negative. 02/22/2018 CT head noncontrast: No acute intracranial findings. 02/24/2018 MRI/MRA: Negative MRI with a normal MRA of the [place]. 02/24/2018 she had a Cardiolite stress test: Received call from Dr. Caicedo for stress test is negative. Official report is still pending please review once available with the patient. Today all the test results discussed with the daughter I had suspected neuropathy question B12 deficiency we have gotten a stat B12 level which is around 400. Although in the normal range I suspect the patient has B12 deficiency affecting his balance and gait. Given B12 1000 mcg today and the dose for tomorrow, with plans of starting patient on B12 on a daily basis po. Discussed with case investigator that the patient will need a short-term rehab facility with extensive physical therapy. Discussed with family that once discharged patient also will benefit from thinking of an antidepressant Reason For Visit: DIZZINESS/GENERALIZED WEAKNESS Physical Exam Vital Signs: Temp Pulse Resp BP Pulse Ox 98.0 F 86 16 145/64 H 99 02/25/18 19:45 02/25/18 19:45 02/25/18 19:45 02/25/18 19:45 02/25/18 19:45 Intake & Output 02/24/18 02/25/18 02/26/18 06:59 06:59 06:59 Intake Total 3353 4817 1651 Output Total 2110 3150 1275 Balance 1243 1667 376 Weight 182 lb 1.629 oz 188 lb 14.978 oz General appearance: PRESENT: no acute distress, cooperative. ABSENT: obese Head exam: PRESENT: atraumatic, normocephalic Eye exam: PRESENT: EOMI. ABSENT: nystagmus Ear exam: PRESENT: normal external ear exam Mouth exam: PRESENT: dry mucosa Throat exam: PRESENT: tonsillar erythema, tonsillogmegaly. ABSENT: tonsillar exudate Neck exam: ABSENT: tenderness Respiratory exam: PRESENT: clear to auscultation karina. ABSENT: accessory muscle use, wheezes Cardiovascular exam: PRESENT: RRR. ABSENT: diastolic murmur Pulses: PRESENT: normal dorsalis pedis pul, +1 pedal pulses bilateral, +2 pedal pulses bilateral GI/Abdominal exam: PRESENT: normal bowel sounds, soft. ABSENT: distended, tenderness Rectal exam: PRESENT: heme (-) stool Gentrourinary exam: PRESENT: other Neurological exam: PRESENT: alert, awake, oriented to person, oriented to place , oriented to time, CN II-XII grossly intact, motor sensory deficit Psychiatric exam: PRESENT: anxious Results Laboratory Results: 02/25/18 04:30 02/25/18 04:30 02/25/18 02/25/18 04:30 04:30 WBC 4.2 RBC 3.36 L Hgb 10.7 L Hct 32.0 L MCV 95 MCH 31.9 MCHC 33.4 RDW 13.9 Plt Count 240 Seg Neutrophils % 32.4 L Lymphocytes % 49.6 H Monocytes % 10.6 Eosinophils % 6.1 H Basophils % 1.3 Absolute Neutrophils 1.4 L Absolute Lymphocytes 2.1 Absolute Monocytes 0.4 Absolute Eosinophils 0.3 Absolute Basophils 0.1 Sodium 140.7 Potassium 5.1 H Chloride 109 H Carbon Dioxide 20 L Anion Gap 12 BUN 23 H Creatinine 1.48 H Est GFR ( Amer) 56 L Est GFR (Non-Af Amer) 46 L Glucose 123 H Calcium 8.6 Total Bilirubin 0.2 AST 21 ALT 23 Alkaline Phosphatase 56 Total Protein 5.6 L Albumin 3.0 L 02/22/18 02/22/18 02/23/18 21:17 21:17 03:54 Creatine Kinase 101 90 CK-MB (CK-2) 0.46 Troponin I < 0.012 02/23/18 02/23/18 02/23/18 03:54 09:40 09:40 Creatine Kinase 87 CK-MB (CK-2) 0.49 0.43 Troponin I < 0.012 < 0.012 Impressions: Chest X-Ray 02/22/18 13:21 IMPRESSION: NO ACUTE RADIOGRAPHIC FINDING IN THE CHEST. Head CT 02/22/18 20:39 IMPRESSION: No acute intracranial findings. EVIDENCE OF ACUTE STROKE: NO. Brain MRI with MRA 02/24/18 00:00 IMPRESSION: NORMAL MRA OF THE [place]. Head MRI 02/24/18 00:00 IMPRESSION: No acute abnormality in the brain. EVIDENCE OF ACUTE STROKE: NO. Assessment & Plan - Diagnosis (1) Acute kidney failure Qualifiers: Acute renal failure type: unspecified Qualified Code(s): N17.9 - Acute kidney failure, unspecified Is this a current diagnosis for this admission?: Yes Plan: Pt to continue po intake. Continue IV fluids. Suspect renal failure related to acute kidney injury. No previous creatinine to compare. Uterus renal ultrasound for possible nephrolithiasis. (2) Hyperkalemia Is this a current diagnosis for this admission?: Yes Plan: We will give patient Kayexalate 15 g 1. We will also check for hemoglobin A1c, although the patient is not morbidly obese he does have an elevated BMI of 32. 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 (3) Essential hypertension Is this a current diagnosis for this admission?: Yes Plan: restart home meds once bp allows. (4) Herpes zoster Qualifiers: Herpes zoster complications: unspecified herpes zoster complication Qualified Code(s): B02.8 - Zoster with other complications Is this a current diagnosis for this admission?: Yes Plan: pt to continue his gabapentin. Patient started on medication as needed. Continue as needed pain medication as needed. Patient to continue Zostavax on an outpatient basis.
--- NOTE | 2018-02-25 22:19 | RADIOLOGY REPORT (SQ) ---
EXAM DESCRIPTION: U/S RETROPERITON LTD COMPLETED DATE/TIME: 02/25/2018 9:16 pm REASON FOR STUDY: ACUTE KIDNEY INJURY / DECREASED CLEARANCE R55 SYNCOPE AND COLLAPSE N17.8 OTHER A CUTE KIDNEY FAILURE I10 ESSENTIAL (PRIMARY) HYPERTENSION COMPARISON: None. TECHNIQUE: Dynamic and static grayscale images acquired of the kidneys and bladder and recorded on P ACS. Additional selected color Doppler and spectral images recorded. LIMITATIONS: None. FINDINGS: RIGHT KIDNEY: Normal size, 9.4 cm. Normal echogenicity. No solid or suspicious masses . No hydronephrosis. No calcifications. LEFT KIDNEY: Normal size, 9.6 cm. Normal echogenicity. No solid or suspicious masses. No hydro nephrosis. No calcifications. BLADDER: Bilateral ureteral jets are seen. No bladder mass is appreciated. OTHER FINDINGS: No other significant finding. IMPRESSION: NORMAL RENAL AND BLADDER ULTRASOUND. TECHNICAL DOCUMENTATION: JOB ID: [id number] [employer]- All Rights Reserved Reading location - IP/workstation name: [email or web address]
[2018-02-26] MEDS: HYDROCODONE/ACETAMINOPHEN 5-325 MG TABLET PO PRN (02:38)
[2018-02-26] MEDS: NORMAL SALINE 1000 ML 1,000 ML IV PRN (05:09)
[2018-02-26] MEDS: CLARITHROMYCIN 500 MG TABLET PO SCH ×2 (05:11→17:51)
[2018-02-26] MEDS: GABAPENTIN 300 MG CAPSULE PO SCH ×3 (05:11→21:09)
[2018-02-26] MEDS: AMOXICILLIN TRIHYDRATE 500 MG CAPSULE PO SCH ×2 (05:11→17:52)
[2018-02-26] MEDS: LANSOPRAZOLE 30 MG TAB.RAP.DR PO SCH ×2 (05:12→17:52)
[2018-02-26 06:06] LABS: ABSOLUTE BASOPHILS # (AUTO) 0.1 10^3/uL (0.0-0.2); ABSOLUTE EOSINOPHILS # (AUTO) 0.2 10^3/uL (0.0-0.6); ABSOLUTE LYMPHOCYTES (AUTO) 1.8 10^3/uL (0.5-4.7); ABSOLUTE MONOCYTES (AUTO) 0.5 10^3/uL (0.1-1.4); ABSOLUTE NEUT (AUTO) 1.5 10^3/uL (1.7-8.2); ALANINE AMINOTRANSFERASE 21 U/L (21-72); ALBUMIN 3.3 g/dL (3.5-5.0); ALKALINE PHOSPHATASE 61 U/L (38-126); ANION GAP 11 (5-19); ASPARTATE AMINO TRANSFERASE 24 U/L (17-59); BASOPHILS % (AUTO) 1.4 % (0-2); BILIRUBIN,DIRECT 0.2 mg/dL (0.0-0.4); BILIRUBIN,TOTAL 0.2 mg/dL (0.2-1.3); BLOOD UREA NITROGEN 22 mg/dL (7-20); CARBON DIOXIDE 23 mmol/L (22-30); CHLORIDE 108 mmol/L (98-107); EOSINOPHILS % (AUTO) 5.9 % (0-6); GLUCOSE 96 mg/dL (75-110); HEMATOCRIT 33.9 % (37.9-51.0); HEMOGLOBIN 11.5 g/dL (13.5-17.0); LYMPHOCYTES % (AUTO) 43.8 % (13-45); MEAN CORPUSCULAR HEMOGLOBIN 31.8 pg (27.0-33.4); MEAN CORPUSCULAR HGB CONC 33.9 g/dL (32.0-36.0); MEAN CORPUSCULAR VOLUME 94 fl (80-97); MONOCYTES % (AUTO) 12.4 % (3-13); PHOSPHORUS 3.6 mg/dL (2.5-4.5); PLATELET COUNT 278 10^3/uL (150-450); POTASSIUM 5.1 mmol/L (3.6-5.0); RED BLOOD COUNT 3.62 10^6/uL (4.35-5.55); RED CELL DISTRIBUTION WIDTH 13.9 % (11.5-14.0); SEGMENTED NEUTROPHILS % (AUTO) 36.5 % (42-78); SODIUM 142.4 mmol/L (137-145); TOTAL CELLS COUNTED % (AUTO) 100 %; TOTAL PROTEIN 6.1 g/dL (6.3-8.2); WHITE BLOOD COUNT 4.1 10^3/uL (4.0-10.5)
[2018-02-26 06:30] LABS: ERYTHROCYTE SEDIMENTATION RATE 54 mm/hr (0-20)
[2018-02-26] MEDS ORDERED: SODIUM POLYSTYRENE SULFONATE 15 GM/60 ML PO ONE (07:48)
[2018-02-26] MEDS: ASPIRIN 81 MG TABLET, ENT COATED PO SCH (09:31)
[2018-02-26] MEDS: DOCUSATE SODIUM 100 MG CAPSULE PO SCH ×2 (09:31→17:51)
[2018-02-26] MEDS: ENOXAPARIN SODIUM INJ 30 MG/0.3 ML DISP.SYRIN SUBCUT SCH (09:31)
--- NOTE | 2018-02-26 09:36 | Physician Advisory Note ---
Physician Advisor ProgressNote .: [facility], I have reviewed the medical record for this patient. Physician Advisor Statement: Please consider documenting, if you agree: 1. Each day, what are clinical concerns/reasons pt still needs to be in hospital - what doing for pt, what checking for, .... 2. Prior baseline Cr (see below, & previous visit info) 3. Has pt had "orthostatic hypotension" this stay? Did pt have a "syncopal episode" just prior to this stay, as seems to be suggested by PN 02/24? - any details? 4. ? - "possible adverse effect of lisinopril & HCTZ causing CUBA & hyperkalemia & hypotension" ? 5. ? - "possible adverse effect of neurontin causing depression/dizziness ..." ? 6. "Chronic diastolic CHF" (is grade I/IV per 12/03 ECHO - if hasn't had exac before, it's called "stage B chr diast CHF" Status: appropriate for Inpatient status. See below. Complex case, more so than initial notes seemed to suggest. 77yo w/HTN usually on 3 BP meds including HCTZ & PIPPA-I, post-herpetic neuralgia with 5/5 pain, atherosclerosis evidenced by need for Lt CEA, GERD w/current H.pylori tx underway at time of adm, presented w/weakness/SOB/CP/lightheadedness worsened by standing or attempting to walk, fatigue, polyuria that patient related to prostate problem. Orthostatics were done in ED, but this reviewer hasn't found their results in computerized chart. Pt evidenced anemia, hyperkalemia of 5.4, elevated BUN & Cr of 30 & 1.97 (Cr was 1.19 on 11/30/17 discharge from admission when he had dx.s including syncope due to dehydration, difficulty swallowing w/ 20# wt loss over 2mo & possible gastric volvulus, along w/shingles for which he was started on neurontin.) ED nurse documented he "has slight droop to Rt lips & mouth", & was "very unsteady on feet" (notes at 13:18 & 15:17). Attending noted CUBA, hyperkalemia, & was concerned for possible underlying CVA or TIA, or cardiac ischemia producing pt's sx. She held all 3 BP meds & monitored BPs, ordered ASA & high dose Lipitor, tele monitoring, serial cardiac enzymes, carotid dopplers, ECHO, neuro exams, ST/PT/OT, swallow screen, signal operator linguist consult, DCP consult, and brought patient in as Inpatient. On 02/23, based on documentation from 02/22, [employer]/EHR recommended Obs status. Cardiac enzymes were neg, hem ck neg, D-dimer 0.9, K was 5.1 & Cr 1.69 ( baseline Cr unknown per H&P documentation), BP as low as 113/52 -> attending began NS IVF @125, ordered hemoccult (?gastric ulcer with blood loss causing the anemia, greater potential given apparently has had recent H.pylori per Rx list), BC, ur cx (checking for infection causing hypotension), Mag & Phos levels , prn IV morphine for pain control. All 3 usual BP meds continued to be held due to BP & CUBA. Pt needed prn IV morphine 3x on 02/23. On 02/24, BP as low as 108/69. Attending changed status to Obs, based on [employer]/ EHR recommendation. She gave more detail about clinical thinking/concerns in note, noted she was awaiting ECHO results, with possible need for cardiology consult. She ordered MRI/MRA, renal U/S (noting concern for nephrolithiasis causing the CUBA), PT eval (again), O2 sat, orthostatics, bed alarm, falls precautions, RPR, Lyme testing, thyroid tests, HANNAH, RPR, CRP, HANNAH, HIV panel, ABG, PSA, and subsequently ordered stress testing and cardiology consult. She continued to hold all 3 BP meds, continued IVF @125. On 02/25, BP as low as 108/50. Cr down to 1.48, K still high at 5.1, though Hgb down to 10.7 (dilutional?). Attending documented pt depressed/lonely, suspected abd pain was from severe shingles, noted neg tests so far, including Cardiolite stress test. PT eval, not done 02/24 because pt was in MRI at time, found pt w/impaired strength all ext.s, falls risk w/impaired standing balance, poor safety awareness, unsafe unsteady gait, could onofre walk 40 ft w/mod assist of 1-2 w/FWW, w/freq knee buckling. Attg suspected neuropathy, possibly from B12 defic, affecting balance & gait, recommends "extensive PT/rehab" in addition to consideration of antidep. Plan included continued IVF @125, giving Kayexalate x1, & continuing to follow chemistries. Continuing to give IVF is higher risk in this pt due to underlying chr diastolic CHF, but is needed to support BP & help CUBA resolve - this requires close monitoring in hospital for pt safety. Kidney fn still not back to baseline after 3 days of IVF & holding PIPPA-I/ thiazide. Continues to have intermittent hypotension - despite continuously holding pt's 3 BP agents & giving IVF; BP already as low as 110/39 this AM. Cont'd hypotension in pt w/unsteady gait further increases risks for falls/fx.s/ further debility. Pt needs ongoing PT in short term due to 60-79% impairment of mobility. Pt appears to have possible depression, which could be worsened by neurontin, but also needs neurontin for post-herpetic neuralgia, & still having much pain from that. CK
[2018-02-26 12:38] LABS: ANTICHROMATIN AB <0.2 AI (0.0-0.9); CENTROMERE B AB <0.2 AI (0.0-0.9); JO-1 ANTIBODY (ANACOMP) <0.2 AI (0.0-0.9); RNP AB <0.2 AI (0.0-0.9); SCLERODERMA-70 ANTIBODIES <0.2 AI (0.0-0.9); SJOGREN'S ANTI-SS-B AB <0.2 AI (0.0-0.9); SJOGREN'S SS-A ANTIBODY <0.2 AI (0.0-0.9); SMITH AB ANA <0.2 AI (0.0-0.9)
[2018-02-26 13:46] LABS: DNA DOUBLE STRAND ANTIBODY ANA <1 IU/mL (0-9)
--- NOTE | 2018-02-26 18:30 | PDOC PROGRESS REPORT ---
Subjective Progress Note for:: 02/26/18 Subjective:: The patient is resting in his bed. Continues to have pain from his shingles and he states that none of the medications are really helping. He is quite frustrated about this. Overall he states that he cannot walk and he wants to go to rehabilitation as soon as possible so that he can start getting his strength back. He denies fever chills. No chest pain, shortness of breath or cough. No nausea vomiting or diarrhea. No urinary complaints. Reason For Visit: CHF EXACERBATION, UCBA, HYPERKALEMIA Physical Exam Vital Signs: Temp Pulse Resp BP Pulse Ox 98.1 F 84 16 125/51 L 100 02/26/18 10:59 02/26/18 14:00 02/26/18 10:59 02/26/18 10:59 02/26/18 10:59 General appearance: PRESENT: no acute distress, well-developed, well-nourished Head exam: PRESENT: atraumatic, normocephalic Eye exam: PRESENT: conjunctiva pink, EOMI, PERRLA. ABSENT: scleral icterus Ear exam: PRESENT: normal external ear exam Neck exam: ABSENT: carotid bruit, JVD, lymphadenopathy, thyromegaly Respiratory exam: PRESENT: clear to auscultation karina. ABSENT: rales, rhonchi, wheezes Cardiovascular exam: PRESENT: RRR. ABSENT: diastolic murmur, rubs, systolic murmur GI/Abdominal exam: PRESENT: other - He has painful skin lesions across the lateral right abdomen consistent with shingles Rectal exam: PRESENT: deferred Extremities exam: PRESENT: full ROM. ABSENT: calf tenderness, clubbing, pedal edema Neurological exam: PRESENT: alert, awake, oriented to person, oriented to place , oriented to time, oriented to situation, CN II-XII grossly intact. ABSENT: motor sensory deficit Skin exam: PRESENT: dry, intact, warm. ABSENT: cyanosis, rash Results Impressions: Chest X-Ray 02/22/18 13:21 IMPRESSION: NO ACUTE RADIOGRAPHIC FINDING IN THE CHEST. Head CT 02/22/18 20:39 IMPRESSION: No acute intracranial findings. EVIDENCE OF ACUTE STROKE: NO. Brain MRI with MRA 02/24/18 00:00 IMPRESSION: NORMAL MRA OF THE [place] OF [place]. Head MRI 02/24/18 00:00 IMPRESSION: No acute abnormality in the brain. EVIDENCE OF ACUTE STROKE: NO. Renal Ultrasound 02/25/18 00:00 IMPRESSION: NORMAL RENAL AND BLADDER ULTRASOUND. Assessment & Plan - Diagnosis (1) Acute on chronic renal failure Is this a current diagnosis for this admission?: Yes Plan: In reviewing the patient's records it seems that his baseline creatinine is around 1.4. His acute renal failure has resolved and the patient's creatinine is just about back to its baseline. His acute renal failure was due to volume depletion and dehydration (2) Near syncope Is this a current diagnosis for this admission?: Yes Plan: Secondary to dehydration and probable orthostatic hypotension prior to admission. Also it could have been due to his blood pressure medications as he has had fairly low blood pressures off of everything prior to this hospitalization. He has had no further near syncopal episodes. (3) Herpes zoster Is this a current diagnosis for this admission?: Yes Plan: Continue gabapentin. (4) Uncontrolled pain Is this a current diagnosis for this admission?: Yes Plan: Continue gabapentin. (5) Hyperkalemia Is this a current diagnosis for this admission?: Yes Plan: He will be given a dose of Kayexalate today. Hopefully we can get this back to normal. (6) GERD (gastroesophageal reflux disease) Is this a current diagnosis for this admission?: Yes Plan: Continue PPI (7) Hypertension Is this a current diagnosis for this admission?: Yes Plan: He initially was on multiple blood pressure medications but his blood pressures have been on the low side this entire hospitalization. I do not believe he needs ongoing medication for his blood pressure and overmedication could have caused his near syncopal episode at the time of admission. (8) Chronic diastolic heart failure Is this a current diagnosis for this admission?: Yes Plan: No evidence of exacerbation (9) Anemia of chronic disease Is this a current diagnosis for this admission?: Yes Plan: Stable - Time Time Spent with patient: 25-34 minutes - Inpatient Certification Medical Necessity: Need for Pain Control, Other - Inpatient hospitalization remains necessary for disposition at this point. The patient has significant ambulatory dysfunction and is unable to live independently. He needs subacute rehabilitation in may ultimately require assisted living or prison placement if he does not get much strength back. The discharge planners are working on this and he will be transitioned to a facility as soon as a bed is found.
[2018-02-26] MEDS ORDERED: CYANOCOBALAMIN (VITAMIN B-12) INJ 1000 MCG/1 ML VIAL IM SCH (20:00)
[2018-02-27 05:20] LABS: ABSOLUTE BASOPHILS # (AUTO) 0.1 10^3/uL (0.0-0.2); ABSOLUTE EOSINOPHILS # (AUTO) 0.3 10^3/uL (0.0-0.6); ABSOLUTE LYMPHOCYTES (AUTO) 1.7 10^3/uL (0.5-4.7); ABSOLUTE MONOCYTES (AUTO) 0.6 10^3/uL (0.1-1.4); BASOPHILS % (AUTO) 1.4 % (0-2); EOSINOPHILS % (AUTO) 5.5 % (0-6); HEMATOCRIT 34.4 % (37.9-51.0); HEMOGLOBIN 11.9 g/dL (13.5-17.0); LYMPHOCYTES % (AUTO) 37.4 % (13-45); MEAN CORPUSCULAR HEMOGLOBIN 32.2 pg (27.0-33.4); MEAN CORPUSCULAR HGB CONC 34.6 g/dL (32.0-36.0); MEAN CORPUSCULAR VOLUME 93 fl (80-97); MONOCYTES % (AUTO) 12.6 % (3-13); PLATELET COUNT 288 10^3/uL (150-450); RED CELL DISTRIBUTION WIDTH 13.6 % (11.5-14.0); SEGMENTED NEUTROPHILS % (AUTO) 43.1 % (42-78); TOTAL CELLS COUNTED % (AUTO) 100 %; WHITE BLOOD COUNT 4.6 10^3/uL (4.0-10.5)
[2018-02-27 05:46] LABS: ANION GAP 11 (5-19); BLOOD UREA NITROGEN 23 mg/dL (7-20); CALCIUM 9.3 mg/dL (8.4-10.2); CARBON DIOXIDE 25 mmol/L (22-30); CHLORIDE 107 mmol/L (98-107); GLUCOSE 114 mg/dL (75-110); POTASSIUM 4.6 mmol/L (3.6-5.0); SODIUM 142.5 mmol/L (137-145)
[2018-02-27] MEDS: AMOXICILLIN TRIHYDRATE 500 MG CAPSULE PO SCH ×2 (05:59→17:10)
[2018-02-27] MEDS: LANSOPRAZOLE 30 MG TAB.RAP.DR PO SCH ×2 (06:00→17:13)
[2018-02-27] MEDS: GABAPENTIN 300 MG CAPSULE PO SCH ×2 (06:00→13:03)
[2018-02-27] MEDS: CLARITHROMYCIN 500 MG TABLET PO SCH ×2 (06:00→17:09)
[2018-02-27 07:34] LABS: LYME DISEASE IGM AB <0.80 index (0.00-0.79)
[2018-02-27] MEDS: DOCUSATE SODIUM 100 MG CAPSULE PO SCH ×2 (09:06→17:13)
[2018-02-27] MEDS: ENOXAPARIN SODIUM INJ 30 MG/0.3 ML DISP.SYRIN SUBCUT SCH (09:06)
[2018-02-27] MEDS: ASPIRIN 81 MG TABLET, ENT COATED PO SCH (09:06)
[2018-02-27] MEDS: HYDROCODONE/ACETAMINOPHEN 5-325 MG TABLET PO PRN (10:43)
--- NOTE | 2018-02-27 13:45 | PDOC TRANSFER SUMMARY ---
General - Admit/Disc Date/PCP Admission Date/Primary Care Provider: 02/26/18 11:59 MARY ANNE MONROE MD Discharge Date: 02/27/18 - Discharge Diagnosis (1) Acute on chronic renal failure Is this a current diagnosis for this admission?: Yes Summary: Secondary to dehydration. Resolved (2) Near syncope Is this a current diagnosis for this admission?: Yes Summary: Likely secondary to orthostatic hypotension and dehydration. He has had no further episodes. Also the patient may have been on too many blood pressure medications. (3) Herpes zoster Is this a current diagnosis for this admission?: Yes Summary: Continue gabapentin. (4) Uncontrolled pain Is this a current diagnosis for this admission?: Yes Summary: Continue gabapentin. He has low-dose hydrocodone available as well. His uncontrolled pain is due to postherpetic neuralgia (5) Hyperkalemia Is this a current diagnosis for this admission?: Yes Summary: Resolved. (6) GERD (gastroesophageal reflux disease) Is this a current diagnosis for this admission?: Yes Summary: Continue PPI (7) Hypertension Is this a current diagnosis for this admission?: Yes Summary: The patient initially was on multiple blood pressure medications at the time of admission. His blood pressure was quite low. Initially this was felt to be due to dehydration however after he was hydrated and his acute renal failure beginning to resolve his blood pressure remains quite low. All of his medications continued to be held. He no longer needs any treatment. This could have contributed to his near syncopal episode at home. (8) Chronic diastolic heart failure Is this a current diagnosis for this admission?: Yes Summary: He was volume depleted at the time of admission. Currently euvolemic (9) Anemia of chronic disease Is this a current diagnosis for this admission?: Yes Summary: Stable - Additional Information Discharge Diet: Regular Discharge Activity: Activity As Tolerated, Balance Activity w/Rest, Slowly Increase Activity, Supervised Activity Prescriptions: Hydrocodone/Acetaminophen [[place] 5-325 mg Tablet] 1 tab PO Q8HP PRN #20 tablet PRN Reason: Gabapentin 2 cap PO TID #180 capsule Home Medications: Omeprazole 40 mg PO DAILY 02/22/18 Amoxicillin Trihydrate [Amoxil 500 mg Capsule] 1,000 mg PO Q12A capsule Aspirin [Ecotrin 81 mg EC Tablet] 81 mg PO DAILY tabec 02/27/18 Clarithromycin [Biaxin 500 mg Tablet] 500 mg PO Q12A tablet 02/27/18 Docusate Sodium [Colace 100 mg Capsule] 100 mg PO BID capsule 02/27/18 Gabapentin 2 cap PO TID #180 capsule 02/27/18 Hydrocodone/Acetaminophen [[place] 5-325 mg Tablet] 1 tab PO Q8HP PRN #20 tablet 02/27/18 Polyethylene Glycol 3350 [Miralax Powder 17 gm/Packet] 17 gm PO DAILYP PRN powd.pack 02/27/18 History of Present Illness Admission Date/PCP: 02/26/18 11:59 MARY ANNE MONROE MD History of Present Illness: CANDIDO WHITFIELD JR is a 77 year old male who presented to the emergency room after having a near syncopal episode at home. Hospital Course Hospital Course: The patient is an extremely pleasant 77-year-old -[place] male who presented to the emergency room with generalized weakness. He had had a near syncopal episode at home. At the time of admission he was quite distraught and crying as he recounted his most recent history. 4 months prior to admission he developed a significant shingles infection. Since that time he has had issue with significant postherpetic neuralgia. He has had unrelenting pain and had been feeling so bad. He recently had been diagnosed with what sounds like an H pylori infection as an outpatient and was being treated. He was not eating and drinking well. He got up and almost passed out and presented to the emergency room for further evaluation. He was found to have evidence of acute renal failure. He was quite volume depleted. He was admitted to the hospital and started on IV fluids. He has had a fairly extensive workup. He had a renal ultrasound as well as renal Dopplers performed that were negative. He had an MRI of the brain to evaluate his dizziness which was negative as well. He also had an unremarkable stress test performed. His workup was totally negative. At this point I believe his acute renal failure was due to dehydration. He is significantly weak after this acute illness and the patient and the family have decided to pursue subacute rehabilitation prior to returning to the home setting. I was notified by the discharge planners that the patient had a bed available this afternoon and he will be transported there today in stable condition. Physical Exam Vital Signs: Temp Pulse Resp BP Pulse Ox 98.0 F 81 16 135/66 H 100 02/27/18 07:41 02/27/18 07:41 02/27/18 07:41 02/27/18 07:41 02/27/18 07:41 Intake & Output 02/26/18 02/27/18 02/28/18 06:59 06:59 06:59 Intake Total 1414 Output Total 800 550 Balance 614 -550 Weight 82 kg General appearance: PRESENT: no acute distress, well-developed, well-nourished Head exam: PRESENT: atraumatic, normocephalic Mouth exam: PRESENT: moist, tongue midline Respiratory exam: PRESENT: clear to auscultation karina. ABSENT: rales, rhonchi, wheezes Cardiovascular exam: PRESENT: RRR. ABSENT: diastolic murmur, rubs, systolic murmur GI/Abdominal exam: PRESENT: normal bowel sounds, soft, other - Has a rash consistent with shingles across his right abdomen. ABSENT: distended, guarding , mass, organolmegaly, rebound, tenderness Rectal exam: PRESENT: deferred Extremities exam: PRESENT: full ROM. ABSENT: calf tenderness, clubbing, pedal edema Neurological exam: PRESENT: alert, awake, oriented to person, oriented to place , oriented to time, oriented to situation, CN II-XII grossly intact. ABSENT: motor sensory deficit Psychiatric exam: PRESENT: appropriate affect, normal mood. ABSENT: homicidal ideation, suicidal ideation Skin exam: PRESENT: dry, intact, warm. ABSENT: cyanosis, rash Results Laboratory Results: 02/27/18 04:30 02/27/18 04:30 02/27/18 02/27/18 04:30 04:30 WBC 4.6 RBC 3.70 L Hgb 11.9 L Hct 34.4 L MCV 93 MCH 32.2 MCHC 34.6 RDW 13.6 Plt Count 288 Seg Neutrophils % 43.1 Lymphocytes % 37.4 Monocytes % 12.6 Eosinophils % 5.5 Basophils % 1.4 Absolute Neutrophils 2.0 Absolute Lymphocytes 1.7 Absolute Monocytes 0.6 Absolute Eosinophils 0.3 Absolute Basophils 0.1 Sodium 142.5 Potassium 4.6 Chloride 107 Carbon Dioxide 25 Anion Gap 11 BUN 23 H Creatinine 1.36 H Est GFR ( Amer) > 60 Est GFR (Non-Af Amer) 51 L Glucose 114 H Calcium 9.3 Magnesium 2.1 Impressions: Chest X-Ray 02/22/18 13:21 IMPRESSION: NO ACUTE RADIOGRAPHIC FINDING IN THE CHEST. Head CT 02/22/18 20:39 IMPRESSION: No acute intracranial findings. EVIDENCE OF ACUTE STROKE: NO. Brain MRI with MRA 02/24/18 00:00 IMPRESSION: NORMAL MRA OF THE [place]. Head MRI 02/24/18 00:00 IMPRESSION: No acute abnormality in the brain. EVIDENCE OF ACUTE STROKE: NO. Renal Ultrasound 02/25/18 00:00 IMPRESSION: NORMAL RENAL AND BLADDER ULTRASOUND. Transfer Plan - Disposition Transfer Plan: Transfer to [facility] in stable condition. - Time Spent with Patient Time spent with patient: Greater than 30 Minutes Qualifiers - * PATIENT BEING DISCHARGED WITH ANY OF THE FOLLOWING DIAGNOSIS: No Plan Time Spent: Greater than 30 Minutes
[2018-02-27 20:30] VITALS: BP 131/74
== END 2018-02-27 20:40 | DRG 683 ==
LOC: ER 13:03 → INTOOBSV 18:07 → OBSVTOIN 18:07 → EH 18:07 → 2N 20:25 → 3W 22:38 → OBSVTOIN 02-26 11:59
PROVIDERS: ADMIT Internal Medicine; ATTEND Internal Medicine
DX: N17.9 Acute kidney failure, unspecified (principal); B02.8 Zoster with other complications; I50.32 Chronic diastolic (congestive) heart failure; I13.0 Hypertensive heart and chronic kidney disease with heart failure and stage 1 through stage 4 chronic kidney disease, or unspecified chronic kidney disease; B02.9 Zoster without complications; I11.0 Hypertensive heart disease with heart failure; N18.9 Chronic kidney disease, unspecified; E87.5 Hyperkalemia; N40.0 Benign prostatic hyperplasia without lower urinary tract symptoms; K21.9 Gastro-esophageal reflux disease without esophagitis; E86.0 Dehydration; R53.1 Weakness; R52 Pain, unspecified
CPT/HCPCS: 36415; 70450; 70544; 70551; 71046; 76775; 78452; 80048; 80053; 81001; 82272; 82550; 82553; 82607; 82746; 82803; 83036; 83735; 84100; 84153; 84439; 84443; 84484; 85025; 85379; 85652; 86140; 86225; 86235; 86592; 86617; 86618; 86701; 86702; 87040; 87086; 93005; 93010; 93017; 99285; A9500; G0378; G8978-GP; G8979-GP; G8999-GN; G9186-GN; J1650; J2270; J2785; J3420; J3490; J7030; Q9969

== ENCOUNTER 2018-12-06 07:20 | Day surgery (SDC) | payer MEDICARE ==
[2018-12-06] MEDS ORDERED: PROPOFOL INJ 200 MG/20 ML VIAL IV ONE (08:08)
[2018-12-06 09:26] VITALS: BP 137/70
--- NOTE | 2018-12-06 12:19 | Operative Report ---
Operative Report DATE OF SURGERY: 12/06/18 Operative Report: The risks benefits and alternatives of the procedure explained to the patient in detail and informed consent is obtained.A GIF Olympus video scope was inserted into the patient's mouth and hypopharynx, the esophagus is identified intubated and insufflated, the scope was then advanced through the esophagus stomach and duodenum ,retroflexion maneuver is done ,the esophagus stomach and first and second portions of the duodenum examined. PREOPERATIVE DIAGNOSIS: Epigastric pain, heme positive stool POSTOPERATIVE DIAGNOSIS: Gastritis status post biopsy rule out Helicobacter pylori OPERATION: EGD with biopsy SURGEON: FAUZIA LEYVA ANESTHESIA: LMAC TISSUE REMOVED OR ALTERED: As noted above. COMPLICATIONS: None. ESTIMATED BLOOD LOSS: None. INTRAOPERATIVE FINDINGS: As noted above. PROCEDURE: Patient tolerated the procedure well. No immediate postprocedure complications are noted. Patient is discharged in good condition. Discharge date 12/06/2018. Discharge diet: Regular. Discharge activity: Regular. 2 to 3-week follow-up to discuss findings. Patient is instructed to call the office or proceed to the emergency room should there be any further questions. Wait on the pathology.
== END 2018-12-06 09:45 | disposition home or self-care (01) ==
LOC: END 07:20
PROVIDERS: ATTEND Internal Medicine Gastroenterology
DX: K29.50 Unspecified chronic gastritis without bleeding (principal); K21.9 Gastro-esophageal reflux disease without esophagitis; I12.9 Hypertensive chronic kidney disease with stage 1 through stage 4 chronic kidney disease, or unspecified chronic kidney disease; N18.2 Chronic kidney disease, stage 2 (mild); E78.5 Hyperlipidemia, unspecified; R73.9 Hyperglycemia, unspecified; Z86.718 Personal history of other venous thrombosis and embolism; Z79.899 Other long term (current) drug therapy; Z79.82 Long term (current) use of aspirin
CPT/HCPCS: 43239; 88342 ×2; 88305 ×2; J2704

== ENCOUNTER 2019-05-13 05:04 | Emergency (ER) | payer MEDICARE ==
[2019-05-13 06:04] LABS: APPEARANCE,URINE CLEAR; BILIRUBIN,URINE NEGATIVE (NEGATIVE); COLOR,URINE STRAW; GLUCOSE, URINE NEGATIVE (NEGATIVE); KETONES,URINE NEGATIVE (NEGATIVE); LEUKOCYTE ESTERASE,URINE LARGE (NEGATIVE); NITRITE,URINE NEGATIVE (NEGATIVE); PROTEIN,URINE NEGATIVE (NEGATIVE); UROBILINOGEN,URINE NEGATIVE mg/dL (<2.0)
[2019-05-13 06:06] LABS: URINE SPECIFIC GRAVITY 1.004
[2019-05-13 06:13] LABS: ABSOLUTE BASOPHILS # (AUTO) 0.1 10^3/uL (0.0-0.2); ABSOLUTE EOSINOPHILS # (AUTO) 0.3 10^3/uL (0.0-0.6); ABSOLUTE LYMPHOCYTES (AUTO) 2.6 10^3/uL (0.5-4.7); ABSOLUTE MONOCYTES (AUTO) 0.6 10^3/uL (0.1-1.4); ABSOLUTE NEUT (AUTO) 2.8 10^3/uL (1.7-8.2); EOSINOPHILS % (AUTO) 4.1 % (0-6); HEMATOCRIT 38.6 % (37.9-51.0); HEMOGLOBIN 13.2 g/dL (13.5-17.0); LYMPHOCYTES % (AUTO) 41.3 % (13-45); MEAN CORPUSCULAR HGB CONC 34.1 g/dL (32.0-36.0); MEAN CORPUSCULAR VOLUME 91 fl (80-97); PLATELET COUNT 217 10^3/uL (150-450); RED BLOOD COUNT 4.25 10^6/uL (4.35-5.55); RED CELL DISTRIBUTION WIDTH 14.1 % (11.5-14.0); SEGMENTED NEUTROPHILS % (AUTO) 44.6 % (42-78); TOTAL CELLS COUNTED % (AUTO) 100 %; WHITE BLOOD COUNT 6.3 10^3/uL (4.0-10.5)
[2019-05-13 06:53] LABS: ALBUMIN 4.1 g/dL (3.5-5.0); ALKALINE PHOSPHATASE 81 U/L (38-126); ANION GAP 9 (5-19); ASPARTATE AMINO TRANSFERASE 36 U/L (17-59); BILIRUBIN,DIRECT 0.2 mg/dL (0.0-0.4); BILIRUBIN,TOTAL 0.4 mg/dL (0.2-1.3); BLOOD UREA NITROGEN 23 mg/dL (7-20); CALCIUM 9.7 mg/dL (8.4-10.2); CARBON DIOXIDE 27 mmol/L (22-30); CHLORIDE 101 mmol/L (98-107); GLUCOSE 95 mg/dL (75-110); POTASSIUM 4.7 mmol/L (3.6-5.0); TOTAL PROTEIN 7.3 g/dL (6.3-8.2)
--- NOTE | 2019-05-13 07:24 | ER Document Report ---
ED General - General Chief Complaint: Urinary Frequency Stated Complaint: LEFT SIDE PAIN Time Seen by Provider: 05/13/19 06:51 TRAVEL OUTSIDE OF THE [place] IN LAST 30 DAYS: No - HPI Context: Patient presents with 3 weeks of throbbing left lower quadrant pain and urinary frequency and burning with urination. Her left lower quadrant pain is nonradiating no black or red stools no nausea vomiting or diarrhea no recent fevers or chills no chest pain or shortness of breath. No history of constipation. - Related Data Allergies/Adverse Reactions: No Known Allergies Allergy (Verified 12/06/18 07:32) Past Medical History - Social History Smoking Status: Never Smoker Frequency of alcohol use: None Family History: Hypertension. denies: DM, Hyperlipidemia Patient has suicidal ideation: No Patient has homicidal ideation: No - Past Medical History Cardiac Medical History: Reports: Hx Hypertension - ON MEDS Denies: Hx Coronary Artery Disease, Hx Heart Attack Pulmonary Medical History: Denies: Hx Asthma, Hx Bronchitis, Hx COPD, Hx Pneumonia Neurological Medical History: Denies: Hx Cerebrovascular Accident, Hx Seizures Renal/ Medical History: Reports: Hx Benign Prostatic Hyperplasia, Hx Kidney Stones. Denies: Hx Peritoneal Dialysis Malignancy Medical History: Reports Hx Skin Cancer GI Medical History: Reports: Hx Gastroesophageal Reflux Disease Musculoskeletal Medical History: Denies Hx Arthritis Psychiatric Medical History: Reports: Hx Depression Past Surgical History: Reports: Hx Vascular Surgery - Left carotid artery endarterectomuy, Other - SKIN CANCER ON NECK REMOVED - Immunizations Hx Diphtheria, Pertussis, Tetanus Vaccination: Yes Hx Pneumococcal Vaccination: 10/14/18 Review of Systems - Review of Systems Constitutional: No symptoms reported EENT: No symptoms reported Cardiovascular: No symptoms reported Respiratory: No symptoms reported Gastrointestinal: See HPI Genitourinary: See HPI Male Genitourinary: No symptoms reported Musculoskeletal: No symptoms reported Skin: No symptoms reported Hematologic/Lymphatic: No symptoms reported Neurological/Psychological: No symptoms reported Physical Exam - Vital signs Vitals: Temp Pulse Resp BP Pulse Ox 98 F 77 17 144/74 H 100 05/13/19 05:24 05/13/19 05:24 05/13/19 05:24 05/13/19 05:24 05/13/19 05:24 - General General appearance: Appears well, Alert - HEENT Head: Normocephalic, Atraumatic - Respiratory Respiratory status: No respiratory distress Chest status: Nontender Breath sounds: Normal Chest palpation: Normal - Cardiovascular Rhythm: Regular Heart sounds: Normal auscultation Murmur: No - Abdominal Inspection: Normal Distension: No distension Bowel sounds: Normal Tenderness: Other - Mild tenderness left lower quadrant - Back Back: Normal. No: CVA tenderness - Neurological Neuro grossly intact: Yes Cognition: Normal Orientation: AAOx4 Course - Re-evaluation Re-evalutation: 05/13/19 09:00 Patient has burning with urination increased frequency bladder wall thickening. Labs otherwise within normal limits are nonsignificant. She does have large leuk esterase and small amount of whites. Clinically she is having symptoms of UTI will provide Keflex. She is to follow-up with her family doctor the next 3 to 5 days if symptoms are not improving. CT abdomen does not show any acute findings of concern. - Vital Signs Vital signs: Temp Pulse Resp BP Pulse Ox 98 F 77 17 144/74 H 100 05/13/19 05:24 05/13/19 05:24 05/13/19 05:24 05/13/19 05:24 05/13/19 05:24 - Laboratory Result Diagrams: 05/13/19 05:59 05/13/19 05:59 Laboratory results interpreted by me: 05/13/19 05/13/19 05/13/19 05:25 05:59 05:59 RBC 4.25 L Hgb 13.2 L RDW 14.1 H Sodium 136.7 L BUN 23 H Creatinine 1.77 H Est GFR ( Amer) 45 L Est GFR (MDRD) Non-Af 37 L Ur Leukocyte Esterase LARGE H Discharge - Discharge Clinical Impression: Dysuria Condition: Good Disposition: HOME, SELF-CARE Instructions: Urinary Tract Infection ([facility]) Prescriptions: Cephalexin Monohydrate [Keflex 500 mg Capsule] 500 mg PO TID 5 Days #21 capsule
--- NOTE | 2019-05-13 08:44 | RADIOLOGY REPORT (SQ) ---
EXAM DESCRIPTION: CT ABD/PELVIS NO ORAL OR IV COMPLETED DATE/TIME: 05/13/2019 8:26 am REASON FOR STUDY: LLQ pain COMPARISON: 11/27/2017 TECHNIQUE: CT scan of the abdomen and pelvis performed without intravenous or oral contrast. Images reviewed with lung, soft tissue, and bone windows. Reconstructed coronal and sagittal MPR images revi ewed. All images stored on PACS. All CT scanners at this facility use dose modulation, iterative reconstruction, and/or weight based d osing when appropriate to reduce radiation dose to as low as reasonably achievable (ALARA). [facility]: Dose Right [facility]: CareDose [facility]: Dose Right [facility]: Teradose 4D [facility]: Smart [employer] RADIATION DOSE: CT Rad equipment meets quality standard of care and radiation dose reduction techniq ues were employed. CTDIvol: 12.2 mGy. DLP: 671 mGy-cm.mGy. LIMITATIONS: None. FINDINGS: LOWER CHEST: Coronary artery calcifications. . No nodules or infiltrates. NON-CONTRASTED LIVER, SPLEEN, ADRENALS: Evaluation limited by lack of IV contrast. No identified sign ificant masses. PANCREAS: No masses. No peripancreatic inflammatory changes. GALLBLADDER: No identified stones by CT criteria. No inflammatory changes to suggest cholecystitis. RIGHT KIDNEY AND URETER: No suspicious masses. Assessment limited by lack of IV contrast. No signif icant calcifications. No hydronephrosis or hydroureter. LEFT KIDNEY AND URETER: No suspicious masses. Assessment limited by lack of IV contrast. No signifi cant calcifications. No hydronephrosis or hydroureter. AORTA AND RETROPERITONEUM: No aneurysm. No retroperitoneal masses or adenopathy. Calcific atheroscle rosis. BOWEL AND PERITONEAL CAVITY: No obvious masses or inflammatory changes. No free fluid. APPENDIX: Normal. PELVIS, BLADDER, AND ABDOMINAL WALL:No abnormal masses. Prostatomegaly. No free fluid. Mild bladde r wall thickening, likely due to chronic outlet obstruction. BONES: No significant findings. OTHER: No other significant finding. IMPRESSION: 1. No acute CT findings to explain left lower quadrant abdominal pain. No significant diverticular disease. 2. Prostatomegaly, with mild bladder wall thickening, likely due to chronic outlet obstruction. Cor relate with urinalysis in the setting of acute pain. 3. Atherosclerosis and coronary artery disease. COMMENT: Quality ID # [id number]: Final reports with documentation of one or more dose reduction techniques (e.g., Automated exposure control, adjustment of the mA and/or kV according to patient size, use of iterative reconstruction technique) TECHNICAL DOCUMENTATION: JOB ID: [id number] [email or web address] All Rights Reserved Reading location - IP/workstation name: [email or web address]
[2019-05-13 09:35] VITALS: BP 134/59
== END 2019-05-13 09:32 | disposition home or self-care (01) ==
LOC: ER 05:04
DX: R30.0 Dysuria (principal); R35.0 Frequency of micturition; R10.32 Left lower quadrant pain
CPT/HCPCS: 36415; 74176; 80053; 81001; 83690; 85025; 99284